=== PATIENT | female | born 1985 | race Caucasian/White ===

== ENCOUNTER 2017-12-29 15:42 | Emergency (ER) | payer SELFPAY ==
[~2017-12-29] VITALS: Ht 154.9 cm; Wt 79.4 kg
[~2017-12-29 15:42] MED LIST: ACHD5005 PO; AMOX500C2 PO; CPR500T PO; FERR-57 PO; HYDR-3714 PO; PHEN100T26 PO; PREN1TAB14 PO; PRM25T PO
[2017-12-29] MEDS ORDERED: NORG1TAB30 (16:07)
[2017-12-29] MEDS ORDERED: METF500T4 (16:07)
--- NOTE | 2017-12-29 16:42 | ED Headache ---
General Chief Complaint: Head/Cervical Problems Stated Complaint: LOSS OF VISION, COLD, SHAKING - PRE DIABETIC Nursing Triage Note: ARRIVED VIA AMB TO ROOM 04. STATES APPX 30 MINUTES AGO HER VISION TURNED TO WHITE FOR APPX 5-7 MINUTES AND THEN SHE DEVELOPED A HEADACHE. Nursing Sepsis Screen: No Definite Risk Source: patient, family Exam Limitations: language barrier (speak Tunisian. Interpretation by family member.) History of Present Illness Date Seen by Provider: Dec 29, 2017 Time Seen by Provider: 16:23 Initial Comments Patient presents to ER by private conveyance with chief complaint that about an hour prior to arrival she had a 15 minute long severe headache that came on suddenly started in her left face behind eye and radiated around the parietal scalp to the occiput. She says her vision began to go white and all she could see was just shadows and this was in both eyes she was practically blind. She was trying to drive home after taking her kids up from school and had to plant puller until someone came to help her. About 15 minutes later without any medicines it went away on its own. She does have a history of migraines that are typically frontal and behind both eyes throbbing, constant and will go away after a couple doses of Excedrin migraine. She had one other episode of this about a month ago that she presented to her primary care physician's office for and they told her that she needed to go to the ER but as she left the clinic the headache went away in about 15-30 minutes so she did not pursue ER management. She did not follow-up on this either. She has not had any cough, fevers, chills, dysuria, nausea, chest pain, shortness of breath. Allergies and Home Medications Allergies Coded Allergies: NKANo Known Allergies (Verified Allergy, Unknown, 05/11/06) Home Medications Metformin HCl 500 Mg Tablet, (Reported) Norgestimate-Ethinyl Estradiol 1 Each Tablet, (Reported) Constitutional: No chills, No diaphoresis Eyes: See HPI, Blindness, Blurred Vision, Denies Drainage, Denies Foreign Body Sensation, Denies Pain, Denies Photophobia Ears, Nose, Mouth, Throat: denies ear pain, denies ear discharge Respiratory: No cough, No phlegm, No short of breath Cardiovascular: No Hx of Intervention, No palpitations Gastrointestinal: No constipation, No diarrhea, nausea (initially) Genitourinary: No discharge, No dysuria : No (on her period presently) LMP: Dec 29, 2017 Musculoskeletal: No back pain, No joint pain Past Xckvanb-Lwbevd-Feenbv Hx Patient Social History Alcohol Use: Denies Use Recreational Drug Use: No Smoking Status: Never a Smoker Recent Foreign Travel: No Contact w/Someone Who Travel: No Recent Infectious Disease Expo: No Recent Hopitalizations: Yes Immunizations Up To Date Tetanus Booster (TDap): Less than 5yrs Date of Influenza Vaccine: Oct 26, 2013 Surgeries History of Surgeries: No Respiratory History of Respiratory Disorde: No Cardiovascular History of Cardiac Disorders: No Neurological History of Neurological Disord: No Reproductive System Hx Reproductive Disorders: No Sexually Transmitted Disease: No HIV/AIDS: No Female Reproductive Disorders: Denies Genitourinary History of Genitourinary Disor: Yes Genitourinary Disorders: Kidney Infection, Kidney Stones Gastrointestinal History of Gastrointestinal Di: No Musculoskeletal History of Musculoskeletal Dis: No Endocrine History of Endocrine Disorders: Yes (PRE DIABETIC) HEENT Loss of Vision: Denies Hearing Impairment: Denies Cancer History of Cancer: No Psychosocial History of Psychiatric Problem: No Integumentary History of Skin or Integumenta: No Blood Transfusions History of Blood Disorders: Yes (ANEMIA WITH Previous ) Adverse Reaction to a Blood Tr: No Family Medical History Significant Family History: No Pertinent Family Hx Physical Exam Vital Signs Vital Signs - First Documented 12/29/17 15:49 Temp 97.5 Pulse 97 Resp 18 B/P (MAP) 114/79 (91) Pulse Ox 99 Capillary Refill : Less Than 3 Seconds General Appearance: WD/WN, no apparent distress HEENT: PERRL/EOMI, TMs normal, pharynx normal Neck: non-tender, full range of motion, supple, normal inspection Cardiovascular: normal peripheral pulses, regular rate, rhythm, no edema Respiratory: chest non-tender, lungs clear, normal breath sounds Gastrointestinal: normal bowel sounds, non tender, soft Back: normal inspection, no vertebral tenderness Extremities: normal inspection, no pedal edema, normal capillary refill Psychiatric: alert, oriented x 3 Crainal Nerves: normal hearing, normal speech, PERRL Coordination/Gait: normal finger to nose, normal gait Motor/Sensory: no motor deficit, no sensory deficit, no pronator drift Skin: normal color, warm/dry Lymphatic: no adenopathy Progress/Results/Core Measures Results/Orders Lab Results Laboratory Tests Test 12/29/17 15:59 12/29/17 16:30 12/29/17 16:41 Range/Units Glucometer 107 70-110 MG/DL Urine Color YELLOW Urine Clarity VERY CLOUDY H Urine pH 6.5 5-9 Urine Specific [place] 1.020 1.016-1.022 Urine Protein 3+ H NEGATIVE Urine Glucose (UA) NEGATIVE NEGATIVE Urine Ketones NEGATIVE NEGATIVE Urine Nitrite NEGATIVE NEGATIVE Urine Bilirubin NEGATIVE NEGATIVE Urine Urobilinogen 1 NORMAL MG/DL Urine Leukocyte Esterase 1+ H NEGATIVE Urine RBC (Auto) 5+ H NEGATIVE Urine RBC >100 H /HPF Urine WBC 0-2 /HPF Urine Squamous Epithelial Cells 0-2 /HPF Urine Crystals NONE /LPF Urine Bacteria NEGATIVE /HPF Urine Casts NONE /LPF Urine Mucus SMALL H /LPF Urine Culture Indicated NO Urine Opiates Screen NEGATIVE NEGATIVE Urine Oxycodone Screen NEGATIVE NEGATIVE Urine Methadone Screen NEGATIVE NEGATIVE Urine Propoxyphene Screen NEGATIVE NEGATIVE Urine Barbiturates Screen NEGATIVE NEGATIVE Ur Tricyclic Antidepressants Screen NEGATIVE NEGATIVE Urine Phencyclidine Screen NEGATIVE NEGATIVE Urine Amphetamines Screen NEGATIVE NEGATIVE Urine Methamphetamines Screen NEGATIVE NEGATIVE Urine Benzodiazepines Screen NEGATIVE NEGATIVE Urine Cocaine Screen NEGATIVE NEGATIVE Urine Cannabinoids Screen NEGATIVE NEGATIVE White Blood Count 8.9 4.3-11.0 10^3/uL Red Blood Count 4.09 L 4.35-5.85 10^6/uL Hemoglobin 11.1 L 11.5-16.0 G/DL Hematocrit 34 L 35-52 % Mean Corpuscular Volume 82 80-99 FL Mean Corpuscular Hemoglobin 27 25-34 PG Mean Corpuscular Hemoglobin Concent 33 32-36 G/DL Red Cell Distribution Width 14.2 10.0-14.5 % Platelet Count 259 130-400 10^3/uL Mean Platelet Volume 11.1 H 7.4-10.4 FL Neutrophils (%) (Auto) 82 H 42-75 % Lymphocytes (%) (Auto) 15 12-44 % Monocytes (%) (Auto) 2 0-12 % Eosinophils (%) (Auto) 1 0-10 % Basophils (%) (Auto) 0 0-10 % Neutrophils # (Auto) 7.2 1.8-7.8 X 10^3 Lymphocytes # (Auto) 1.3 1.0-4.0 X 10^3 Monocytes # (Auto) 0.2 0.0-1.0 X 10^3 Eosinophils # (Auto) 0.1 0.0-0.3 10^3/uL Basophils # (Auto) 0.0 0.0-0.1 10^3/uL Sodium Level 140 135-145 MMOL/L Potassium Level 3.8 3.6-5.0 MMOL/L Chloride Level 108 H 98-107 MMOL/L Carbon Dioxide Level 18 L 21-32 MMOL/L Anion Gap 14 5-14 MMOL/L Blood Urea Nitrogen 14 7-18 MG/DL Creatinine 0.69 0.60-1.30 MG/DL Estimat Glomerular Filtration Rate > 60 BUN/Creatinine Ratio 20 Glucose Level 113 H 70-105 MG/DL Calcium Level 8.4 L 8.5-10.1 MG/DL Total Bilirubin 0.2 0.1-1.0 MG/DL Aspartate Amino Transf (AST/SGOT) 18 5-34 U/L Alanine Aminotransferase (ALT/SGPT) 14 0-55 U/L Alkaline Phosphatase 69 40-136 U/L C-Reactive Protein High Sensitivity 0.96 H 0.00-0.50 MG/DL Total Protein 7.2 6.4-8.2 GM/DL Albumin 3.6 3.2-4.5 GM/DL My Orders Orders - NATALIE ROBERTS Ct Head Wo (12/29/17 16:30) Saline Lock/Iv-Start (12/29/17 16:30) Alcohol (12/29/17 16:30) Cbc With Automated Diff (12/29/17 16:30) Comprehensive Metabolic Panel (12/29/17 16:30) Hs C Reactive Protein (12/29/17 16:30) Drug Screen Stat (Urine) (12/29/17 16:30) Ua Culture If Indicated (12/29/17 16:30) Erythrocyte Sedimentation Rate (12/29/17 16:30) Vital Signs/I&O Vital Sign - Last 12Hours 12/29/17 15:49 Temp 97.5 Pulse 97 Resp 18 B/P (MAP) 114/79 (91) Pulse Ox 99 Blood Pressure Mean: 91 Progress Note #1: Time: 16:42 Progress Note No headaches or other neurologic symptoms now but this is a change in her headache pattern. Plan to scan her head with a CT noncontrast. Discussed with radiologist in [place] for optimal imaging study and they recommended a CT noncontrast and if further workup is necessary an MRI would be appropriate. We' ll get some blood and urine looking for any evidence of inflammation to include a CRP/ESR. If we don't find anything to act on today she will need to follow-up with her primary care physician for further workup. GCA? Progress Note #2: Time: 17:15 Progress Note Other than a mild normochromic normocytic anemia the patient has unremarkable labs and urine. Red blood cells seen are due to her being on her period. CT is unremarkable. She can follow up outpatient for further evaluation to possibly include MRI for a atypical migraine presentation. Diagnostic Imaging Diagonstic Imaging: CT Plain Films/CT/US/NM/MRI: head (noncontrast) Comments VIA [facility], [facility]. [place], [place] NAME: CHRISTOPHE VARGAS [facility] REC#: [id number] PT STATUS: REG ER : 1985 PHYSICIAN: NATALIE ROBERTS MD ADMIT DATE: 12/29/17/ER Draft Date of Exam:12/29/17 CT HEAD WO Clinical indication: A patient with headaches and loss of vision. Exam: Axial CT scan of the brain performed without IV contrast. Comparison: None. Findings: There is no evidence of acute cerebral infarct, intracranial hemorrhage, or gross mass effect. There is normal arreola-white matter distinction. The brain parenchymal volume appears appropriate for patient's age. There is no significant midline shift or herniation. There is no evidence of hydrocephalus. The basal cisterns are unremarkable. The skull, extracranial soft tissue, and orbits are unremarkable. The paranasal sinuses are unremarkable. Impression: Unremarkable CT scan of the brain. Dictated on workstation # [id number] Dict: 12/29/17 1652 Trans: 12/29/17 1655 [facility] [id number] Interpreted by: KERA OSMAN MD Electronically signed by: Reviewed: Reviewed by Me Departure Impression Impression: Primary Impression: Headache Qualified Codes: R51 - Headache Additional Impressions: Transient blindness of both eyes Normocytic anemia Disposition: 01 HOME, SELF-CARE Condition: Stable Departure-Patient Inst. Decision time for Depature: 17:34 Referrals: [facility] (PCP/Family) Primary Care Physician Patient Instructions: Migraine Headache (DC) Add. Discharge Instructions: Your symptoms may be related to your migraine headache pattern. If the pattern changes and is accompanied by slurred speech, facial droop, inability to walk or weakness you should return to the ER immediately. However if your symptoms remain the same please start a diary of your headache symptoms to include things are doing prior to the headache as well as along the headache lasted and what you used to break the headache. Plan to follow up with your primary care physician in the next 1-2 weeks. You may benefit from a referral to a neurologist if initial workup with your primary care physician is not fruitful. All discharge instructions reviewed with patient and/or family. Voiced understanding. Copy Copies To 1: GET GOLDMAN TITUS J Dec 29, 2017 16:41
[2017-12-29 16:48] LABS: BASOPHILS % (AUTO) 0 % (0-10); EOSINOPHILS # (AUTO) 0.1 10^3/uL (0.0-0.3); EOSINOPHILS % (AUTO) 1 % (0-10); HEMATOCRIT 34 % (35-52); HEMOGLOBIN 11.1 G/DL (11.5-16.0); LYMPHOCYTES # (AUTO) 1.3 X 10^3 (1.0-4.0); LYMPHOCYTES % (AUTO) 15 % (12-44); MEAN CORPUSCULAR HEMOGLOBIN 27 PG (25-34); MEAN CORPUSCULAR HGB CONC 33 G/DL (32-36); MEAN CORPUSCULAR VOLUME 82 FL (80-99); MEAN PLATELET VOLUME 11.1 FL (7.4-10.4); MONOCYTES # (AUTO) 0.2 X 10^3 (0.0-1.0); MONOCYTES % (AUTO) 2 % (0-12); NEUTROPHILS # (AUTO) 7.2 X 10^3 (1.8-7.8); NEUTROPHILS % (AUTO) 82 % (42-75); PLATELET COUNT 259 10^3/uL (130-400); RED BLOOD COUNT 4.09 10^6/uL (4.35-5.85); RED CELL DISTRIBUTION WIDTH 14.2 % (10.0-14.5); WHITE BLOOD COUNT 8.9 10^3/uL (4.3-11.0)
[2017-12-29 16:50] LABS: BILIRUBIN,URINE NEGATIVE (NEGATIVE); CLARITY,URINE VERY CLOUDY; COLOR,URINE YELLOW; GLUCOSE, URINE (UA) NEGATIVE (NEGATIVE); KETONES,URINE NEGATIVE (NEGATIVE); LEUKOCYTE ESTERASE ,URINE 1+ (NEGATIVE); NITRITE,URINE NEGATIVE (NEGATIVE); PH,URINE 6.5 (5-9); PROTEIN,URINE 3+ (NEGATIVE); UROBILINOGEN,URINE 1 MG/DL (NORMAL)
--- NOTE | 2017-12-29 16:55 | Diagnostic Imaging Report ---
Clinical indication: A patient with headaches and loss of vision. Exam: Axial CT scan of the brain performed without IV contrast. Comparison: None. Findings: There is no evidence of acute cerebral infarct, intracranial hemorrhage, or gross mass effect. There is normal arreola-white matter distinction. The brain parenchymal volume appears appropriate for patient's age. There is no significant midline shift or herniation. There is no evidence of hydrocephalus. The basal cisterns are unremarkable. The skull, extracranial soft tissue, and orbits are unremarkable. The paranasal sinuses are unremarkable. Impression: Unremarkable CT scan of the brain. Dictated by: Dictated on workstation # [id number]
[2017-12-29 16:58] LABS: AMPHETAMINE SCREEN, URINE NEGATIVE (NEGATIVE); BARBITURATE SCREEN URINE NEGATIVE (NEGATIVE); BENZODIAZEPINES SCREEN URINE NEGATIVE (NEGATIVE); CANNABINOID SCREEN, URINE NEGATIVE (NEGATIVE); COCAINE SCREEN URINE NEGATIVE (NEGATIVE); METHADONE STAT NEGATIVE (NEGATIVE); METHAMPHETAMINE SCREEN URINE S NEGATIVE (NEGATIVE); OPIATE SCREEN URINE NEGATIVE (NEGATIVE); OXYCODONE STAT NEGATIVE (NEGATIVE); PROPOXYPHENE STAT NEGATIVE (NEGATIVE); TRICYCLIC ANTIDEPRESSANTS SCRE NEGATIVE (NEGATIVE)
[2017-12-29 17:04] LABS: BACTERIA,URINE NEGATIVE /HPF; RBC,URINE >100 /HPF; SQUAMOUS EPITHELIAL CELL,UR 0-2 /HPF; WBC,URINE 0-2 /HPF
[2017-12-29 17:12] LABS: ALANINE AMINOTRANSFERASE 14 U/L (0-55); ALBUMIN 3.6 GM/DL (3.2-4.5); ALKALINE PHOSPHATASE 69 U/L (40-136); BILIRUBIN,TOTAL 0.2 MG/DL (0.1-1.0); BUN/CREATININE RATIO 20; CALCIUM 8.4 MG/DL (8.5-10.1); CARBON DIOXIDE 18 MMOL/L (21-32); CHLORIDE 108 MMOL/L (98-107); CREATININE SERUM 0.69 MG/DL (0.60-1.30); GFR ESTIMATED > 60; GLUCOSE 113 MG/DL (70-105); POTASSIUM 3.8 MMOL/L (3.6-5.0); SODIUM 140 MMOL/L (135-145); TOTAL PROTEIN 7.2 GM/DL (6.4-8.2)
[2017-12-29 17:16] LABS: ERYTHROCYTE SEDIMENTATION RATE 36 MM/HR (0-20)
[2017-12-29 17:40] VITALS: BP 124/80
== END 2017-12-29 17:40 | disposition home or self-care (01) ==
LOC: EDUNIT# 15:42 → ER 15:44
DX: R51 Headache (principal); H53.123 Transient visual loss, bilateral; D64.9 Anemia, unspecified; Z79.84 Long term (current) use of oral hypoglycemic drugs; Z88.1 Allergy status to other antibiotic agents; Z87.442 Personal history of urinary calculi; Z87.448 Personal history of other diseases of urinary system
CPT/HCPCS: 36415; 70450; 80053; 80306; 80320; 81000; 82962; 84703; 85025; 85652; 86141

== ENCOUNTER 2018-06-09 17:45 | Day surgery (SDC) | payer OTHER ==
[~2018-06-09] VITALS: Ht 154.9 cm; Wt 81.6 kg
[2018-06-09 17:45] VITALS: BP 108/66
[~2018-06-09 17:45] MED LIST changes: -HYDR-34 PO; -SULF1TAB35 PO
[2018-06-09] MEDS ORDERED: ONDANSETRON 4 MG/2 ML (SDV) Z0FRAN IVP PRN (18:00)
[2018-06-09] MEDS ORDERED: HYDROcodone/APAP 7.5 MG/325 MG (LORTAB, LORCET PLUS) TABLET PO PRN (18:00)
[2018-06-09 18:25] LABS: BASOPHILS % (AUTO) 0 % (0-10); EOSINOPHILS # (AUTO) 0.2 10^3/uL (0.0-0.3); EOSINOPHILS % (AUTO) 2 % (0-10); HEMATOCRIT 34 % (35-52); HEMOGLOBIN 11.1 G/DL (11.5-16.0); LYMPHOCYTES % (AUTO) 16 % (12-44); MEAN CORPUSCULAR HEMOGLOBIN 27 PG (25-34); MEAN CORPUSCULAR HGB CONC 33 G/DL (32-36); MEAN CORPUSCULAR VOLUME 81 FL (80-99); MEAN PLATELET VOLUME 10.8 FL (7.4-10.4); MONOCYTES # (AUTO) 0.7 X 10^3 (0.0-1.0); MONOCYTES % (AUTO) 6 % (0-12); NEUTROPHILS # (AUTO) 9.2 X 10^3 (1.8-7.8); NEUTROPHILS % (AUTO) 76 % (42-75); PLATELET COUNT 297 10^3/uL (130-400); RED BLOOD COUNT 4.15 10^6/uL (4.35-5.85); RED CELL DISTRIBUTION WIDTH 14.3 % (10.0-14.5); WHITE BLOOD COUNT 12.2 10^3/uL (4.3-11.0)
--- NOTE | 2018-06-09 18:35 | HISTORY AND PHYSICAL ---
DATE OF SERVICE: ATTENDING PRIMARY CARE PHYSICIAN: Dr. Parr. HISTORY OF PRESENT ILLNESS: The patient is a 33-year-old female who presented to [facility] with pain in the right lower abdominal quadrant for the past two days. She reports that the pain is sharp in nature and has increased in severity over time. She does not report any fever or chills; however, did report some mild nausea starting today; however, no vomiting. She states that she has not had this type of symptoms before in the past. She states that no episodes of diarrhea nor constipation. She was sent for CT scan, which did show dilatation as well as mild inflammation of the appendix consistent with an early appendicitis. PAST MEDICAL HISTORY: Non-insulin dependent diabetes, history of nephrolithiasis. PAST SURGICAL HISTORY: Cystoscopy and renal stone extraction. ALLERGIES: No known drug allergies. MEDICATIONS: Metformin daily. SOCIAL HISTORY: Negative smoke, negative alcohol. FAMILY HISTORY: Noncontributory. REVIEW OF SYSTEMS: Well-nourished female currently in no acute distress. She is not experiencing any shortness of breath or difficulty breathing. No chest pain, palpitations, diaphoresis. Intermittent episodes of nausea, no vomiting. Pain in the right lower abdominal quadrant, which is sharp in nature; however, tolerable. No fever, chills, no recent inadvertent weight loss. PHYSICAL EXAMINATION: VITAL SIGNS: Stable, afebrile. CHEST: Clear. Good breath sounds bilaterally. HEART: Regular, no murmurs. EXTREMITIES: No lower extremity edema. Negative Homans sign. HEENT: No scleral icterus. NECK: No cervical lymphadenopathy. ABDOMEN: Soft, nondistended. There is pain in the right lower abdominal quadrant at McBurney's point with voluntary guarding, no rebound. SKIN: Warm, dry. ASSESSMENT AND PLAN: A 33-year-old female with early acute appendicitis. We will proceed with a diagnostic laparoscopy as well as laparoscopic appendectomy. We will first admit her and IV hydrate her as well as start antibiotics. Job ID: [id number] DocumentID: [id number] Dictated Date: 06/09/2018 17:42:10 Duplicating Machine Servicer Date: 06/09/2018 18:35:07 Dictated By: DEBBIE HAAS MD
[2018-06-09 18:41] LABS: BUN/CREATININE RATIO 15; CALCIUM 9.4 MG/DL (8.5-10.1); CARBON DIOXIDE 21 MMOL/L (21-32); CHLORIDE 109 MMOL/L (98-107); CREATININE SERUM 0.65 MG/DL (0.60-1.30); GFR ESTIMATED > 60; GLUCOSE 106 MG/DL (70-105); SODIUM 139 MMOL/L (135-145)
[2018-06-09] MEDS: CIPROFLOXACIN 400 MG/D5W 200 ML (PRE-MIX) IV SCH (18:51)
[2018-06-09] MEDS: LACTATED RINGERS 1,000 ML IV SCH (18:51)
[2018-06-09] MEDS: metroNIDAZOLE 500 MG/100 ML IVPB (PRE-MIX) IV SCH (18:51)
--- NOTE | 2018-06-09 20:01 | Progress Note-Pre Operative ---
Pre-Operative Progress Note H&P Reviewed The H&P was reviewed, patient examined and no changes noted. Date Seen by Provider: Jun 09, 2018 Time Seen by Provider: 20:00 Date H&P Reviewed: Jun 09, 2018 Time H&P Reviewed: 20:00 Pre-Operative Diagnosis: acute appendicitis DEBBIE HAAS MD Jun 09, 2018 20:01
[2018-06-09 20:14] VITALS: BP 104/59
--- OUTSIDE RECORDS SUMMARY | 2018-06-09 22:20 | XMS REPORT | Continuity of Care Document ---
Author Author [facility] Organization [facility] Address Unknown Phone Unavailable Support Name Relationship Address Phone SANDEEP MEDINA Next Of Kin [address] [place] [address] Insurance Providers Payer Name Policy Number Subscriber Name Relationship Self Pay AntelmoRakel 01 Self / Same As Patient Advance Directives Directive Response Recorded Date Advance Directives N 03/30/13 1:22pm Health Care Power of Hand Twister N 07/28/11 8:35pm Organ Donor N 07/28/11 8:35pm Problems No Known Problems or Medical conditions. Family History History Response Recorded Date/Time Hx Family Cancer N 03/30/13 1:36pm Social History History Response Recorded Date/Time Alcohol Use Denies Use 03/30/13 1:33pm Recreational Drug Use N 03/30/13 1:33pm Recent Foreign Travel N 03/30/13 1:33pm Recent Infectious Disease Exposure N 08/04 1:33pm Hospitalization with Isolation Denies 10/04 1:57pm Allergies, Adverse Reactions, Alerts Allergen Type Severity Reaction Last Updated No Known Allergies Allergy Unknown 05/11/06 Medications Medication Dose Units Route Sig Qty Days Ferrous Sulfate 325 Mg PO DAILY Vits W-Ca,Fe,Fa(<1MG) ( Vitamins) 1 Each PO DAILY Response Recorded Date/Time Status not known Unknown Results Test Date Result Interp. Ref. Range Absolute Reticulocyte Count October 28, 2009 4:09pm 41 10^3/uL N 22-82 Activated Partial Thromboplast Time November 15, 2008 12: 05pm 26 SEC N 24-35 Alanine Aminotransferase (ALT/SGPT) October 27, 2012 11: 53am 24 U/L L 30-65 Albumin October 27, 2012 11:53am 3.0 G/ DL L 3.4-5.0 Alkaline Phosphatase October 27, 2012 11:53am 79 U/L N 50-136 Amylase Level October 02, 2009 12:25pm 34 U/L N 25-115 Anisocytosis October 28, 2009 4:09pm MODERATE - Aspartate Amino Transf (AST/SGOT) October 27, 2012 11:53am 11 U/L L 15-37 BUN/Creatinine Ratio October 27, 2012 11:53am 12 - Band Neutrophils October 28, 2009 4:09pm 0 % - Basophils # (Auto) March 31, 2013 3:03pm 0.0 10^3/uL N 0.0-0.1 Basophils % (Manual) October 28, 2009 4:09pm 1 % - Basophils (%) (Auto) March 31, 2013 3:03pm 0 % N 0-10 Blood Urea Nitrogen October 27, 2012 11:53am 7 MG/DL N 7-18 Calcium Level October 27, 2012 11:53am 8.5 MG/DL N 8.5-10.1 Carbon Dioxide Level October 27, 2012 11:53am 23 MMOL/L N 21-32 Chloride Level October 27, 2012 11:53am 103 MMOL/L N 101-110 Cholesterol Level October 02, 2009 12:25pm 151 MG/DL N -200 Creatinine October 27, 2012 11:53am 0.6 MG/DL N 0.6-1.3 Elliptocytes October 28, 2009 4:09pm MODERATE - Eosinophils # (Auto) March 31, 2013 3:03pm 0.2 10^3/uL N 0.0-0.3 Eosinophils % (Manual) October 28, 2009 4:09pm 2 % - Eosinophils (%) (Auto) March 31, 2013 3:03pm 2 % N 0-10 Ferritin October 28, 2009 4:09pm 22 NG/ ML - Glucose Level October 27, 2012 11:53am 81 MG/DL N 74-106 HDL Cholesterol October 02, 2009 12:25pm 40 MG/DL N 35-60 HIV (1&2) Antibody October 27, 2012 11:53am NR - Hematocrit March 31, 2013 3:03pm 28 % L 35-52 Hemoglobin March 31, 2013 3:03pm 9.1 G/DL L 11.5-16.0 Hemoglobin A1c October 27, 2012 11:53am 4.9 % N 4.5-6.2 Hepatitis B Surface Antigen October 27, 2012 11:53am NR - Human Chorionic Gonadotropin, Quant November 15, 2008 12: 05pm 730 MIU/ML H 0-6 Iron Level October 28, 2009 4:09pm 76 UG/DL - LDL Cholesterol October 02, 2009 12:25pm 98 MG/DL N 0-129 Lipase October 02, 2009 12:25pm 163 U/ L N 114-286 Lymphocytes # (Auto) March 31, 2013 3:03pm 1.2 X 10^3 N 1.0-4.0 Lymphocytes % (Manual) October 28, 2009 4:09pm 18 % - Lymphocytes (%) (Auto) March 31, 2013 3:03pm 15 % N 12-44 Mean Corpuscular Hemoglobin March 31, 2013 3:03pm 28 PG N 25-34 Mean Corpuscular Hemoglobin Concent March 31, 2013 3:03pm 33 G/DL N 32-36 Mean Corpuscular Volume March 31, 2013 3:03pm 83 FL N 80-99 Mean Platelet Volume March 31, 2013 3:03pm 11.6 FL H 7.4-10.4 Microcytosis October 28, 2009 4:09pm MODERATE - Monocytes # (Auto) March 31, 2013 3:03pm 0.5 X 10^3 N 0.0-1.0 Monocytes % (Manual) October 28, 2009 4:09pm 1 % - Monocytes (%) (Auto) March 31, 2013 3:03pm 6 % N 0-12 Neutrophils # (Auto) March 31, 2013 3:03pm 6.1 X 10^3 N 1.8-7.8 Neutrophils % (Manual) October 28, 2009 4:09pm 78 % - Neutrophils (%) (Auto) March 31, 2013 3:03pm 76 % H 42-75 Percent Reticulocyte Count October 28, 2009 4:09pm 0.91 % N 0.50-2.40 Platelet Count March 31, 2013 3:03pm 165 10^3/uL N 130-400 Potassium Level October 27, 2012 11:53am 4.1 MMOL/L N 3.6-5.0 Prothromb Time International Ratio November 15, 2008 12: 05pm 1.1 N 0.8-1.4 Prothrombin Time November 15, 2008 12:05pm 15.0 SEC H 12.2-14.7 Rapid Plasma Reagin October 27, 2012 11:53am NR - Red Blood Count March 31, 2013 3:03pm 3.30 10^6/uL L 4.35-5.85 Red Cell Distribution Width March 31, 2013 3:03pm 14.1 % N 10.0-14.5 Rubella Antibody October 27, 2012 11:53am IMMUNE - Schistocytes October 28, 2009 4:09pm SLIGHT - Serum Test, Qualitative November 15, 2008 12:05pm Positive - Sodium Level October 27, 2012 11:53am 134 MMOL/L L 135-145 Spherocytes October 28, 2009 4:09pm SLIGHT - TSH [place] Testing October 27, 2012 11:53am 0.65 UIU/ML N 0.34-5.60 Total Bilirubin October 27, 2012 11:53am 0.3 MG/DL N 0.0-1.0 Total Iron Binding Capacity October 28, 2009 4:09pm 355 UG/DL - Total Protein October 27, 2012 11:53am 7.4 G/DL N 6.4-8.2 Transferrin % Saturation October 28, 2009 4:09pm 21 % - Triglycerides Level October 02, 2009 12:25pm 67 MG/DL N 30.0-150.0 Urine Bacteria March 30, 2013 12:40pm TRACE /HPF - Urine Bilirubin March 30, 2013 12:40pm NEGATIVE - Urine Casts March 30, 2013 12:40pm NONE / LPF - Urine Clarity March 30, 2013 12:40pm CLEAR - Urine Color March 30, 2013 12:40pm YELLOW - Urine Crystals March 30, 2013 12:40pm NONE /LPF - Urine Culture Indicated March 30, 2013 12:40pm YES - Urine Glucose (UA) March 30, 2013 12:40pm NEGATIVE - Urine Ketones March 30, 2013 12:40pm NEGATIVE - Urine Leukocyte Esterase March 30, 2013 12:40pm TRACE H - Urine Mucus March 30, 2013 12:40pm NEGATIVE /LPF - Urine Nitrite March 30, 2013 12:40pm NEGATIVE - Urine Test October 02, 2009 12:30pm NEGATIVE - Urine Protein March 30, 2013 12:40pm NEGATIVE - Urine RBC March 30, 2013 12:40pm 10-25 / HPF H - Urine Specific [place] March 30, 2013 12:40pm 1.025 H - Urine Squamous Epithelial Cells March 30, 2013 12:40pm 0-2 /HPF - Urine Urobilinogen March 30, 2013 12:40pm NORMAL MG/DL - Urine WBC March 30, 2013 12:40pm 5-10 / HPF H - Urine pH March 30, 2013 12:40pm 5 - VLDL Cholesterol October 02, 2009 12:25pm 13 MG/DL N 5-40 White Blood Count March 31, 2013 3:03pm 8.0 10^3/uL N 4.3-11.0 Pathology Consult Specimen October 28, 2009 4:09pm [id number] - Lab Scanned Report May 14, 2011 2:21pm Transfusion Reaction Form [id number] - Smear Scan October 02, 2009 12:25pm - Estimat Glomerular Filtration Rate October 27, 2012 11: 53am > 60 - Urine RBC (Auto) March 30, 2013 12:40pm 2+ H - Procedures Procedure Code Date MANUAL ASSIST DELIV NEC 73.59 05/11/06 TREATMENT OF MISCARRIAGE [id number] 11/15/08 MANUAL ASSIST DELIV NEC 73.59 07/29/11 OTHER INSTILLATION 96.49 07/28/11 MANUAL ASSIST DELIV NEC 73.59 03/30/13 MEDICAL INDUCTION LABOR 73.4 03/30/13 Urine Culture 03/30/13 Encounters Encounter Location Date/Time Discharged Inpatient [facility] 12:36pm
--- OUTSIDE RECORDS SUMMARY | 2018-06-09 22:20 | XMS REPORT | Continuity of Care Document ---
Author Author [facility] Organization [facility] Address Unknown Phone Unavailable Allergies Active Description Code Type Severity Reaction Onset Reported/Identified Relationship to Patient Clinical Status Yes NKANo Known Allergies NKA Miscellaneous Allergy Unknown N/A 05/11/2006 Medications There is no data. Problems Date Dx Coded Attending Type Code Diagnosis Diagnosed By 04/01/2013 CHASIDY PIZANO MD Ot 650 NORMAL DELIVERY 04/01/2013 CHASIDY PIZANO MD Ot V27.0 DELIVER-SINGLE LIVEBORN 09/29/2013 MARCO A DE LA CRUZ Ot 592.0 CALCULUS OF KIDNEY 09/29/2013 MARCO A DE LA CRUZ Ot 789.09 ABDOMINAL PAIN, OTHER SPECIFIED SITE 12/28/2013 CHASIDY PIZANO MD Ot 592.0 CALCULUS OF KIDNEY 12/28/2013 CHASIDY PIZANO MD Ot 592.1 CALCULUS OF URETER 12/29/2017 NATALIE ROBERTS MD Ot D64.9 ANEMIA, UNSPECIFIED 12/29/2017 NATALIE ROBERTS MD Ot H53.123 TRANSIENT VISUAL LOSS, BILATERAL 12/29/2017 NATALIE ROBERTS MD Ot R51 HEADACHE 12/29/2017 NATALIE ROBERTS MD Ot Z79.84 DATA PROCESSOR (CURRENT) USE OF ORAL HYPOGLYC 12/29/2017 NATALIE ROBERTS MD Ot Z87.442 PERSONAL HISTORY OF URINARY CALCULI 12/29/2017 NATALIE ROBERTS MD Ot Z87.448 PERSONAL HISTORY OF OTHER DISEASES OF UR 12/29/2017 NATALIE ROBERTS MD Ot Z88.1 ALLERGY STATUS TO OTHER ANTIBIOTIC AGENT 12/29/2017 Ot 285.9 ANEMIA NOS 12/29/2017 Ot 648.23 ANEMIA- ANTEPARTUM 12/29/2017 Ot 649.63 UTERINE SIZE DATE DISCREPANCY, ANTEPARTU 12/29/2017 CHASIDY PIZANO MD Ot 649.63 UTERINE SIZE DATE DISCREPANCY, ANTEPARTU 12/29/2017 CHASIDY PIZANO MD Ot V28.89 OTHER SPECIFIED SCREENING 12/29/2017 CHASIDY PIZANO MD Ot 592.0 CALCULUS OF KIDNEY 12/29/2017 CHASIDY PIZANO MD Ot 789.09 ABDOMINAL PAIN, OTHER SPECIFIED SITE 12/29/2017 CHASIDY PIZANO MD Ot 620.2 OVARIAN CYST NEC/NOS 12/29/2017 CHASIDY PIZANO MD Ot 625.9 FEM GENITAL SYMPTOMS NOS 12/30/2017 Ot 285.9 ANEMIA NOS 12/30/2017 Ot 648.23 ANEMIA- ANTEPARTUM 12/30/2017 Ot 649.63 UTERINE SIZE DATE DISCREPANCY, ANTEPARTU 12/30/2017 CHASIDY PIZANO MD Ot 649.63 UTERINE SIZE DATE DISCREPANCY, ANTEPARTU 12/30/2017 CHASIDY PIZANO MD Ot V28.89 OTHER SPECIFIED SCREENING 12/30/2017 CHASIDY PIZANO MD Ot 592.0 CALCULUS OF KIDNEY 12/30/2017 CHASIDY PIZANO MD Ot 789.09 ABDOMINAL PAIN, OTHER SPECIFIED SITE 12/30/2017 CHASIDY PIZANO MD Ot 620.2 OVARIAN CYST NEC/NOS 12/30/2017 CHASIDY PIZANO MD Ot 625.9 FEM GENITAL SYMPTOMS NOS 12/31/2017 NATALIE ROBERTS MD Ot D64.9 ANEMIA, UNSPECIFIED 12/31/2017 ALEJANDRA BRAVO, NATALIE Flores Ot H53.123 TRANSIENT VISUAL LOSS, BILATERAL 12/31/2017 NATALIE ROBERTS MD Ot R51 HEADACHE 12/31/2017 NATALIE ROBERTS MD Ot Z79.84 DATA PROCESSOR (CURRENT) USE OF ORAL HYPOGLYC 12/31/2017 NATALIE ROBERTS MD Ot Z87.442 PERSONAL HISTORY OF URINARY CALCULI 12/31/2017 NATALIE ROBERTS MD Ot Z87.448 PERSONAL HISTORY OF OTHER DISEASES OF UR 12/31/2017 NATALIE ROBERTS MD Ot Z88.1 ALLERGY STATUS TO OTHER ANTIBIOTIC AGENT 04/30/2018 Ot 649.63 UTERINE SIZE DATE DISCREPANCY, ANTEPARTU 04/30/2018 CHASIDY PIZANO MD Ot 649.63 UTERINE SIZE DATE DISCREPANCY, ANTEPARTU 04/30/2018 CHASIDY PIZANO MD Ot V28.89 OTHER SPECIFIED SCREENING 04/30/2018 CHASIDY PIZANO MD Ot 592.0 CALCULUS OF KIDNEY 04/30/2018 CHASIDY PIZANO MD Ot 789.09 ABDOMINAL PAIN, OTHER SPECIFIED SITE 04/30/2018 HARINDER BRAVO, CHASIDY Flores Ot 620.2 OVARIAN CYST NEC/NOS 04/30/2018 CHASIDY PIZANO MD Ot 625.9 FEM GENITAL SYMPTOMS NOS Procedures Code Description Performed By Performed On 73.4 MEDICAL INDUCTION LABOR 03/30/2013 73.59 MANUAL ASSIST DELIV NEC 03/30/2013 Results Test Result Range CBC With Differential/Platelet - 11/02/16 07:58 WBC 6.3 x10E3/uL 3.4-10.8 RBC 4.40 x10E6/uL 3.77-5.28 Hemoglobin 10.7 g/dL 11.1-15.9 Hematocrit 33.6 % 34.0-46.6 MCV 76 fL 79-97 MCH 24.3 pg 26.6-33.0 MCHC 31.8 g/dL 31.5-35.7 RDW 16.4 % 12.3-15.4 Platelets 286 x10E3/uL 150-379 Neutrophils 70 % Lymphs 21 % Monocytes 7 % Eos 2 % Basos 0 % Neutrophils (Absolute) 4.3 x10E3/uL 1.4-7.0 Lymphs (Absolute) 1.3 x10E3/uL 0.7-3.1 Monocytes(Absolute) 0.4 x10E3/uL 0.1-0.9 Eos (Absolute) 0.2 x10E3/uL 0.0-0.4 Baso (Absolute) 0.0 x10E3/uL 0.0-0.2 Immature Granulocytes 0 % Immature Grans (Abs) 0.0 x10E3/uL 0.0-0.1 Comp. Metabolic Panel (14) - 11/02/16 07:58 Glucose, Serum 101 mg/dL 65-99 BUN 13 mg/dL 6-20 Creatinine, Serum 0.66 mg/dL 0.57-1.00 eGFR If NonAfricn Am 116 mL/min/1.73 >59 eGFR If Africn Am 134 mL/min/1.73 >59 BUN/Creatinine Ratio 20 8-20 Sodium, Serum 142 mmol/L 134-144 Potassium, Serum 4.8 mmol/L 3.5-5.2 Chloride, Serum 107 mmol/L 96-106 Carbon Dioxide, Total 20 mmol/L 18-29 Calcium, Serum 8.9 mg/dL 8.7-10.2 Protein, Total, Serum 6.8 g/dL 6.0-8.5 Albumin, Serum 4.1 g/dL 3.5-5.5 Globulin, Total 2.7 g/dL 1.5-4.5 A/G Ratio 1.5 1.1-2.5 Bilirubin, Total 0.3 mg/dL 0.0-1.2 Alkaline Phosphatase, S 79 IU/L 39-117 AST (SGOT) 15 IU/L 0-40 ALT (SGPT) 12 IU/L 0-32 Lipid Panel - 11/02/16 07:58 Cholesterol, Total 173 mg/dL 100-199 Triglycerides 76 mg/dL 0-149 HDL Cholesterol 51 mg/dL >39 VLDL Cholesterol Faustino 15 mg/dL 5-40 LDL Cholesterol Calc 107 mg/dL 0-99 Hemoglobin A1c - 11/02/16 07:58 Hemoglobin A1c 5.8 % 4.8-5.6 Thyroid Larue Profile - 11/02/16 07:58 TSH 1.510 uIU/mL 0.450-4.500 Insulin - 11/02/16 07:58 Insulin 25.8 uIU/mL 2.6-24.9 Genital Culture, Routine - 12/25/16 17:28 Genital Culture, Routine Note Pap Lb, HPV-hr - 12/25/16 17:28 HPV, high-risk Negative Negative DIAGNOSIS: Comment Specimen adequacy: Comment Clinician provided ICD10: Comment Performed by: Comment . . Note: Comment ANEMIA PANEL - 11/05/17 09:14 IRON, TOTAL 72 mcg/dL 40-190 FERRITIN 7 ng/mL 10-154 IRON BINDING CAPACITY 443 mcg/dL (calc) 250-450 % SATURATION 16 % (calc) 11-50 CBC - 11/05/17 09:14 MESSAGE: NRG CONTAINER TYPE: LAVENDER NRG THYROID ANALYZER - 11/26/17 08:12 TSH 1.55 mIU/L NRG INSULIN LEVEL - 11/30/17 12:34 INSULIN 7.9 uIU/mL 2.0-19.6 Capillary blood glucose measurement by glucometer (mass/volume) - 12/29/17 15: 59 Capillary blood glucose measurement by glucometer (mass/volume) 107 mg/dL 70-110 Urine drug screening test - 12/29/17 16:30 Urine phencyclidine detection by screening method NEGATIVE NEGATIVE Urine benzodiazepines detection by screening method NEGATIVE NEGATIVE Urine cocaine detection NEGATIVE NEGATIVE Urine amphetamines detection by screening method NEGATIVE NEGATIVE Urine methamphetamine detection by screening method NEGATIVE NEGATIVE Urine cannabinoids detection by screening method NEGATIVE NEGATIVE Urine opiates detection by screening method NEGATIVE NEGATIVE Urine barbiturates detection NEGATIVE NEGATIVE Screening urine tricyclic antidepressants detection NEGATIVE NEGATIVE Urine methadone detection by screening method NEGATIVE NEGATIVE Urine oxycodone detection NEGATIVE NEGATIVE Urine propoxyphene detection NEGATIVE NEGATIVE Complete urinalysis with reflex to culture - 12/29/17 16:30 Urine color determination YELLOW NRG Urine clarity determination VERY CLOUDY NRG Urine pH measurement by test strip 6.5 5-9 Specific gravity of urine by test strip 1.020 1.016- 1.022 Urine protein assay by test strip, semi-quantitative 3+ NEGATIVE Urine glucose detection by automated test strip NEGATIVE NEGATIVE Erythrocytes detection in urine sediment by light microscopy 5+ NEGATIVE Urine ketones detection by automated test strip NEGATIVE NEGATIVE Urine nitrite detection by test strip NEGATIVE NEGATIVE Urine total bilirubin detection by test strip NEGATIVE NEGATIVE Urine urobilinogen measurement by automated test strip (mass/volume) 1 mg/dL NORMAL Urine leukocyte esterase detection by dipstick 1+ NEGATIVE Automated urine sediment erythrocyte count by microscopy (number/high power field) > [HPF] NRG Automated urine sediment leukocyte count by microscopy (number/high power field ) [HPF] NRG Bacteria detection in urine sediment by light microscopy NEGATIVE NRG Squamous epithelial cells detection in urine sediment by light microscopy 0-2 NRG Crystals detection in urine sediment by light microscopy NONE NRG Casts detection in urine sediment by light microscopy NONE NRG Mucus detection in urine sediment by light microscopy SMALL NRG Complete urinalysis with reflex to culture NO NRG Complete blood count (CBC) with automated white blood cell (WBC) differential - 12/29/17 16:41 Blood leukocytes automated count (number/volume) 8.9 10*3/uL 4.3-11.0 Blood erythrocytes automated count (number/volume) 4.09 10*6/uL 4.35-5.85 Venous blood hemoglobin measurement (mass/volume) 11.1 g/dL 11.5-16.0 Blood hematocrit (volume fraction) 34 % 35-52 Automated erythrocyte mean corpuscular volume 82 [foz_us] 80-99 Automated erythrocyte mean corpuscular hemoglobin (mass per erythrocyte) 27 pg 25-34 Automated erythrocyte mean corpuscular hemoglobin concentration measurement ( mass/volume) 33 g/dL 32-36 Automated erythrocyte distribution width ratio 14.2 % 10.0-14.5 Automated blood platelet count (count/volume) 259 10*3/uL 130-400 Automated blood platelet mean volume measurement 11.1 [foz_us] 7.4-10.4 Automated blood neutrophils/100 leukocytes 82 % 42-75 Automated blood lymphocytes/100 leukocytes 15 % 12-44 Blood monocytes/100 leukocytes 2 % 0-12 Automated blood eosinophils/100 leukocytes 1 % 0-10 Automated blood basophils/100 leukocytes 0 % 0-10 Blood neutrophils automated count (number/volume) 7.2 10*3 1.8-7.8 Blood lymphocytes automated count (number/volume) 1.3 10*3 1.0-4.0 Blood monocytes automated count (number/volume) 0.2 10*3 0.0-1.0 Automated eosinophil count 0.1 10*3/uL 0.0-0.3 Automated blood basophil count (count/volume) 0.0 10*3/uL 0.0-0.1 Comprehensive metabolic panel - 12/29/17 16:41 Serum or plasma sodium measurement (moles/volume) 140 mmol/L 135-145 Serum or plasma potassium measurement (moles/volume) 3.8 mmol/L 3.6-5.0 Serum or plasma chloride measurement (moles/volume) 108 mmol/L 98-107 Carbon dioxide 18 mmol/L 21-32 Serum or plasma anion gap determination (moles/volume) 14 mmol/L 5-14 Serum or plasma urea nitrogen measurement (mass/volume) 14 mg/dL 7-18 Serum or plasma creatinine measurement (mass/volume) 0.69 mg/dL 0.60-1.30 Serum or plasma urea nitrogen/creatinine mass ratio 20 NRG Serum or plasma creatinine measurement with calculation of estimated glomerular filtration rate > NRG Serum or plasma glucose measurement (mass/volume) 113 mg/dL 70-105 Serum or plasma calcium measurement (mass/volume) 8.4 mg/dL 8.5-10.1 Serum or plasma total bilirubin measurement (mass/volume) 0.2 mg/dL 0.1-1.0 Serum or plasma alkaline phosphatase measurement (enzymatic activity/volume) 69 U/L 40-136 Serum or plasma aspartate aminotransferase measurement (enzymatic activity/ volume) 18 U/L 5-34 Serum or plasma alanine aminotransferase measurement (enzymatic activity/volume ) 14 U/L 0-55 Serum or plasma protein measurement (mass/volume) 7.2 g/dL 6.4-8.2 Serum or plasma albumin measurement (mass/volume) 3.6 g/dL 3.2-4.5 Serum or plasma C reactive protein measurement (mass/volume) - 12/29/17 16:41 Serum or plasma C reactive protein measurement (mass/volume) 0.96 mg /dL 0.00-0.50 Erythrocyte sedimentation rate by westergren method - 12/29/17 16:41 Erythrocyte sedimentation rate by westergren method 36 mm 0-20 Serum or plasma ethanol measurement (mass/volume) - 12/29/17 16:41 Serum or plasma ethanol measurement (mass/volume) < mg/dL <10 CULTURE, GENITAL - 01/11/18 16:36 CULTURE, GENITAL SEE NOTE NRG Complete blood count (CBC) with automated white blood cell (WBC) differential - 06/09/18 18:15 Blood leukocytes automated count (number/volume) 12.2 10*3/uL 4.3-11.0 Blood erythrocytes automated count (number/volume) 4.15 10*6/uL 4.35-5.85 Venous blood hemoglobin measurement (mass/volume) 11.1 g/dL 11.5-16.0 Blood hematocrit (volume fraction) 34 % 35-52 Automated erythrocyte mean corpuscular volume 81 [foz_us] 80-99 Automated erythrocyte mean corpuscular hemoglobin (mass per erythrocyte) 27 pg 25-34 Automated erythrocyte mean corpuscular hemoglobin concentration measurement ( mass/volume) 33 g/dL 32-36 Automated erythrocyte distribution width ratio 14.3 % 10.0-14.5 Automated blood platelet count (count/volume) 297 10*3/uL 130-400 Automated blood platelet mean volume measurement 10.8 [foz_us] 7.4-10.4 Automated blood neutrophils/100 leukocytes 76 % 42-75 Automated blood lymphocytes/100 leukocytes 16 % 12-44 Blood monocytes/100 leukocytes 6 % 0-12 Automated blood eosinophils/100 leukocytes 2 % 0-10 Automated blood basophils/100 leukocytes 0 % 0-10 Blood neutrophils automated count (number/volume) 9.2 10*3 1.8-7.8 Blood lymphocytes automated count (number/volume) 2.0 10*3 1.0-4.0 Blood monocytes automated count (number/volume) 0.7 10*3 0.0-1.0 Automated eosinophil count 0.2 10*3/uL 0.0-0.3 Automated blood basophil count (count/volume) 0.0 10*3/uL 0.0-0.1 Whole blood basic metabolic panel - 06/09/18 18:15 Serum or plasma sodium measurement (moles/volume) 139 mmol/L 135-145 Serum or plasma potassium measurement (moles/volume) 4.0 mmol/L 3.6-5.0 Serum or plasma chloride measurement (moles/volume) 109 mmol/L 98-107 Carbon dioxide 21 mmol/L 21-32 Serum or plasma anion gap determination (moles/volume) 9 mmol/L 5-14 Serum or plasma urea nitrogen measurement (mass/volume) 10 mg/dL 7-18 Serum or plasma creatinine measurement (mass/volume) 0.65 mg/dL 0.60-1.30 Serum or plasma urea nitrogen/creatinine mass ratio 15 NRG Serum or plasma creatinine measurement with calculation of estimated glomerular filtration rate > NRG Serum or plasma glucose measurement (mass/volume) 106 mg/dL 70-105 Serum or plasma calcium measurement (mass/volume) 9.4 mg/dL 8.5-10.1 Encounters ACCT No. Visit Date/Time Discharge Status Pt. Type Provider Facility Loc./Unit Complaint [id number] 12/29/2017 15:44:00 12/29/2017 17:40:00 DIS Emergency NATALIE ROBERTS MD [facility] ER LOSS OF VISION, COLD, SHAKING - PRE DIABETIC [id number] 04/12/2014 15:22:00 04/12/2014 23:59:59 CLS Outpatient CHASIDY PIZANO MD [facility] RAD PELVIC PAIN LEFT OVARIAN CYST [id number] 12/27/2013 12:00:00 12/28/2013 15:30:00 DIS Outpatient CHASIDY PIZANO MD [facility] SDC KIDNEY STONE [id number] 12/12/2013 09:11:00 12/12/2013 23:59:59 CLS Outpatient CHASIDY PIZANO MD [facility] RAD KIDNEY STONE,FLANK PAIN [id number] 09/29/2013 17:06:00 09/29/2013 23:59:59 CLS Outpatient [id number] 09/29/2013 18:20:00 09/29/2013 21:29:00 DIS Emergency MARCO A DE LA CRUZ [facility] ER R SIDE ABDOMINAL PAIN KIDNEY STONES [id number] 03/30/2013 12:36:00 04/01/2013 13:30:00 DIS Inpatient CHASIDY PIZANO MD [facility] WS INDUCTION [id number] 03/16/2013 12:52:00 03/16/2013 23:59:59 CLS Outpatient CHASIDY PIZANO MD [facility] RAD POSITION, HEARTRATE [id number] 06/09/2018 18:26:00 Document Registration [id number] 01/02/2013 10:08:00 Document Registration [id number] 10/27/2012 11:32:00 Document Registration [id number] 12/31/2016 13:05:00 Document Registration [id number] 12/31/2016 14:08:00 Document Registration [id number] 11/03/2016 18:05:00 Document Registration [id number] 04/21/2018 15:00:00 04/21/2018 23:59:59 [facility] [id number] 01/11/2018 15:40:00 Document Registration [id number] 11/30/2017 12:20:00 Document Registration [id number] 11/26/2017 08:20:00 Document Registration [id number] 11/05/2017 09:00:00 Document Registration
[2018-06-10] VITALS: BP 103/59
[2018-06-10] MEDS: LACTATED RINGERS 1,000 ML IV SCH ×2 (02:00→07:32)
[2018-06-10 04:20] VITALS: BP 113/56
[2018-06-10] MEDS: CIPROFLOXACIN 400 MG/D5W 200 ML (PRE-MIX) IV SCH (05:13)
[2018-06-10] MEDS: fentaNYL INJECTION 100 MCG/2 ML AMP IVP PRN ×2 (05:25→13:00)
[2018-06-10] MEDS: metroNIDAZOLE 500 MG/100 ML IVPB (PRE-MIX) IV SCH (06:17)
[2018-06-10 08:00] VITALS: BP 109/54
--- NOTE | 2018-06-10 09:07 | History & Physicial (CHS) ---
HPI History of Present Illness: Patient is a 33 year old female who presented to [facility] with RLQ abdominal pain since Wednesday. She states that the pain is sharp and has increased in severity since presentation. She denies that the pain radiates anywhere. Admits to mild nausea but no vomiting. She denies diarrhea or constipation. She states that she has not had anything like this happen in past. She denies urinary frequency and dysuria. She is aware that her CT results showed inflammation of the appendix and a prepared for surgery. Source: patient Exam Limitations: no limitations Date seen by provider: Jun 10, 2018 Time Seen by Provider: 08:15 Attending Physician Chanel Parr MD PCP [facility] [place] Consult Date of Admission Jun 09, 2018 at 17:45 Home Medications Home Medications Reviewed patient Home Medication Reconciliation performed by pharmacy medication reconciliations health care sanitary technician and/or nursing. Patients Allergies have been reviewed. Allergies Coded Allergies: NKANo Known Allergies (Verified Allergy, Unknown, 05/11/06) GMP-[id number]-Xzxett Hx Patient Social History Alcohol Use: Denies Use Recreational Drug Use: No Smoking Status: Never a Smoker Recent Foreign Travel: No Contact w/other who traveled: No Recent Hopitalizations: Yes Recent Infectious Disease Expo: No Physical Abuse Screen: No Sexual Abuse: No Immunizations Up To Date Tetanus Booster (TDap): Less than 5yrs Date of Influenza Vaccine: Oct 26, 2013 Family Medical History Significant Family History: No Pertinent Family Hx Family History: Diabetes mellitus Review of Systems ([facility]) Constitutional: No chills, No dizziness, No fever, No malaise, No weakness EENTM: no symptoms reported Respiratory: No cough, No short of breath Cardiovascular: No chest pain, No palpitations Gastrointestinal: abdominal pain (RLQ); No constipation, No diarrhea; nausea ( mild); No vomiting Genitourinary: No dysuria, No frequency, No hematuria Musculoskeletal: no symptoms reported Skin: no symptoms reported Psychiatric/Neurological: No Symptoms Reported Physical Exam-([facility]) Physical Exam Vital Signs VS - Last 72 Hours, by Label 06/09/18 06/09/18 06/09/18 06/10/18 17:45 19:45 20:14 00:00 Temp 97.7 97.8 99.5 Pulse 89 88 87 Resp 16 16 16 B/P (MAP) 108/66 (80) 104/59 (74) 103/59 (74) Pulse Ox 99 97 97 O2 Delivery Room Air Room Air Room Air Room Air 06/10/18 04:20 Temp 98.3 Pulse 90 Resp 16 B/P (MAP) 113/56 (75) Pulse Ox 97 O2 Delivery Room Air Capillary Refill : Less Than 3 Seconds General Appearance: no apparent distress, mild distress HEENT: PERRL/EOMI Neck: non-tender, full range of motion, supple, normal inspection Respiratory: chest non-tender, lungs clear, normal breath sounds, no respiratory distress, no accessory muscle use Cardiovascular: regular rate, rhythm, no edema, no gallop, no JVD, no murmur Gastrointestinal: normal bowel sounds, soft, no organomegaly, no pulsatile mass , tenderness (RLQ) Rectal: deferred Back: normal inspection Extremities: non-tender, normal inspection, no pedal edema, no calf tenderness Neurologic/Psychiatric: alert, normal mood/affect, oriented x 3 Skin: normal color, warm/dry Lymphatic: no adenopathy Assessment/Plan Assessment/Plan Admission Status: Inpatient Order (span 2 midnights) Reason for Inpatient Admission: Acute Appendicitis Assessment & Plan Acute Appendicitis - CT on 06/09 showed evidence of acute appendicitis - WBC of 12.2 - Laparoscopic Appendectomy with Dr. Nielsen scheduled for today. - IV Metronidazole and Cipro Clinical Quality Measures DVT/VTE Risk/Contraindication: Risk Factor Score Per Nursin RFS Level Per Nursing on Admit: 1=Low/No VTE PPX TOYIN WHITAKER MED STUDENT Jun 10, 2018 09:07
[2018-06-10] MEDS ORDERED: MIDAZOLAM 2 MG/2 ML (VERSED) VIAL ONE (09:15)
[2018-06-10] MEDS ORDERED: LIDOCAINE PF 2% 5 ML (XYLOCAINE) VIAL ONE (09:15)
[2018-06-10] MEDS ORDERED: ONDANSETRON 4 MG/2 ML (SDV) Z0FRAN ONE (09:15)
[2018-06-10] MEDS ORDERED: proPOfol 200 MG/20 ML (DIPRIVAN) VIAL IV ONE (09:15)
[2018-06-10] MEDS ORDERED: SEVOFLURANE (ULTANE) 15 ML INHAL SOLN ONE (09:15)
[2018-06-10] MEDS ORDERED: fentaNYL INJECTION 100 MCG/2 ML AMP ONE ×2 (09:15→11:27)
[2018-06-10] MEDS ORDERED: DEXAMETHASONE 10 MG/ML (DECADRON) 1 ML VIAL ONE (09:17)
[2018-06-10] MEDS ORDERED: ROCURONIUM 10 MG/ML 5 ML SYRINGE IV ONE (09:17)
--- NOTE | 2018-06-10 09:24 | Consultation (CHS) ---
HPI History of Present Illness: Patient is a 33 year old female who presented to [facility] with RLQ abdominal pain since Wednesday. She states that the pain is sharp and has increased in severity since presentation. She denies that the pain radiates anywhere. Admits to mild nausea but no vomiting. She denies diarrhea or constipation. She states that she has not had anything like this happen in past. She denies urinary frequency and dysuria. She is aware that her CT results showed inflammation of the appendix and a prepared for surgery. Source: patient Exam Limitations: no limitations Date seen by provider: Jun 10, 2018 Time Seen by Provider: 08:15 Attending Physician Korin Parr MD PCP Center/[facility] [place],[facility] Consult Date of Admission Jun 09, 2018 at 17:45 Home Medications Home Medications Reviewed patient Home Medication Reconciliation performed by pharmacy medication reconciliations plc technician and/or nursing. Patients Allergies have been reviewed. Allergies Coded Allergies: NKANo Known Allergies (Verified Allergy, Unknown, 05/11/06) MVL-Fxefuv-Ppqzwj Hx Patient Social History Alcohol Use: Denies Use Recreational Drug Use: No Smoking Status: Never a Smoker Recent Foreign Travel: No Contact w/other who traveled: No Recent Hopitalizations: Yes Recent Infectious Disease Expo: No Physical Abuse Screen: No Sexual Abuse: No Immunizations Up To Date Tetanus Booster (TDap): Less than 5yrs Date of Influenza Vaccine: Oct 26, 2013 Past Medical History None Family Medical History Significant Family History: No Pertinent Family Hx Family History: Diabetes mellitus Review of Systems ([facility]) Constitutional: No chills, No fever; malaise EENTM: no symptoms reported Respiratory: No cough, No short of breath Cardiovascular: No chest pain, No palpitations Gastrointestinal: abdominal pain (RLQ); No constipation, No diarrhea; nausea ( Mild); No vomiting Genitourinary: No dysuria, No frequency : No Musculoskeletal: no symptoms reported Skin: no symptoms reported Psychiatric/Neurological: Denies Headache Reviewed Test Results Reviewed Test Results Lab Laboratory Tests Test 06/09/18 18:15 06/10/18 07:59 06/10/18 10:23 Range/Units White Blood Count 12.2 H 4.3-11.0 10^3/uL Red Blood Count 4.15 L 4.35-5.85 10^6/uL Hemoglobin 11.1 L 11.5-16.0 G/DL Hematocrit 34 L 35-52 % Mean Corpuscular Volume 81 80-99 FL Mean Corpuscular Hemoglobin 27 25-34 PG Mean Corpuscular Hemoglobin Concent 33 32-36 G/DL Red Cell Distribution Width 14.3 10.0-14.5 % Platelet Count 297 130-400 10^3/uL Mean Platelet Volume 10.8 H 7.4-10.4 FL Neutrophils (%) (Auto) 76 H 42-75 % Lymphocytes (%) (Auto) 16 12-44 % Monocytes (%) (Auto) 6 0-12 % Eosinophils (%) (Auto) 2 0-10 % Basophils (%) (Auto) 0 0-10 % Neutrophils # (Auto) 9.2 H 1.8-7.8 X 10^3 Lymphocytes # (Auto) 2.0 1.0-4.0 X 10^3 Monocytes # (Auto) 0.7 0.0-1.0 X 10^3 Eosinophils # (Auto) 0.2 0.0-0.3 10^3/uL Basophils # (Auto) 0.0 0.0-0.1 10^3/uL Sodium Level 139 135-145 MMOL/L Potassium Level 4.0 3.6-5.0 MMOL/L Chloride Level 109 H 98-107 MMOL/L Carbon Dioxide Level 21 21-32 MMOL/L Anion Gap 9 5-14 MMOL/L Blood Urea Nitrogen 10 7-18 MG/DL Creatinine 0.65 0.60-1.30 MG/DL Estimat Glomerular Filtration Rate > 60 BUN/Creatinine Ratio 15 Glucose Level 106 H 70-105 MG/DL Calcium Level 9.4 8.5-10.1 MG/DL Urine Test NEGATIVE NEGATIVE Physical Exam-([facility]) Physical Exam Vital Signs VS - Last 72 Hours, by Label 06/09/18 06/09/18 06/09/18 06/10/18 17:45 19:45 20:14 00:00 Temp 97.7 97.8 99.5 Pulse 89 88 87 Resp 16 16 16 B/P (MAP) 108/66 (80) 104/59 (74) 103/59 (74) Pulse Ox 99 97 97 O2 Delivery Room Air Room Air Room Air Room Air 06/10/18 06/10/18 06/10/18 06/10/18 04:20 08:00 12:40 13:53 Temp 98.3 98.1 97.3 Pulse 90 71 74 Resp 16 22 24 B/P (MAP) 113/56 (75) 109/54 (72) 160/69 (99) Pulse Ox 97 93 95 O2 Delivery Room Air Room Air Room Air Room Air 06/10/18 15:30 Temp 98.4 Pulse 103 Resp 18 B/P (MAP) 115/77 (90) Pulse Ox 95 O2 Delivery Room Air Capillary Refill : Less Than 3 Seconds General Appearance: no apparent distress HEENT: PERRL/EOMI Neck: full range of motion, supple Respiratory: lungs clear, normal breath sounds, no respiratory distress, no accessory muscle use Cardiovascular: regular rate, rhythm, no edema, no gallop, no JVD, no murmur Gastrointestinal: normal bowel sounds, soft, no organomegaly, no pulsatile mass , tenderness (RLQ) Back: normal inspection Extremities: non-tender, normal inspection, no pedal edema, no calf tenderness Neurologic/Psychiatric: alert, normal mood/affect, oriented x 3 Skin: normal color, warm/dry Lymphatic: no adenopathy Assessment/Plan Assessment/Plan Admission Status: Inpatient Order (span 2 midnights) Reason for Inpatient Admission: Acute Appendicitis Assessment & Plan Acute Appendicitis - CT on 06/09 showed evidence of acute appendicitis - WBC of 12.2 - Laparoscopic Appendectomy with Dr. Nielsen scheduled for today. (1) Appendicitis, acute Status: Acute Assessment & Plan: - Surgery today with Gia, d/c after surgery Qualifiers: Qualified Codes: K35.80 - Unspecified acute appendicitis Clinical Quality Measures DVT/VTE Risk/Contraindication: Risk Factor Score Per Nursin RFS Level Per Nursing on Admit: 1=Low/No VTE PPX Copy Copies To 1: Arely SILVESTRE ANGELA M MED STUDENT Jun 10, 2018 09:24 KORIN PARR MD Jun 10, 2018 16:03
[2018-06-10] MEDS ORDERED: BUP/EPI 0.5% 1:200,000 (SENSORCAINE) 30 ML VIAL ONE (10:10)
[2018-06-10] MEDS ORDERED: ceFAZolin 1,000 MG (ANCEF) VIAL ONE (11:01)
[2018-06-10] MEDS ORDERED: GLYCOPYRROLATE 0.2 MG/ML (ROBINUL) 2 ML VIAL ONE (11:26)
[2018-06-10] MEDS ORDERED: NEOSTIGMINE 1 MG/ML 5 ML SYRINGE ONE (11:26)
[2018-06-10] MEDS ORDERED: KETOROLAC 30 MG/ML VIAL ONE (11:30)
[2018-06-10] MEDS ORDERED: morphine INJ 10 MG/ML 1ML (SYR OR VIAL) ONE (11:30)
--- NOTE | 2018-06-10 11:32 | Progress Note-Post Operative ---
Post-Operative Progess Note Surgeon (s)/Fish Farm Manager (s) Surgeon DEBBIE HAAS MD Fish Farm Manager: none Pre-Operative Diagnosis acute appendicitis Post-Operative Diagnosis same Procedure & Operative Findings Date of Procedure 06/10/18 Procedure Performed/Findings laparoscopic appendectomy Anesthesia Type GET Estimated Blood Loss Estimated blood loss (mL): minimal Specimens/Packing Specimens Removed appendix DEBBIE HAAS MD Jun 10, 2018 11:32 am
[2018-06-10] MEDS ORDERED: SULF1TAB35 PO (11:34)
[2018-06-10] MEDS ORDERED: HYDR-34 PO (11:34)
--- NOTE | 2018-06-10 11:36 | Discharge Inst-Surgical ---
D/C Lap Instructions-SAMINA New, Converted, or Re-Newed RX: RX on Chart Follow Up Appt in 2 weeks Activity as tolerated No driving for 24 hours No driving while on pain medications Incentive Spirometry use every 2 hours while awake Regular Diet Symptoms to Report: Fever over 101 degree F, Nausea/Vomiting Infection Signs and Symptoms to report: Increased redness, Foul odor of wound, Increased drainage Bathing instructions: May shower Operative Area Clean/Dry; Keep incision clean/dry If any problems/questions: Contact your physician or go to Emergency Room DEBBIE HAAS MD Jun 10, 2018 11:36 am
[2018-06-10] MEDS ORDERED: HYDROmorphone 1 MG/ML (DILAUDID) 1 ML SYRINGE ONE (11:53)
[2018-06-10] MEDS: HYDROmorphone 1 MG/ML (DILAUDID) 1 ML SYRINGE IV PRN ×2 (11:58→12:10)
[2018-06-10] MEDS ORDERED: fentaNYL INJECTION 100 MCG/2 ML AMP IVP PRN (12:00)
[2018-06-10] MEDS ORDERED: MEPERIDINE (DEMEROL) INJ 50 MG/ML IVP PRN (12:00)
[2018-06-10] MEDS ORDERED: ONDANSETRON 4 MG/2 ML (SDV) Z0FRAN IVP PRN (12:00)
[2018-06-10] MEDS ORDERED: KETOROLAC 30 MG/ML VIAL IVP ONE (12:30)
[2018-06-10 12:40] VITALS: BP 160/69
--- NOTE | 2018-06-10 15:16 | Anesthesia-General Post-Op ---
General Patient Condition Mental Status/LOC: Same as Preop Cardiovascular: Satisfactory Nausea/Vomiting: Absent Respiratory: Satisfactory Pain: Controlled Complications: Absent Post Op Complications Complications None Follow Up Care/Instructions Patient Instructions None needed. Anesthesia/Patient Condition Patient Condition Patient is doing well, no complaints, stable vital signs, no apparent adverse anesthesia problems. No complications reported per nursing. FIDE GARCIA CRNA Jun 10, 2018 15:16
[2018-06-10 15:30] VITALS: BP 115/77
[2018-06-10 15:58] VITALS: BP 115/77
--- NOTE | 2018-06-10 16:13 | OPERATIVE REPORT ---
DATE OF SERVICE: 06/10/2018 ATTENDING PRIMARY CARE PHYSICIAN: Dr. Parr. PREOPERATIVE DIAGNOSIS: Acute appendicitis. POSTOPERATIVE DIAGNOSIS: Acute appendicitis. PROCEDURE: Laparoscopic appendectomy. SURGEON: Debbie Haas MD ANESTHESIA: General endotracheal. ESTIMATED BLOOD LOSS: Minimal. FINDINGS: Inflamed appendix, no perforation. Uterus and ovaries appeared normal as well as small bowel. DISPOSITION: The patient tolerated the procedure well. INDICATIONS: The patient is a 33-year-old female who presented to [facility] with pain in the right lower abdominal quadrant for the past two days. She reports this was sharp in nature and increased in severity over time. She did not report any fever or chills; however, did report nausea, but no vomiting. She does not report ever having this type of symptoms before in the past. She does not report any episodes of diarrhea nor constipation. A CT scan was performed, which did show dilatation as well as inflammation of the appendix as well as an appendicolith consistent with an appendicitis. DESCRIPTION OF PROCEDURE: The patient was brought to the operating room, laid supine on the table. After adequate IV pain and sedating medications and general endotracheal intubation, the abdomen was prepped and draped in standard surgical fashion. A 0.5% Marcaine with epinephrine was used to anesthetize the overlying skin in the left upper abdominal quadrant. A small transverse skin incision made using a 15 blade. An 0 silk suture was applied to the medial aspect of the incision for retraction and a Veress needle inserted with a low opening pressure of 0 mmHg and the abdomen was then insufflated to 15 mmHg pressure. The Veress needle removed and a 5 mm Xcel trocar placed followed by a 5 mm 45 degree angle laparoscope visualizing the peritoneal cavity. A 4-quadrant abdominal exploration was performed. There was an inflamed appendix, which was walled off by the colon and peritoneal lining. There was no perforation identified. Uterus and ovaries appeared normal as did the small bowel. Under direct visualization, we then proceeded to place a supraumbilical 10 mm port after the skin and peritoneal lining were anesthetized using 0.5% Marcaine with epinephrine and a transverse skin incision made using a 15 blade. In a similar manner, a suprapubic 5 mm port was placed. The patient was then placed in Trendelenburg position as well as plane right side up, left side down. The appendix was then gently dissected out and intact with no perforation identified. The appendix was then retracted towards the anterior abdominal wall and a window was then created between the mesoappendix and the base of the appendix at the cecum using a [place] dissector. The appendix was then stapled and transected at its cecal base using a MARTIN 45 mm stapler with a 2.5 mm thickness load. The mesoappendix was then stapled and transected with the same stapler with a 2 mm thickness reload. Good hemostasis was observed. The appendix was removed through the 10 mm port site using EndoCatch bag. The 10 mm port site fascia and peritoneum were then closed under direct visualization using Gaudencio-Taylor device and an 0 Vicryl suture. The abdomen was desufflated and remaining ports removed. All skin incisions were closed using 4-0 Monocryl running subcuticular sutures. Wounds were then cleaned and covered with Dermabond. The patient tolerated the procedure well. We will admit her back to the floor, start a regular diet and when she is tolerating liquids, has good pain control with oral pain medications and ambulating well with this, we will discharge her home. Job ID: [id number] DocumentID: [id number] Dictated Date: 06/10/2018 11:41:50 Organ Builder Date: 06/10/2018 16:12:28 Dictated By: DEBBIE HAAS MD [facility]
--- NOTE | 2018-06-16 12:17 | Physician Query-Final Dx ---
TREY VALENZUELA 06/16/18 1217: Final Diagnosis Give Final Diagnosis Please give Final Diagnosis DEBBIE HAAS MD 06/16/18 1933: Final Diagnosis Give Final Diagnosis acute appendicitis TREY VALENZUELA Jun 16, 2018 12:17 DEBBIE HAAS MD Jun 16, 2018 19:33
== END 2018-06-10 15:58 | disposition home or self-care (01) ==
LOC: SDC 17:45 → 4TH 17:45 → UNDOADMIN 17:45 → SDC 06-10 15:58 → UNDODISIN 06-10 15:58
PROVIDERS: ATTEND Surgery
PROC: 0DTJ4ZZ Resection of Appendix, Percutaneous Endoscopic Approach (ICD-10-PCS; principal; 2018-06-10 10:41)
DX: K35.80 Unspecified acute appendicitis (principal); E11.9 Type 2 diabetes mellitus without complications; Z79.84 Long term (current) use of oral hypoglycemic drugs
CPT/HCPCS: 36415; 80048; 83036; 84703; 85025; 87081; 94664

== ENCOUNTER → 2018-06-09 | Outpatient (CLI) | payer OTHER ==
[~2018-06-09] MED LIST changes: +HYDR-34 PO; +METF500T5 PO; +NORG1TAB30; +SULF1TAB35 PO
--- NOTE | 2018-06-09 11:12 | Diagnostic Imaging Report ---
PROCEDURE: CT abdomen and pelvis with contrast, rule out appendicitis. TECHNIQUE: Multiple contiguous axial images were obtained through the abdomen and pelvis after the administration of intravenous contrast. INDICATION: Right lower quadrant pain. COMPARISON: Comparison is made with prior CT from 12/27/2013. FINDINGS: The lung bases are clear. No discrete liver mass is detected. The gallbladder is unremarkable. The pancreas and spleen are unremarkable. No adrenal mass is identified. The kidneys are unremarkable. Aorta is non-aneurysmal. There is moderate inflammatory changes identified in the right lower quadrant. The appendix is dilated and inflamed. There appears to be an appendicolith within the appendix. No abscess formation or bowel obstruction is seen. There is moderate stool throughout the colon. No free fluid is seen. The bladder and uterus are unremarkable. IMPRESSION: Findings consistent with acute appendicitis. There is an appendicolith located within a dilated appendix. No abscess formation or bowel obstruction is seen. Dictated by: Dictated on workstation # [id number]
== END ==
LOC: RAD 09:53
PROVIDERS: ATTEND Physician Assistant
DX: K38.1 Appendicular concretions (principal)
CPT/HCPCS: 74177

== ENCOUNTER 2020-05-30 11:17 | Observation (INO) | payer SELFPAY ==
[~2020-05-30] VITALS: Ht 154 cm; Wt 81.9 kg
[~2020-05-30 11:17] MED LIST changes: +HYDR-34 PO; +METF-397 PO; -METF500T5 PO; +SULF1TAB35 PO
--- NOTE | 2020-05-30 11:50 | NUR ---
COVID SWAB COMPLETED.
[2020-05-30] MEDS ORDERED: LACTATED RINGERS 1,000 ML IV ONE (11:53)
--- NOTE | 2020-05-30 11:55 | NUR ---
DR MARTINEZ GIVEN A UPDATE ON PT'S ARRIVAL AND CONDITION VIA PHONE.
[2020-05-30 12:04] LABS: BASOPHILS % (AUTO) 0 % (0-10); EOSINOPHILS % (AUTO) 0 % (0-10); HEMATOCRIT 35 % (35-52); HEMOGLOBIN 11.8 G/DL (11.5-16.0); LYMPHOCYTES # (AUTO) 0.9 X 10^3 (1.0-4.0); LYMPHOCYTES % (AUTO) 13 % (12-44); MEAN CORPUSCULAR HEMOGLOBIN 27 PG (25-34); MEAN CORPUSCULAR HGB CONC 34 G/DL (32-36); MEAN CORPUSCULAR VOLUME 80 FL (80-99); MEAN PLATELET VOLUME 10.4 FL (7.4-10.4); MONOCYTES # (AUTO) 0.2 X 10^3 (0.0-1.0); MONOCYTES % (AUTO) 3 % (0-12); NEUTROPHILS # (AUTO) 5.6 X 10^3 (1.8-7.8); NEUTROPHILS % (AUTO) 84 % (42-75); PLATELET COUNT 222 10^3/uL (130-400); RED CELL DISTRIBUTION WIDTH 14.6 % (10.0-14.5); WHITE BLOOD COUNT 6.6 10^3/uL (4.3-11.0)
[2020-05-30 12:04] LABS: BILIRUBIN,URINE NEGATIVE (NEGATIVE); CLARITY,URINE CLEAR; COLOR,URINE YELLOW; GLUCOSE, URINE (UA) NEGATIVE (NEGATIVE); KETONES,URINE NEGATIVE (NEGATIVE); LEUKOCYTE ESTERASE ,URINE NEGATIVE (NEGATIVE); NITRITE,URINE NEGATIVE (NEGATIVE); PROTEIN,URINE 2+ (NEGATIVE)
--- NOTE | 2020-05-30 12:08 | NUR ---
DR MARTINEZ HERE TO SEE PT.
[2020-05-30 12:11] LABS: BACTERIA,URINE NEGATIVE /HPF
[2020-05-30 12:15] LABS: ALBUMIN 4.1 GM/DL (3.2-4.5); CHLORIDE 106 MMOL/L (98-107); POTASSIUM 2.7 MMOL/L (3.6-5.0); SODIUM 138 MMOL/L (135-145)
[2020-05-30 12:16] LABS: CALCIUM 8.7 MG/DL (8.5-10.1)
[2020-05-30] MEDS ORDERED: KETOROLAC 30 MG/ML VIAL IVP STA (12:17)
[2020-05-30 12:18] LABS: GLUCOSE 207 MG/DL (70-105); TOTAL PROTEIN 7.8 GM/DL (6.4-8.2)
[2020-05-30 12:19] LABS: BILIRUBIN,TOTAL 0.4 MG/DL (0.1-1.0); CARBON DIOXIDE 18 MMOL/L (21-32)
[2020-05-30 12:21] LABS: ALKALINE PHOSPHATASE 93 U/L (40-136); CREATININE SERUM 0.77 MG/DL (0.60-1.30); GFR ESTIMATED > 60
[2020-05-30 12:22] LABS: BUN/CREATININE RATIO 5
--- NOTE | 2020-05-30 12:22 | ED General ---
General Chief Complaint: Respiratory Problems Stated Complaint: SOB, COUGH, FEVER Nursing Triage Note: ARRIVED VIA AMB TO COVID ER. LANGUAGE LINE USED. COMPLAINS OF FEVER, SOA, COUGH, AND BODY ACHES STARTING ON WEDNESDAY. PT ALSO STATES HER LUNGS HURT. STATES SHE HAS NOT BEEN AROUND ANYONE WITH COVID AND HAS NO CONNECTION TO [email or web address]. PT'S PULSE OX AFTER WALKING TO BED WAS 91% ON ROOM AIR AND INCREASED TO 95% AFTER LAYING IN THE BED A COUPLE OF MINUTES. Nursing Sepsis Screen: Possible Severe Sepsis Risk Source of Information: Patient Exam Limitations: No Limitations History of Present Illness Date Seen by Provider: May 30, 2020 Time Seen by Provider: 12:05 Initial Comments Here with report of fever, shortness of breath, cough, body aches and just overall not feeling well since Wednesday05/26/20. She did take a friend to the clinic last week on that was short of breath and had fever and likely has COVID-19. Denies other contacts. Denies nausea, vomiting or diarrhea. She did take DayQuil 2 hours prior to arrival and states her fever has been higher than it is now. Timing/Duration: 4-5 Days Severity: Moderate Associated Systoms: Chest Pain, Cough, Fever/Chills, Headaches, Malaise; No Nausea/Vomiting; Shortness of Air, Weakness Allergies and Home Medications Allergies Coded Allergies: NKANo Known Allergies (Verified Allergy, Unknown, 05/11/06) Home Medications Hydrocodone Bit/Acetaminophen 1 Ea Tablet, 1-2 EACH PO Q6H Prescribed by: DEBBIE HAAS on 06/10/18 1134 Metformin HCl 500 Mg Tablet, 500 MG PO BID WITH MEALS, (Reported) Sulfamethoxazole/Trimethoprim 1 Each Tablet, 1 EACH PO BID Prescribed by: DEBBIE HAAS on 06/10/18 1134 Patient Home Medication List Home Medication List Reviewed: Yes Review of Systems Review of Systems Constitutional: see HPI, chills, fever, malaise EENTM: nose congestion; No throat pain Respiratory: cough, short of breath; No wheezing Cardiovascular: chest pain (Bilateral lower ribs); No palpitations Gastrointestinal: No abdominal pain, No nausea, No vomiting Genitourinary: no symptoms reported Musculoskeletal: muscle pain; No muscle weakness Skin: no symptoms reported All Other Systems Reviewed Negative Unless Noted: Yes Past Meoxkvm-Tykdwp-Ifmfmk Hx Past Med/Social Hx: Reviewed Nursing Past Med/Soc Hx Patient Social History Alcohol Use: Denies Use Recreational Drug Use: No Smoking Status: Never a Smoker Recent Foreign Travel: No Contact w/Someone Who Travel: No Recent Infectious Disease Expo: No Recent Hopitalizations: Yes Immunizations Up To Date Tetanus Booster (TDap): Less than 5yrs Date of Influenza Vaccine: Oct 26, 2013 Past Medical History Surgeries: Yes Appendectomy Respiratory: No Cardiac: No Neurological: No Reproductive Disorders: No Female Reproductive Disorders: Denies Sexually Transmitted Disease: No HIV/AIDS: No Genitourinary: Yes Kidney Infection, Kidney Stones Gastrointestinal: No Musculoskeletal: No Endocrine: Yes Diabetes, Non-Insulin dep Loss of Vision: Denies Hearing Impairment: Denies Cancer: No Psychosocial: No Integumentary: No Blood Disorders: Yes (ANEMIA WITH Previous ) Adverse Reaction/Blood Tranf: No Family Medical History Reviewed Nursing Family Hx Diabetes mellitus No Pertinent Family Hx Physical Exam-Suspected Sepsis Physical Exam Vital Signs Vital Signs - First Documented 05/30/20 11:30 Temp 37.8 Pulse 111 Resp 16 B/P (MAP) 134/84 (101) Pulse Ox 95 O2 Delivery Room Air Capillary Refill : Less Than 3 Seconds Blood Pressure Mean: 101 Height, Weight, BMI Height: 5'1.00" Weight: 180lbs. 0.0oz. 81.452901oi; 35.00 BMI Method:Stated General Appearance: No Apparent Distress, WD/WN HEENT: PERRL/EOMI, TMs Normal, Pharyngeal Erythema (Mild) Neck: Non Tender, Supple Respiratory: Lungs Clear, Normal Breath Sounds Cardiovascular: No Murmur, Tachycardia Gastrointestinal: Non Tender, Soft Back: Normal Inspection, No CVA Tenderness, No Vertebral Tenderness Extremity: Normal Range of Motion, Non Tender Neurologic/Psychiatric: Alert, Oriented x3 Skin: normal color, warm/dry Focused Exam Lactate Level 05/30/20 11:40: Lactic Acid Level 1.34 Lactic Acid Level Laboratory Tests Test 05/30/20 11:40 Lactic Acid Level 1.34 MMOL/L (0.50-2.00) Progress/Results/Core Measures Suspected Sepsis Recent Fever Within 48 Hours: Yes Infection Criteria Present: Suspected New Infection New/Unexplained Altered Menta: No Sepsis Screen: Possible Severe Sepsis Risk SIRS Temperature: Pulse: 111 Respiratory Rate: 16 Laboratory Tests 05/30/20 11:40: White Blood Count 6.6 Blood Pressure 134 /84 Mean: 101 05/30/20 11:40: Lactic Acid Level 1.34 Laboratory Tests 05/30/20 11:40: Creatinine 0.77, Platelet Count 222, Total Bilirubin 0.4 Results/Orders Lab Results Laboratory Tests Test 05/30/20 11:40 05/30/20 11:50 Range/Units White Blood Count 6.6 4.3-11.0 10^3/uL Red Blood Count 4.34 L 4.35-5.85 10^6/uL Hemoglobin 11.8 11.5-16.0 G/DL Hematocrit 35 35-52 % Mean Corpuscular Volume 80 80-99 FL Mean Corpuscular Hemoglobin 27 25-34 PG Mean Corpuscular Hemoglobin Concent 34 32-36 G/DL Red Cell Distribution Width 14.6 H 10.0-14.5 % Platelet Count 222 130-400 10^3/uL Mean Platelet Volume 10.4 7.4-10.4 FL Neutrophils (%) (Auto) 84 H 42-75 % Lymphocytes (%) (Auto) 13 12-44 % Monocytes (%) (Auto) 3 0-12 % Eosinophils (%) (Auto) 0 0-10 % Basophils (%) (Auto) 0 0-10 % Neutrophils # (Auto) 5.6 1.8-7.8 X 10^3 Lymphocytes # (Auto) 0.9 L 1.0-4.0 X 10^3 Monocytes # (Auto) 0.2 0.0-1.0 X 10^3 Eosinophils # (Auto) 0.0 0.0-0.3 10^3/uL Basophils # (Auto) 0.0 0.0-0.1 10^3/uL Erythrocyte Sedimentation Rate 88 H 0-20 MM/HR D-Dimer < 0.27 0.00-0.49 UG/ML Sodium Level 138 135-145 MMOL/L Potassium Level 2.7 L 3.6-5.0 MMOL/L Chloride Level 106 98-107 MMOL/L Carbon Dioxide Level 18 L 21-32 MMOL/L Anion Gap 14 5-14 MMOL/L Blood Urea Nitrogen 4 L 7-18 MG/DL Creatinine 0.77 0.60-1.30 MG/DL Estimat Glomerular Filtration Rate > 60 BUN/Creatinine Ratio 5 Glucose Level 207 H 70-105 MG/DL Lactic Acid Level 1.34 0.50-2.00 MMOL/L Calcium Level 8.7 8.5-10.1 MG/DL Corrected Calcium 8.6 8.5-10.1 MG/DL Total Bilirubin 0.4 0.1-1.0 MG/DL Aspartate Amino Transf (AST/SGOT) 29 5-34 U/L Alanine Aminotransferase (ALT/SGPT) 26 0-55 U/L Alkaline Phosphatase 93 40-136 U/L Lactate Dehydrogenase 304 H 125-220 U/L C-Reactive Protein High Sensitivity 11.20 H 0.00-0.50 MG/DL Total Protein 7.8 6.4-8.2 GM/DL Albumin 4.1 3.2-4.5 GM/DL Procalcitonin 0.06 <0.10 NG/ML Urine Color YELLOW Urine Clarity CLEAR Urine pH 6.0 5-9 Urine Specific [place] 1.020 1.016-1.022 Urine Protein 2+ H NEGATIVE Urine Glucose (UA) NEGATIVE NEGATIVE Urine Ketones NEGATIVE NEGATIVE Urine Nitrite NEGATIVE NEGATIVE Urine Bilirubin NEGATIVE NEGATIVE Urine Urobilinogen 2.0 < = 1.0 MG/DL Urine Leukocyte Esterase NEGATIVE NEGATIVE Urine RBC (Auto) NEGATIVE NEGATIVE Urine RBC NONE /HPF Urine WBC 2-5 /HPF Urine Squamous Epithelial Cells 5-10 /HPF Urine Crystals NONE /LPF Urine Bacteria NEGATIVE /HPF Urine Casts NONE /LPF Urine Mucus NEGATIVE /LPF Urine Culture Indicated NO My Orders Orders - CHARLY MARTINEZ MD Cbc With Automated Diff (05/30/20 11:53) Comprehensive Metabolic Panel (05/30/20 11:53) Hs C Reactive Protein (05/30/20 11:53) Lactic Acid Analyzer (05/30/20 11:53) Blood Culture (05/30/20 11:53) Chest 1 View, Ap/Pa Only (05/30/20 11:53) Fibrin Degradation Products (05/30/20 11:53) LDH (05/30/20 11:53) Coronavirus Sars-Cov-2 So 2018 (05/30/20 11:53) Ed Iv/Invasive Line Start (05/30/20 11:53) Lactated Ringers (Lr 1000 Ml Iv Solution (05/30/20 11:53) Procalcitonin (Pct) (05/30/20 11:55) Erythrocyte Sedimentation Rate (05/30/20 11:55) Ua Culture If Indicated (05/30/20 11:55) Ketorolac Injection (Toradol Injection) (05/30/20 12:17) Azithromycin Injection (Zithromax Inject (05/30/20 12:35) Ceftriaxone For Iv Use (Rocephin For I (05/30/20 12:35) Potassium Chloride (Tablet) (K Dur Table (05/30/20 12:45) Medications Given in ED Current Medications Medications Dose Ordered Sig/Kiera Route Start Time Stop Time Status Last Admin Dose Admin Lactated Ringer's 1,000 ml @ 0 mls/hr Q0M ONCE IV 05/30/20 11:53 05/30/20 11:57 DC 05/30/20 12:05 1,000 MLS/HR Vital Signs/I&O 05/30/20 11:30 Temp 37.8 Pulse 111 Resp 16 B/P (MAP) 134/84 (101) Pulse Ox 95 O2 Delivery Room Air Capillary Refill : Less Than 3 Seconds Blood Pressure Mean: 101 Progress Note : Progress Note Seen and evaluated. Patient high risk for COVID-19 infection. IV, labs, UA, chest x-ray, COVID screening swab ordered. LR 1 L bolus and Toradol 30 mg IV ordered. Monitor patient. Bedside urine testing negative. 1137: Findings are suggesting COVID-19 infection with bilateral pneumonia. Given that the patient has low O2 sats with any movement, admission for observation to ensure that there is no worsening is appropriate and also we will be unable to manage with oxygen if needed. Given the infiltrates we will go ahead and initiate antibiotics with Rocephin 1 g IV now and Zithromax 500 mg IV now and continue the community acquired pneumonia protocol. Patient was informed to tell family of the concerns for COVID-19 and that they need to quarantine now. Admit, observation status. Case was discussed with Dr. Parr who agrees and requests observation admission. Patient agrees and appreciates admission. Potassium noted to be 2.7. KCl 40 mEq by mouth given. Diagnostic Imaging Diagonstic Imaging: Xray Plain Films/CT/US/NM/MRI: chest Comments Bilateral pulmonary infiltrates concerning for COVID-19 infection [facility] [id number] PT STATUS: REG ER : 1985 PHYSICIAN: CHARLY MARTINEZ MD ADMIT DATE: 05/30/20/ER Draft Date of Exam:05/30/20 CHEST 1 VIEW, AP/PA ONLY INDICATION: Respiratory distress. Portable chest 12:27 AM FINDINGS: There are some scattered patchy alveolar infiltrates in the lungs. Heart size and pulmonary vascularity are normal. There are no effusions or pneumothoraces. IMPRESSION: Patchy alveolar infiltrates suspicious for pneumonia. Dictated on workstation # [id number] Dict: 05/30/20 1243 Trans: 05/30/20 1246 [id number] Interpreted by: CHARLY LAMA MD Electronically signed by: Reviewed: Reviewed by Me Departure Communication (Admissions) Time/Spoke to Admitting Phy: 12:37 Impression Primary Impression: Bilateral pneumonia Qualified Codes: J18.1 - Lobar pneumonia, unspecified organism Additional Impressions: COVID-19 evaluation Hypokalemia Disposition: ADMITTED INPATIENT Condition: Stable Admissions Decision to Admit Reason: Admit from ER (General) Decision to Admit/Date: May 30, 2020 Time/Decision to Admit Time: 12:37 Departure-Patient Inst. Referrals: [facility] (PCP/Family) Primary Care Physician CHARLY MARTINEZ MD May 30, 2020 12:22
[2020-05-30 12:24] LABS: ALANINE AMINOTRANSFERASE 26 U/L (0-55)
--- NOTE | 2020-05-30 12:28 | NUR ---
NUTRITIONIST CONTACTED FOR A BED ON 4TH A PUI.
[2020-05-30 12:29] LABS: ERYTHROCYTE SEDIMENTATION RATE 88 MM/HR (0-20)
[2020-05-30] MEDS ORDERED: cefTRIAXone FOR IV USE 1,000 MG in WATER (STERILE) FOR INJECTION 10 ML IV STA (12:35)
[2020-05-30] MEDS ORDERED: AZITHROMYCIN INJECTION 500 MG in NS (IVPB) 250 ML IV STA (12:35)
[2020-05-30] MEDS ORDERED: KCL 20 MEQ TAB (K-DUR) PO ONE (12:45)
--- NOTE | 2020-05-30 12:45 | NUR ---
ATTEMPT TO CALL REPORT ET NURSE STATES SHE WILL CALL ME BACK.
--- NOTE | 2020-05-30 12:46 | Diagnostic Imaging Report ---
INDICATION: Respiratory distress. Portable chest 12:27 AM FINDINGS: There are some scattered patchy alveolar infiltrates in the lungs. Heart size and pulmonary vascularity are normal. There are no effusions or pneumothoraces. IMPRESSION: Patchy alveolar infiltrates suspicious for pneumonia. Dictated by: Dictated on workstation # [id number]
--- NOTE | 2020-05-30 13:03 | NUR ---
FAMILY/FRIEND CALLED FOR UPDATE ET PHONE GIVEN TO THE PT.
--- OUTSIDE RECORDS SUMMARY | 2020-05-30 13:09 | XMS REPORT ---
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 Name Role Phone YASMINBRENDASOTO Unavailable PROBLEMS Type Condition ICD9-CM Code [id number] Code Onset Dates Condition S tatus SNOMED Code Problem Obesity (BMI 30.0-34.9) E66.9 Active [id number] Problem Abnormal CBC measurement R79.89 Activ e 194341817 Problem Other obesity due to excess calories E66.09 Active 751724692 Problem Primary insomnia F51.01 Active 397 2004 Problem Iron deficiency anemia secondary to inadequate d ietary iron intake D50.8 Active 065640128 Problem Migraine without aura and without status migrain osus, not intractable G43.009 Active 155379768 Problem Chronic fatigue R53.82 Active 8422 9001 Problem Body mass index (BMI) of 34.0-34.9 in adult Z68.34 Active 081875488 ALLERGIES No Known Allergies ENCOUNTERS Encounter Location Date Diagnosis [place] [address] [address] [place] [id number] [address] [place] [id number] 11 Jul, 2018 Pre-diabetes R73.03 ; Iron d eficiency anemia secondary to inadequate dietary iron intake D50.8 ; Chronic fatigue R53.82 and Obesity (BMI 30.0-34.9) E66.9 [facility] [address] [facility] [id number] [address] [place] [address] 06 Jul, 2018 Encounter for Depo-Provera c ontraception Z30.42 [facility] [address] [place] [id number] [address] [place] [phone] May, [facility] [address] [facility] [id number] [address] [place] [phone] May, Right lower quadrant abdomin al pain R10.31 [place] [address] [address] [place] [id number] [address] [place] [phone] 31 Mar, 2018 Iron deficiency anemia secon singh to inadequate dietary iron intake D50.8 ; Migraine without aura and without status migrainosus, not intractable G43.009 ; Other obesity due to excess calories E66.09 ; Body mass index (BMI) of 34.0-34.9 in adult Z68.34 ; Elevated fasting glucose R73.01 ; Primary insomnia F51.01 and Chronic fatigue R53.82 [place] [address] [address] 22 Mar, 2018 Encounter for Depo-Provera c ontraception Z30.[address] [address] 20 Dec, 2017 Encounter for well woman exa m Z01.419 ; Encounter for Depo-Provera contraception Z30.42 ; Obesity (BMI 30.0-34.9) E66.9 and Hyperinsulinemia E16.1 [place] [address] [address] 09 Nov, 2017 Hyper[address]emia E16.[address] [address] 08 Nov, 2017 Hyperinsulinemia E16.[address] [address] 05 Nov, 2017 Hyperinsulinemia E16.1 ; Tomas katie without aura and without status migrainosus, not intractable G43.009 ; Obesity (BMI 30.0-34.9) E66.9 and Iron deficiency anemia secondary to inadequate dietary iron intake D50.[address] [address] Oct, Hyperinsulinemia E16.1 ; Tomas katie without aura and without status migrainosus, not intractable G43.009 ; Obesity (BMI 30.0-34.9) E66.9 ; Iron deficiency anemia secondary to inadequate dietary iron intake D50.8 ; Oral contraceptive pill surveillance Z30.41 and Dysuria R30.0 [place] [address] [address] 15 Oct, 2017 Abnormal CBC R79.89 [facility] [address] [address] Sep, Tachycardia R00.0 [place] [address] [address] Sep, [place] [address] [address] 14 Jul, 2017 Hyperinsulinemia E16.1 ; Obe sity (BMI 30.0-34.9) E66.9 and Migraine without aura and without status migrainosus, not intractable G43.009 [place] [address] [address] Jun, [facility] [address] [address] Jun, Acute non-recurrent maxillar y sinusitis J01.00 [facility] [id number] [place] [phone] Apr, Dental examination Z01.20 [facility] [address] [place] [id number] [place] [address] [phone] March, Dental examination Z01.20 [facility] [address] [address] 03 Dec, 2016 Encounter for well woman exa m with routine gynecological exam Z01.419 ; Encounter for screening for malignant neoplasm of cervix Z12.4 ; Encounter for screening breast examination Z12.39 ; Screen for STD (sexually transmitted disease) Z11.3 and Encounter for prescription of oral contraceptives Z30.011 [facility] [address] [place] [phone] Nov, Dental examination Z01.20 [facility] [address] [address] Oct, Abnormal CBC R79.89 [facility] [address] [facility] [id number] [address] [place] [address] 12 Oct, 2016 Routine health maintenance Z 00.00 ; History of renal calculi Z87.442 ; Obesity (BMI 30.0-34.9) E66.9 and Family history of diabetes mellitus Z83.3 [facility] [address] [address] 08 Oct, 2016 Routine health maintenance Z 00.00 ; History of renal calculi Z87.442 ; Obesity (BMI 30.0-34.9) E66.9 and Family history of diabetes mellitus Z83.3 [facility] [address] [address] 28 Jul, 2016 Irritable bowel syndrome wit h diarrhea K58.0 [facility] [address] [id number] Jun, Dental examination Z01.20 [facility] [address] [place] [phone] Apr, Dental caries K02.9 [facility] [address] [id number] March, Dental examination Z01.20 IMMUNIZATIONS No Known Immunizations SOCIAL HISTORY Never Assessed REASON FOR VISIT f/u on anemia --STERLING Adler PLAN OF CARE Activity Details Follow Up 6 Months, prn Reason:CHM/Pre diabetes w/Mary Grace VITAL SIGNS Height 61 in 2018-08-02 Weight 180.6 lbs 2018-08-02 Temperature 98.1 degrees Fahrenheit 2018-08-02 Heart Rate 72 bpm 2018-08-02 Respiratory Rate 18 2018-08-02 BMI 34.12 kg/m2 2018-08-02 Blood pressure systolic 122 mmHg 2018-08-02 Blood pressure diastolic 66 mmHg 2018-08-02 MEDICATIONS Medication Instructions Dosage Frequency Start Date End Date Duration S tatus Metformin HCl 500 mg Orally 2 times a day 1 tablet 12h 19 Oct, 2016 Active RESULTS No Results PROCEDURES Procedure Date Ordered Result Body Site GLYCATED HEMOGLOBIN TEST Aug 02, 2018 COMPLETE CBC W/AUTO DIFF WBC Aug 02, 2018 ASSAY OF VITAMIN D Aug 02, 2018 INSTRUCTIONS MEDICATIONS ADMINISTERED No Known Medications MEDICAL (GENERAL) HISTORY Type Description Date Medical History ERCP Medical History Renal calculi Medical History Migraines Surgical History kidney stone removed Hospitalization History kidney stones Hospitalization History ER visit- itching all over b harvinder, blurry vision, SOB dxd migraine 11/2017
--- OUTSIDE RECORDS SUMMARY | 2020-05-30 13:09 | XMS REPORT ---
Author Author Rakel HOFFMAN Organization [facility] Address [address] [place] [address] Care Team Providers Care Department Chairperson Name Role Phone YASMINBRENDASOTO Unavailable PROBLEMS Type Condition ICD9-CM Code [id number] Code Onset Dates Condition S tatus SNOMED Code Problem Obesity (BMI 30.0-34.9) E66.9 Active [id number] Problem Abnormal CBC measurement R79.89 Activ e 774875387 Problem Other obesity due to excess calories E66.09 Active 554563854 Problem Primary insomnia F51.01 Active 397 2004 Problem Iron deficiency anemia secondary to inadequate d ietary iron intake D50.8 Active 698438794 Problem Migraine without aura and without status migrain osus, not intractable G43.009 Active 699393452 Problem Chronic fatigue R53.82 Active 8422 9001 Problem Body mass index (BMI) of 34.0-34.9 in adult Z68.34 Active 016279670 ALLERGIES No Information ENCOUNTERS Encounter Location Date Diagnosis [place] [address] [address] [place] [id number] [address] [place] [address] 11 Jul, 2018 Pre-diabetes R73.03 ; Iron d eficiency anemia secondary to inadequate dietary iron intake D50.8 ; Chronic fatigue R53.82 and Obesity (BMI 30.0-34.9) E66.9 [facility] [address] [facility] [id number] [address] [place] [id number] 06 Jul, 2018 Encounter for Depo-Provera c ontraception Z30.42 [facility] [address] [facility] [id number] [address] [place] [phone] May, [place] [address] [facility] [id number] [address] [place] [address] May, Right lower quadrant abdomin al pain R10.31 [place] [address] [address] [place] [id number] [address] [place] [address] 31 Mar, 2018 Iron deficiency anemia secon isngh to inadequate dietary iron intake D50.8 ; Migraine without aura and without status migrainosus, not intractable G43.009 ; Other obesity due to excess calories E66.09 ; Body mass index (BMI) of 34.0-34.9 in adult Z68.34 ; Elevated fasting glucose R73.01 ; Primary insomnia F51.01 and Chronic fatigue R53.82 [place] [address] [address] 22 Mar, 2018 Encounter for Depo-Provera c ontraception Z30.[address] [address] 20 Dec, 2017 Encounter for well woman exa m Z01.419 ; Encounter for Depo-Provera contraception Z30.42 ; Obesity (BMI 30.0-34.9) E66.9 and Hyperinsulinemia E16.1 [place] [address] [address] 09 Nov, 2017 Hyperinsulinemia E16.[address] [address] 08 Nov, 2017 Hyperinsulinemia E16.1 [place] [address] [address] 05 Nov, 2017 Hyperinsulinemia E16.1 ; Tomas katie without aura and without status migrainosus, not intractable G43.009 ; Obesity (BMI 30.0-34.9) E66.9 and Iron deficiency anemia secondary to inadequate dietary iron intake D50.[address] [address] Oct, Hyperinsulinemia E16.1 ; Tomas katie without aura and without status migrainosus, not intractable G43.009 ; Obesity (BMI 30.0-34.9) E66.9 ; Iron deficiency anemia secondary to inadequate dietary iron intake D50.8 ; Oral contraceptive pill surveillance Z30.41 and Dysuria R30.0 [facility] [address] [address] Oct, Abnormal CBC R79.89 [facility] [address] [address] Sep, Tachycardia R00.0 [facility] [address] [address] Sep, [place] [address] [address] 14 Jul, 2017 Hyperinsulinemia E16.1 ; Obe sity (BMI 30.0-34.9) E66.9 and Migraine without aura and without status migrainosus, not intractable G43.009 [place] [address] [address] Jun, [facility] [address] [address] Jun, Acute non-recurrent maxillar y sinusitis J01.00 [facility] [address] [id number] Apr, Dental examination Z01.20 [facility] [address] [place] [id number] [place] [phone] March, Dental examination Z01.20 [facility] [address] [address] 03 Dec, 2016 Encounter for well woman exa m with routine gynecological exam Z01.419 ; Encounter for screening for malignant neoplasm of cervix Z12.4 ; Encounter for screening breast examination Z12.39 ; Screen for STD (sexually transmitted disease) Z11.3 and Encounter for prescription of oral contraceptives Z30.011 [facility] [address] [place] [id number] [place] [address] [phone] Nov, Dental examination Z01.20 [facility] [address] [address] Oct, Abnormal CBC R79.89 [facility] [address] [facility] [id number] [address] [place] [address] 12 Oct, 2016 Routine health maintenance Z 00.00 ; History of renal calculi Z87.442 ; Obesity (BMI 30.0-34.9) E66.9 and Family history of diabetes mellitus Z83.3 [facility] [address] [facility] [id number] [address] [place] [address] 08 Oct, 2016 Routine health maintenance Z 00.00 ; History of renal calculi Z87.442 ; Obesity (BMI 30.0-34.9) E66.9 and Family history of diabetes mellitus Z83.3 [facility] [address] [place] [id number] [address] [place] [id number] 28 Jul, 2016 Irritable bowel syndrome wit h diarrhea K58.0 [facility] [address] [place] [address] [id number] Jun, Dental examination Z01.20 [facility] [address] [place] [id number] [place] [address] [phone] Apr, Dental caries K02.9 [facility] [address] [id number] March, Dental examination Z01.20 IMMUNIZATIONS Vaccine Route Administration Date Status DEPO PROVERA (150 MG/ML) IM Intramuscular Jul 28, 2018 Admini stered SOCIAL HISTORY Never Assessed REASON FOR VISIT Depo Provera injection- Saul Zepeda RN PLAN OF CARE VITAL SIGNS MEDICATIONS No Known Medications RESULTS Name Result Date Reference Range TEST, URINE (IN HOUSE) RESULTS negative Lot # [id number] Control + Exp date 01/2020 PROCEDURES Procedure Date Ordered Result Body Site URINE TEST Jul 28, 2018 DEPO PROVERA (150 MG/ML) Jul 28, 2018 THER/PROPH/DIAG INJ, SC/IM Jul 28, 2018 INSTRUCTIONS MEDICATIONS ADMINISTERED No Known Medications MEDICAL (GENERAL) HISTORY Type Description Date Medical History ERCP Medical History Renal calculi Medical History Migraines Surgical History kidney stone removed Hospitalization History kidney stones Hospitalization History ER visit- itching all over b harvinder, blurry vision, SOB dxd migraine 11/2017
--- OUTSIDE RECORDS SUMMARY | 2020-05-30 13:09 | XMS REPORT ---
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 Name Role Phone GOOD WINN Unavailable PROBLEMS Type Condition ICD9-CM Code ONA52-ZA Code Onset Dates Condition S tatus SNOMED Code Problem Obesity (BMI 30.0-34.9) E66.9 Active [id number] Problem Abnormal CBC measurement R79.89 Activ e 603262395 Problem Other obesity due to excess calories E66.09 Active 688501867 Problem Primary insomnia F51.01 Active 397 2004 Problem Iron deficiency anemia secondary to inadequate d ietary iron intake D50.8 Active 952375814 Problem Migraine without aura and without status migrain osus, not intractable G43.009 Active 417434732 Problem Chronic fatigue R53.82 Active 8422 9001 Problem Body mass index (BMI) of 34.0-34.9 in adult Z68.34 Active 278904705 ALLERGIES No Information ENCOUNTERS Encounter Location Date Diagnosis [facility] [address] [place] [id number] [address] [place] [phone] Sep, Encounter for Depo-Provera c ontraception Z30.42 [facility] [address] [place] [id number] [address] [place] [address] Jul, Pre-diabetes R73.03 ; Iron d eficiency anemia secondary to inadequate dietary iron intake D50.8 ; Chronic fatigue R53.82 and Obesity (BMI 30.0-34.9) E66.9 [facility] [address] [place] [id number] [address] [place] [address] Jul, Encounter for Depo-Provera c ontraception Z30.42 [facility] [address] [place] [id number] [address] [place] [phone] May, [place] [address] [address] [place] [id number] [address] [place] [address] May, Right lower quadrant abdomin al pain R10.31 [place] [address] [address] [place] [id number] [address] [place] [address] March, Iron deficiency anemia secon singh to inadequate dietary iron intake D50.8 ; Migraine without aura and without status migrainosus, not intractable G43.009 ; Other obesity due to excess calories E66.09 ; Body mass index (BMI) of 34.0-34.9 in adult Z68.34 ; Elevated fasting glucose R73.01 ; Primary insomnia F51.01 and Chronic fatigue R53.82 [place] [address] [address] March, Encounter for Depo-Provera c ontraception Z30.[address] [address] 20 Dec, 2017 Encounter for well woman exa m Z01.419 ; Encounter for Depo-Provera contraception Z30.42 ; Obesity (BMI 30.0-34.9) E66.9 and Hyperinsulinemia E16.1 [place] [address] [address] Nov, Hyperinsulinemia E16.1 [place] [address] [address] Nov, Hyperinsulinemia E16.1 [place] [address] [address] Nov, Hyperinsulinemia E16.1 ; Tomas katie without aura and without status migrainosus, not intractable G43.009 ; Obesity (BMI 30.0-34.9) E66.9 and Iron deficiency anemia secondary to inadequate dietary iron intake D50.8 [place] [address] [place] [id number] [address] [place] [address] Oct, Hyperinsulinemia E16.1 ; Tomas katie without aura and without status migrainosus, not intractable G43.009 ; Obesity (BMI 30.0-34.9) E66.9 ; Iron deficiency anemia secondary to inadequate dietary iron intake D50.8 ; Oral contraceptive pill surveillance Z30.41 and Dysuria R30.0 [facility] [address] [address] 15 Oct, 2017 Abnormal CBC R79.89 [facility] IN [facility] [address] [address] 17 Sep, 2017 Tachycardia R00.0 [facility] [address] [address] 17 Sep, 2017 [facility] [address] [address] 14 Jul, 2017 Hyperinsulinemia E16.1 ; Obe sity (BMI 30.0-34.9) E66.9 and Migraine without aura and without status migrainosus, not intractable G43.009 [facility] [address] [address] 15 Jun, 2017 [facility] IN [facility] [address] [address] Jun, Acute non-recurrent maxillar y sinusitis J01.00 [facility] [address] [place] [id number] [address] [place] [address] [id number] Apr, Dental examination Z01.20 [facility] [address] [place] [phone] March, Dental examination Z01.20 [facility] [address] [place] [id number] [address] [place] [address] 03 Dec, 2016 Encounter for well woman exa m with routine gynecological exam Z01.419 ; Encounter for screening for malignant neoplasm of cervix Z12.4 ; Encounter for screening breast examination Z12.39 ; Screen for STD (sexually transmitted disease) Z11.3 and Encounter for prescription of oral contraceptives Z30.011 [facility] [address] [place] [id number] [address] [place] [address] [phone] Nov, Dental examination Z01.20 [facility] [address] [facility] [id number] [address] [place] [phone] Oct, Abnormal CBC R79.89 [facility] [address] [facility] [id number] [address] [place] [address] 12 Oct, 2016 Routine health maintenance Z 00.00 ; History of renal calculi Z87.442 ; Obesity (BMI 30.0-34.9) E66.9 and Family history of diabetes mellitus Z83.3 [facility] [address] [facility] [id number] [address] [place] [address] 08 Oct, 2016 Routine health maintenance Z 00.00 ; History of renal calculi Z87.442 ; Obesity (BMI 30.0-34.9) E66.9 and Family history of diabetes mellitus Z83.3 [facility] [address] [facility] [id number] [address] [place] [phone] 28 Jul, 2016 Irritable bowel syndrome wit h diarrhea K58.0 [facility] [address] [facility] [id number] [address] [place] [address] [phone] Jun, Dental examination Z01.20 [facility] [address] [facility] [id number] [address] [place] [address] [phone] Apr, Dental caries K02.9 [facility] [address] [facility] [id number] [address] [place] [address] [phone] March, Dental examination Z01.20 IMMUNIZATIONS Vaccine Route Administration Date Status DEPO PROVERA (150 MG/ML) IM Intramuscular Oct 21, 2018 Admini stered SOCIAL HISTORY Never Assessed REASON FOR VISIT Depo Provera injection-Amelie KATZ PLAN OF CARE Activity Details Follow Up 3 Months Reason: VITAL SIGNS MEDICATIONS Unknown Medications RESULTS Name Result Date Reference Range TEST, URINE (IN HOUSE) RESULTS negative Lot # [id number] Control pos Exp date 02/2020 PROCEDURES Procedure Date Ordered Result Body Site URINE TEST Oct 21, 2018 DEPO PROVERA (150 MG/ML) Oct 21, 2018 THER/PROPH/DIAG INJ, SC/IM Oct 21, 2018 INSTRUCTIONS MEDICATIONS ADMINISTERED No Known Medications MEDICAL (GENERAL) HISTORY Type Description Date Medical History ERCP Medical History Renal calculi Medical History Migraines Surgical History kidney stone removed Hospitalization History kidney stones Hospitalization History ER visit- itching all over b harvinder, blurry vision, SOB dxd migraine 11/2017
--- OUTSIDE RECORDS SUMMARY | 2020-05-30 13:09 | XMS REPORT ---
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 Name Role Phone YASMINBRENDASOTO Unavailable PROBLEMS Type Condition ICD9-CM Code TIS59-DL Code Onset Dates Condition S tatus SNOMED Code Problem Obesity (BMI 30.0-34.9) E66.9 Active 184246986639586 Problem Abnormal CBC measurement R79.89 Activ e 039161146 Problem Other obesity due to excess calories E66.09 Active 380842350 Problem Primary insomnia F51.01 Active 397 2004 Problem Iron deficiency anemia secondary to inadequate d ietary iron intake D50.8 Active 312865011 Problem Migraine without aura and without status migrain osus, not intractable G43.009 Active 006528864 Problem Chronic fatigue R53.82 Active 8422 9001 Problem Body mass index (BMI) of 34.0-34.9 in adult Z68.34 Active 271297179 ALLERGIES No Information ENCOUNTERS Encounter Location Date Diagnosis [place] [address] [facility] [id number] [address] [place] [address] Jul, [place] [address] [facility] [id number] [address] [place] [address] May, [facility] [address] [place] [id number] [address] [place] [address] May, Right lower quadrant abdomin al pain R10.31 [place] [address] [place] [id number] [address] [place] [address] March, Iron deficiency anemia secon singh to inadequate dietary iron intake D50.8 ; Migraine without aura and without status migrainosus, not intractable G43.009 ; Other obesity due to excess calories E66.09 ; Body mass index (BMI) of 34.0-34.9 in adult Z68.34 ; Elevated fasting glucose R73.01 ; Primary insomnia F51.01 and Chronic fatigue R53.82 [facility] [address] [address] 22 Mar, 2018 Encounter for Depo-Provera c ontraception Z30.42 [place] [address] [address] Dec, Encounter for well woman exa m Z01.419 ; Encounter for Depo-Provera contraception Z30.42 ; Obesity (BMI 30.0-34.9) E66.9 and Hyperinsulinemia E16.1 [place] [address] [address] Nov, Hyperinsulinemia E16.1 [place] [address] [address] Nov, Hyperinsulinemia E16.1 [place] [address] [address] Nov, Hyperinsulinemia E16.1 ; Tomas katie without aura and without status migrainosus, not intractable G43.009 ; Obesity (BMI 30.0-34.9) E66.9 and Iron deficiency anemia secondary to inadequate dietary iron intake D50.8 [place] [address] [address] Oct, Hyperinsulinemia E16.1 ; Tomas katie without aura and without status migrainosus, not intractable G43.009 ; Obesity (BMI 30.0-34.9) E66.9 ; Iron deficiency anemia secondary to inadequate dietary iron intake D50.8 ; Oral contraceptive pill surveillance Z30.41 and Dysuria R30.0 [facility] [address] [address] Oct, Abnormal CBC R79.89 [facility] [address] [address] Sep, Tachycardia R00.0 [place] [address] [address] 17 Sep, 2017 [facility] [address] [address] 14 Jul, 2017 Hyperinsulinemia E16.1 ; Obe sity (BMI 30.0-34.9) E66.9 and Migraine without aura and without status migrainosus, not intractable G43.009 [facility] [address] [address] 15 Jun, 2017 [facility] [address] [address] 10 Jun, 2017 Acute non-recurrent maxillar y sinusitis J01.00 [facility] [address] [id number] Apr, Dental examination Z01.20 [facility] [address] [id number] March, Dental examination Z01.20 [place] [address] [address] 03 Dec, 2016 Encounter for well woman exa m with routine gynecological exam Z01.419 ; Encounter for screening for malignant neoplasm of cervix Z12.4 ; Encounter for screening breast examination Z12.39 ; Screen for STD (sexually transmitted disease) Z11.3 and Encounter for prescription of oral contraceptives Z30.011 [facility] [address] [place] [id number] [place] [id number] Nov, Dental examination Z01.20 [place] [address] [address] Oct, Abnormal CBC R79.89 [place] [address] [address] Oct, Routine health maintenance Z 00.00 ; History of renal calculi Z87.442 ; Obesity (BMI 30.0-34.9) E66.9 and Family history of diabetes mellitus Z83.3 [place] [address] [place] [address] 08 Oct, 2016 Routine health maintenance Z 00.00 ; History of renal calculi Z87.442 ; Obesity (BMI 30.0-34.9) E66.9 and Family history of diabetes mellitus Z83.3 [facility] [address] [facility] [id number] [address] [place] [address] Jul, Irritable bowel syndrome wit h diarrhea K58.0 [facility] [address] [place] [id number] Jun, Dental examination Z01.20 [facility] [address] [place] [id number] Apr, Dental caries K02.9 [facility] [address] [place] [phone] March, Dental examination Z01.20 IMMUNIZATIONS Vaccine Route Administration Date Status DEPO PROVERA (150 MG/ML) IM Intramuscular April 12, 2018 Admini stered SOCIAL HISTORY Never Assessed REASON FOR VISIT Depo Provera injection PLAN OF CARE VITAL SIGNS MEDICATIONS Unknown Medications RESULTS Name Result Date Reference Range TEST, URINE (IN HOUSE) 2018-04-12 RESULTS negative Lot # [id number] Control + Exp date 11/21/19 PROCEDURES Procedure Date Ordered Result Body Site DEPO PROVERA (150 MG/ML) April 12, 2018 THER/PROPH/DIAG INJ, SC/IM April 12, 2018 URINE TEST April 12, 2018 INSTRUCTIONS MEDICATIONS ADMINISTERED No Known Medications MEDICAL (GENERAL) HISTORY Type Description Date Medical History ERCP Medical History Renal calculi Medical History Migraines Surgical History kidney stone removed Hospitalization History kidney stones Hospitalization History ER visit- itching all over b harvinder, blurry vision, SOB dxd migraine 11/2017
--- OUTSIDE RECORDS SUMMARY | 2020-05-30 13:09 | XMS REPORT ---
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 Name Role Phone ISAC GRADY Unavailable PROBLEMS Type Condition ICD9-CM Code KEO13-SN Code Onset Dates Condition S tatus SNOMED Code Problem Obesity (BMI 30.0-34.9) E66.9 Active 260498026163534 Problem Migraine without aura and without status migrain osus, not intractable G43.009 Active 540168043 Problem Iron deficiency anemia secondary to inadequate d ietary iron intake D50.8 Active 948419920 Problem Kidney stone N20.0 Active 9142018 7 Problem Abnormal CBC measurement R79.89 Activ e 369195264 Problem Pre-diabetes R73.03 Active 4477970 02 Problem Chronic fatigue R53.82 Active 8422 9001 Problem Primary insomnia F51.01 Active 397 2004 Problem Other obesity due to excess calories E66.09 Active 926046840 Problem Body mass index (BMI) of 34.0-34.9 in adult Z68.34 Active 937482685 ALLERGIES No Known Allergies ENCOUNTERS Encounter Location Date Diagnosis [facility] [address] [place] [id number] [place] [address] Nov, Encounter for Depo-Provera contraception Z30.42 [facility] [address] [facility] [place] [address] Aug, Encounter for Depo-Provera contraception Z30.42 [facility] [address] [facility] [id number] [place] [address] Aug, Encounter for immunization Z 23 [facility] [address] [facility] [place] [address] Jun, Encounter for Depo-Provera contraception Z30.42 [place] [id number] [place] [address] 20 Apr, 2019 Screening examination for sexually trans mitted disease Z11.3 ; Well woman exam Z01.419 ; Pre-diabetes R73.03 and Acute vaginitis N76.[address] [address] March, Encounter for Depo-Provera contraception Z30.42 [facility] [place] [id number] [address] [place] [address] Feb, Acute flank pain R10.9 ; Kid belinda stone N20.0 and Hematuria, unspecified type R31.[address] [address] Jan, Contraception management Z30.9 ; Contrac eptive education Z30.09 ; Pre- diabetes R73.03 and Migraine without aura and without status migrainosus, not intractable G43.[address] [address] Dec, Encounter for Depo-Provera contraception Z30.42 [facility] IN [place] [id number] [address] [place] [address] Nov, Acute non-recurrent pansinus itis J01.[address] [address] Sep, Encounter for Depo-Provera c ontraception Z30.[address] [address] 11 Jul, 2018 Pre-diabetes R73.03 ; Iron deficiency an emia secondary to inadequate dietary iron intake D50.8 ; Chronic fatigue R53.82 and Obesity (BMI 30.0-34.9) E66.[address] [address] 06 Jul, 2018 Encounter for Depo-Provera contraception Z30.42 [place] [id number] [place] [address] May, [address] [address] May, Right lower quadrant abdominal pain R10. [address] [address] March, Iron deficiency anemia secondary to inad equate dietary iron intake D50.8 ; Migraine without aura and without status migrainosus, not intractable G43.009 ; Other obesity due to excess calories E66.09 ; Body mass index (BMI) of 34.0-34.9 in adult Z68.34 ; Elevated fasting glucose R73.01 ; Primary insomnia F51.01 and Chronic fatigue R53.[address] [address] March, Encounter for Depo-Provera contraception Z30.[address] [address] 20 Dec, 2017 Encounter for well woman exam Z01.419 ; Encounter for Depo-Provera contraception Z30.42 ; Obesity (BMI 30.0-34.9) E66.9 and Hyperinsulinemia E16.[address] [address] Nov, Hyperinsulinemia E16.[address] [address] Nov, Hyperinsulinemia E16.[address] [address] Nov, Hyperinsulinemia E16.1 ; Migraine withou t aura and without status migrainosus, not intractable G43.009 ; Obesity (BMI 30.0-34.9) E66.9 and Iron deficiency anemia secondary to inadequate dietary iron intake D50.[address] [address] Oct, Hyperinsulinemia E16.1 ; Migraine withou t aura and without status migrainosus, not intractable G43.009 ; Obesity (BMI 30.0-34.9) E66.9 ; Iron deficiency anemia secondary to inadequate dietary iron intake D50.8 ; Oral contraceptive pill surveillance Z30.41 and Dysuria R30.0 [place] [address] [address] 15 Oct, 2017 Abnormal CBC R79.89 [facility] [address] [place] [address] Sep, Tachycardia R00.0 [place] [address] [address] 17 Sep, 2017 [place] [id number] 14 Jul, 2017 Hyperinsulinemia E16.1 ; Obesity (BMI 30 .0-34.9) E66.9 and Migraine without aura and without status migrainosus, not intractable G43.009 [place] [address] [address] Jun, [facility] [address] [place] [id number] [address] [place] [address] Jun, Acute non-recurrent maxillar y sinusitis J01.[address] [id number] Apr, Dental examination Z01.20 [facility] [address] [place] [id number] March, Dental examination Z01.[address] [address] 03 Dec, 2016 Encounter for well woman exam with robbini idris gynecological exam Z01.419 ; Encounter for screening for malignant neoplasm of cervix Z12.4 ; Encounter for screening breast examination Z12.39 ; Screen for STD (sexually transmitted disease) Z11.3 and Encounter for prescription of oral contraceptives Z30.011 [facility] [address] [id number] Nov, Dental examination Z01.20 [place] [address] [place] [address] 19 Oct, 2016 Abnormal CBC R79.89 [facility] [address] [address] 12 Oct, 2016 Routine health maintenance Z00.00 ; Hist ory of renal calculi Z87.442 ; Obesity (BMI 30.0-34.9) E66.9 and Family history of diabetes mellitus Z83.3 [facility] [address] [address] 08 Oct, 2016 Routine health maintenance Z00.00 ; Hist ory of renal calculi Z87.442 ; Obesity (BMI 30.0-34.9) E66.9 and Family history of diabetes mellitus Z83.3 [facility] [address] [facility] [id number] [address] [place] [address] 28 Jul, 2016 Irritable bowel syndrome wit h diarrhea K58.0 [facility] [address] [id number] Jun, Dental examination Z01.20 [facility] [address] [id number] Apr, Dental caries K02.9 [facility] [address] [id number] March, Dental examination Z01.20 IMMUNIZATIONS No Known Immunizations SOCIAL HISTORY Never Assessed REASON FOR VISIT Establish Care-STERLING Armenta, Control consult/ wants to continue maribell jeffers MA PLAN OF CARE Activity Details Follow Up 2-3 mos Reason:migraine VITAL SIGNS Height 61 in 2019-02-09 Weight 182.8 lbs 2019-02-09 Temperature 97.1 degrees Fahrenheit 2019-02-09 Heart Rate 107 bpm 2019-02-09 Respiratory Rate 20 2019-02-09 BMI 34.54 kg/m2 2019-02-09 Blood pressure systolic 118 mmHg 2019-02-09 Blood pressure diastolic 62 mmHg 2019-02-09 MEDICATIONS Medication Instructions Dosage Frequency Start Date End Date Duration S tatus Vitamin D Active Propranolol HCl ER 80 MG Orally Once a day 1 capsule 24h Jan, 201 9 90 days Active Depo-Provera Active Metformin HCl 500 mg Orally 2 times a day 1 tablet 12h 19 Oct, 2016 90 days Active RESULTS No Results PROCEDURES Procedure Date Ordered Result Body Site VENIPUNCT, ROUTINE* February 09, 2019 GLYCATED HEMOGLOBIN TEST February 09, 2019 LIPID PANEL February 09, 2019 ASSAY THYROID STIM HORMONE February 09, 2019 COMPREHEN METABOLIC PANEL February 09, 2019 INSTRUCTIONS MEDICATIONS ADMINISTERED No Known Medications MEDICAL (GENERAL) HISTORY Type Description Date Medical History ERCP Medical History Renal calculi Medical History Migraines Surgical History kidney stone removed Surgical History appendectomy Hospitalization History kidney stones Hospitalization History ER visit- itching all over b harvinder, blurry vision, SOB dxd migraine 11/2017 Hospitalization History childbirth
--- OUTSIDE RECORDS SUMMARY | 2020-05-30 13:09 | XMS REPORT ---
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 Name Role Phone YASMINBRENDASOTO Unavailable PROBLEMS Type Condition ICD9-CM Code EAV16-MY Code Onset Dates Condition S tatus SNOMED Code Problem Obesity (BMI 30.0-34.9) E66.9 Active 615337552522847 Problem Abnormal CBC measurement R79.89 Activ e 175335742 Problem Other obesity due to excess calories E66.09 Active 413672819 Problem Primary insomnia F51.01 Active 397 2004 Problem Iron deficiency anemia secondary to inadequate d ietary iron intake D50.8 Active 220602112 Problem Migraine without aura and without status migrain osus, not intractable G43.009 Active 559887822 Problem Chronic fatigue R53.82 Active 8422 9001 Problem Body mass index (BMI) of 34.0-34.9 in adult Z68.34 Active 554863131 ALLERGIES No Known Allergies ENCOUNTERS Encounter Location Date Diagnosis [place] [id number] [facility] [id number] [address] [place] [address] Jul, [place] [address] [facility] [id number] [address] [place] [address] May, [facility] [address] [facility] [id number] [address] [place] [address] May, Right lower quadrant abdomin al pain R10.31 [place] [address] [facility] [id number] [address] [place] [address] March, Iron deficiency anemia secon singh to inadequate dietary iron intake D50.8 ; Migraine without aura and without status migrainosus, not intractable G43.009 ; Other obesity due to excess calories E66.09 ; Body mass index (BMI) of 34.0-34.9 in adult Z68.34 ; Elevated fasting glucose R73.01 ; Primary insomnia F51.01 and Chronic fatigue R53.82 [facility] [address] [address] 22 Mar, 2018 Encounter for Depo-Provera c ontraception Z30.42 [place] [address] [address] Dec, Encounter for well woman exa m Z01.419 ; Encounter for Depo-Provera contraception Z30.42 ; Obesity (BMI 30.0-34.9) E66.9 and Hyperinsulinemia E16.[address] [address] 09 Nov, 2017 Hyperinsulinemia E16.1 [place] [address] [address] Nov, Hyperinsulinemia E16.1 [place] [address] [address] Nov, Hyperinsulinemia E16.1 ; Tomas katie without aura and without status migrainosus, not intractable G43.009 ; Obesity (BMI 30.0-34.9) E66.9 and Iron deficiency anemia secondary to inadequate dietary iron intake D50.8 [place] [address] [address] Oct, Hyperinsulinemia E16.1 ; Tomas katie without aura and without status migrainosus, not intractable G43.009 ; Obesity (BMI 30.0-34.9) E66.9 ; Iron deficiency anemia secondary to inadequate dietary iron intake D50.8 ; Oral contraceptive pill surveillance Z30.41 and Dysuria R30.0 [place] [address] [address] 15 Oct, 2017 Abnormal CBC R79.89 [facility] [address] [address] Sep, Tachycardia R00.0 [place] [address] [address] [place] [address] 17 Sep, 2017 [facility] [address] [address] 14 Jul, 2017 Hyperinsulinemia E16.1 ; Obe sity (BMI 30.0-34.9) E66.9 and Migraine without aura and without status migrainosus, not intractable G43.009 [facility] [address] [address] 15 Jun, 2017 [facility] [address] [address] 10 Jun, 2017 Acute non-recurrent maxillar y sinusitis J01.00 [facility] [place] [facility] [address] [id number] Apr, Dental examination Z01.20 [facility] [place] [facility] [address] [id number] March, Dental examination Z01.20 [place] [address] [address] 03 Dec, 2016 Encounter for well woman exa m with routine gynecological exam Z01.419 ; Encounter for screening for malignant neoplasm of cervix Z12.4 ; Encounter for screening breast examination Z12.39 ; Screen for STD (sexually transmitted disease) Z11.3 and Encounter for prescription of oral contraceptives Z30.011 [facility] [place] [facility] [address] [id number] Nov, Dental examination Z01.20 [place] [address] [address] Oct, Abnormal CBC R79.[address] [address] Oct, Routine health maintenance Z 00.00 ; History of renal calculi Z87.442 ; Obesity (BMI 30.0-34.9) E66.9 and Family history of diabetes mellitus Z83.3 [place] [address] [place] [id number] [address] 08 Oct, 2016 Routine health maintenance Z 00.00 ; History of renal calculi Z87.442 ; Obesity (BMI 30.0-34.9) E66.9 and Family history of diabetes mellitus Z83.3 [facility] [address] [facility] [id number] [place] [address] 28 Jul, 2016 Irritable bowel syndrome wit h diarrhea K58.0 [facility] [place] [facility] [address] [facility] [id number] [place] [id number] Jun, Dental examination Z01.20 [facility] [place] [facility] [address] [id number] Apr, Dental caries K02.9 [facility] [place] [facility] [address] [place] [id number] [place] [id number] March, Dental examination Z01.20 IMMUNIZATIONS No Known Immunizations SOCIAL HISTORY Never Assessed REASON FOR VISIT Diabetes fu -- renate camarena, patient state she is worried because she gained mor e weight with the Depo injection , states she has a lump on left side of her nec k by left ear PLAN OF CARE Activity Details Follow Up 3 Months, prn Reason:CHM/Ane neelima VITAL SIGNS Height 61 in 2018-04-21 Weight 181.0 lbs 2018-04-21 Temperature 97.8 degrees Fahrenheit 2018-04-21 Heart Rate 76 bpm 2018-04-21 Respiratory Rate 18 2018-04-21 BMI 34.20 kg/m2 2018-04-21 Blood pressure systolic 110 mmHg 2018-04-21 Blood pressure diastolic 78 mmHg 2018-04-21 MEDICATIONS Medication Instructions Dosage Frequency Start Date End Date Duration S tatus Iron (Ferrous Sulfate) 142 (45 Fe) MG Orally Once a day 1 tablet 24h Active Metformin HCl 500 mg Orally 2 times a day 1 tablet 12h Oct, 90 days Active Lunesta 2 MG Orally Once a day PRN 1 tablet immediately before bedt jess March, 30 days Active RESULTS Name Result Date Reference Range A1C (IN HOUSE) 2018-04-21 A1C IN HOUSE 5.4 4.3 - 5.6 % Previous A1c 5.3 Lot [id number] Exp date 12/2019 PROCEDURES Procedure Date Ordered Result Body Site GLYCATED HEMOGLOBIN TEST April 21, 2018 INSTRUCTIONS MEDICATIONS ADMINISTERED No Known Medications MEDICAL (GENERAL) HISTORY Type Description Date Medical History ERCP Medical History Renal calculi Medical History Migraines Surgical History kidney stone removed Hospitalization History kidney stones Hospitalization History ER visit- itching all over b harvinder, blurry vision, SOB dxd migraine 11/2017
--- OUTSIDE RECORDS SUMMARY | 2020-05-30 13:09 | XMS REPORT ---
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 Name Role Phone JONAH JEREZ Unavailable PROBLEMS Type Condition ICD9-CM Code [id number] Code Onset Dates Condition S tatus SNOMED Code Problem Obesity (BMI 30.0-34.9) E66.9 Active 668968962202025 Problem Abnormal CBC measurement R79.89 Activ e 745924860 Problem Other obesity due to excess calories E66.09 Active 703146937 Problem Primary insomnia F51.01 Active 397 2004 Problem Iron deficiency anemia secondary to inadequate d ietary iron intake D50.8 Active 863088822 Problem Migraine without aura and without status migrain osus, not intractable G43.009 Active 649916882 Problem Chronic fatigue R53.82 Active 8422 9001 Problem Body mass index (BMI) of 34.0-34.9 in adult Z68.34 Active [id number] ALLERGIES No Known Allergies ENCOUNTERS Encounter Location Date Diagnosis [place] [address] [place] [id number] [place] [phone] Jul, [place] [address] [place] [id number] [place] [phone] Jul, Encounter for Depo-Provera c ontraception Z30.42 [facility] [address] [facility] [id number] [address] [place] [phone] May, [place] [address] [place] [id number] [place] [phone] May, Right lower quadrant abdomin al pain R10.31 [place] [address] [facility] [id number] [address] [place] [phone] March, Iron deficiency anemia secon singh to inadequate dietary iron intake D50.8 ; Migraine without aura and without status migrainosus, not intractable G43.009 ; Other obesity due to excess calories E66.09 ; Body mass index (BMI) of 34.0-34.9 in adult Z68.34 ; Elevated fasting glucose R73.01 ; Primary insomnia F51.01 and Chronic fatigue R53.82 [place] [address] [address] 22 Mar, 2018 Encounter for Depo-Provera c ontraception Z30.42 [place] [address] [address] 20 Dec, 2017 Encounter for well woman exa m Z01.419 ; Encounter for Depo-Provera contraception Z30.42 ; Obesity (BMI 30.0-34.9) E66.9 and Hyperinsulinemia E16.[address] [address] 09 Nov, 2017 Hyperinsulinemia E16.1 [place] [address] [address] 08 Nov, 2017 Hyperinsulinemia E16.1 [place] [address] [address] 05 Nov, 2017 Hyperinsulinemia E16.1 ; Tomas katie without aura and without status migrainosus, not intractable G43.009 ; Obesity (BMI 30.0-34.9) E66.9 and Iron deficiency anemia secondary to inadequate dietary iron intake D50.8 [place] [address] [address] Oct, Hyperinsulinemia E16.1 ; Tomas katie without aura and without status migrainosus, not intractable G43.009 ; Obesity (BMI 30.0-34.9) E66.9 ; Iron deficiency anemia secondary to inadequate dietary iron intake D50.8 ; Oral contraceptive pill surveillance Z30.41 and Dysuria R30.0 [place] [address] [address] 15 Oct, 2017 Abnormal CBC R79.89 [facility] [address] [facility] [id number] [address] [place] [phone] 17 Sep, 2017 Tachycardia R00.0 [facility] [address] [address] 17 Sep, 2017 [facility] [address] [place] [id number] [place] [phone] 14 Jul, 2017 Hyperinsulinemia E16.1 ; Obe sity (BMI 30.0-34.9) E66.9 and Migraine without aura and without status migrainosus, not intractable G43.009 [facility] [address] [place] [id number] [place] [phone] Jun, [facility] [address] [address] Jun, Acute non-recurrent maxillar y sinusitis J01.00 [facility] [address] [id number] Apr, Dental examination Z01.20 [facility] [address] [place] [id number] [place] [phone] March, Dental examination Z01.20 [place] [address] [place] [id number] [place] [address] Dec, Encounter for well woman exa m with routine gynecological exam Z01.419 ; Encounter for screening for malignant neoplasm of cervix Z12.4 ; Encounter for screening breast examination Z12.39 ; Screen for STD (sexually transmitted disease) Z11.3 and Encounter for prescription of oral contraceptives Z30.011 [facility] [address] [place] [id number] [place] [id number] Nov, Dental examination Z01.20 [facility] [address] [address] Oct, Abnormal CBC R79.89 [facility] [address] [place] [id number] [place] [phone] Oct, Routine health maintenance Z 00.00 ; History of renal calculi Z87.442 ; Obesity (BMI 30.0-34.9) E66.9 and Family history of diabetes mellitus Z83.3 [facility] [address] [place] [id number] [place] [phone] 08 Oct, 2016 Routine health maintenance Z 00.00 ; History of renal calculi Z87.442 ; Obesity (BMI 30.0-34.9) E66.9 and Family history of diabetes mellitus Z83.3 [facility] [address] [facility] [id number] [address] [place] [phone] 28 Jul, 2016 Irritable bowel syndrome wit h diarrhea K58.0 [facility] [address] [id number] Jun, Dental examination Z01.20 [facility] [address] [id number] Apr, Dental caries K02.9 [facility] [address] [id number] March, Dental examination Z01.20 IMMUNIZATIONS No Known Immunizations SOCIAL HISTORY Never Assessed REASON FOR VISIT Pain (acute) right sided abdomen x 2 days, Does not go away when pressed on. No injury noted. Pain started in upper abodmen and that has gone away, but the pain persists in right lower abd. Last BM last night normal consistency. She has been nauseated with no vomiting. Pain comes and goes it is a stabbing pain, almost takes her breath away. Leander PLAN OF CARE Activity Details Follow Up prn Reason:f/u abdominal merari n VITAL SIGNS Height 61 in 2018-06-09 Weight 180.4 lbs 2018-06-09 Temperature 98.4 degrees Fahrenheit 2018-06-09 Heart Rate 92 bpm 2018-06-09 Respiratory Rate 20 2018-06-09 BMI 34.08 kg/m2 2018-06-09 Blood pressure systolic 124 mmHg 2018-06-09 Blood pressure diastolic 78 mmHg 2018-06-09 MEDICATIONS Medication Instructions Dosage Frequency Start Date End Date Duration S bradley Metformin HCl 500 mg Orally 2 times a day 1 tablet 12h Oct, 90 days Active RESULTS Name Result Date Reference Range UA LONG DIP (IN HOUSE) Lot # [id number] Exp date 02/2019 Clarity slightly cloudy Color dark yellow Odor None GLU Negative LINA Negative KET Negative SG 1.025 BLO Trace pH 5.0 Protein Negative URO 0.2 NIT Negative RADHA Trace Lot # Exp date CT Scan : Abdomen & Pelvis w/ Contrast PROCEDURES Procedure Date Ordered Result Body Site URINALYSIS, AUTO, W/O SCOPE June 09, 2018 INSTRUCTIONS MEDICATIONS ADMINISTERED No Known Medications MEDICAL (GENERAL) HISTORY Type Description Date Medical History ERCP Medical History Renal calculi Medical History Migraines Surgical History kidney stone removed Hospitalization History kidney stones Hospitalization History ER visit- itching all over b harvinder, blurry vision, SOB dxd migraine 11/2017
--- OUTSIDE RECORDS SUMMARY | 2020-05-30 13:09 | XMS REPORT ---
Author Author Rakel JEREZ Organization [facility] Address [address] [place] [address] Care Team Providers Care Ad Compositor Name Role Phone JONAH JEREZ Unavailable PROBLEMS Type Condition ICD9-CM Code SHK65-LC Code Onset Dates Condition S tatus SNOMED Code Problem Obesity (BMI 30.0-34.9) E66.9 Active [id number] Problem Abnormal CBC measurement R79.89 Activ e 598314540 Problem Other obesity due to excess calories E66.09 Active 445618023 Problem Primary insomnia F51.01 Active 397 2004 Problem Iron deficiency anemia secondary to inadequate d ietary iron intake D50.8 Active 297864811 Problem Migraine without aura and without status migrain osus, not intractable G43.009 Active 303326274 Problem Chronic fatigue R53.82 Active 8422 9001 Problem Body mass index (BMI) of 34.0-34.9 in adult Z68.34 Active 174208715 ALLERGIES No Information ENCOUNTERS Encounter Location Date Diagnosis [place] [address] [place] [id number] [place] [phone] Jul, [place] [address] [place] [id number] [place] [address] Jul, Encounter for Depo-Provera c ontraception Z30.42 [facility] [address] [facility] [id number] [address] [place] [phone] May, [place] [address] [place] [id number] [place] [phone] May, Right lower quadrant abdomin al pain R10.31 [place] [address] [facility] [id number] [address] [place] [phone] March, Iron deficiency anemia secon singh to inadequate dietary iron intake D50.8 ; Migraine without aura and without status migrainosus, not intractable G43.009 ; Other obesity due to excess calories E66.09 ; Body mass index (BMI) of 34.0-34.9 in adult Z68.34 ; Elevated fasting glucose R73.01 ; Primary insomnia F51.01 and Chronic fatigue R53.82 [place] [address] [address] 22 Mar, 2018 Encounter for Depo-Provera c ontraception Z30.42 [place] [address] [address] 20 Dec, 2017 Encounter for well woman exa m Z01.419 ; Encounter for Depo-Provera contraception Z30.42 ; Obesity (BMI 30.0-34.9) E66.9 and Hyperinsulinemia E16.1 [place] [address] [address] 09 Nov, 2017 Hyperinsulinemia E16.1 [place] [address] [address] 08 Nov, 2017 Hyperinsulinemia E16.1 [place] [address] [address] 05 Nov, 2017 Hyperinsulinemia E16.1 ; Tomas katie without aura and without status migrainosus, not intractable G43.009 ; Obesity (BMI 30.0-34.9) E66.9 and Iron deficiency anemia secondary to inadequate dietary iron intake D50.8 [place] [address] [address] Oct, Hyperinsulinemia E16.1 ; Tomas katie without aura and without status migrainosus, not intractable G43.009 ; Obesity (BMI 30.0-34.9) E66.9 ; Iron deficiency anemia secondary to inadequate dietary iron intake D50.8 ; Oral contraceptive pill surveillance Z30.41 and Dysuria R30.0 [place] [address] [address] 15 Oct, 2017 Abnormal CBC R79.89 [facility] [address] [place] [id number] [place] [address] 17 Sep, 2017 Tachycardia R00.0 [facility] [address] [address] 17 Sep, 2017 [facility] [address] [address] 14 Jul, 2017 Hyperinsulinemia E16.1 ; Obe sity (BMI 30.0-34.9) E66.9 and Migraine without aura and without status migrainosus, not intractable G43.009 [facility] [address] [address] Jun, [facility] [address] [address] Jun, Acute non-recurrent maxillar y sinusitis J01.00 [facility] [address] [place] [phone] Apr, Dental examination Z01.20 [facility] [address] [id number] March, Dental examination Z01.20 [place] [address] [address] Dec, Encounter for well woman exa m with routine gynecological exam Z01.419 ; Encounter for screening for malignant neoplasm of cervix Z12.4 ; Encounter for screening breast examination Z12.39 ; Screen for STD (sexually transmitted disease) Z11.3 and Encounter for prescription of oral contraceptives Z30.011 [facility] [address] [facility] [id number] [address] [place] [phone] Nov, Dental examination Z01.20 [facility] [address] [address] Oct, Abnormal CBC R79.89 [facility] [address] [place] [id number] [place] [address] Oct, Routine health maintenance Z 00.00 ; History of renal calculi Z87.442 ; Obesity (BMI 30.0-34.9) E66.9 and Family history of diabetes mellitus Z83.3 [facility] [address] [facility] [id number] [address] [place] [address] 08 Oct, 2016 Routine health maintenance Z 00.00 ; History of renal calculi Z87.442 ; Obesity (BMI 30.0-34.9) E66.9 and Family history of diabetes mellitus Z83.3 [facility] [address] [facility] [id number] [address] [place] [phone] 28 Jul, 2016 Irritable bowel syndrome wit h diarrhea K58.0 [facility] [address] [place] [phone] Jun, Dental examination Z01.20 [facility] [address] [place] [phone] Apr, Dental caries K02.9 [facility] [address] [place] [phone] March, Dental examination Z01.20 IMMUNIZATIONS No Known Immunizations SOCIAL HISTORY Never Assessed REASON FOR VISIT Positive CT PLAN OF CARE VITAL SIGNS MEDICATIONS Unknown Medications RESULTS No Results PROCEDURES No Known procedures INSTRUCTIONS MEDICATIONS ADMINISTERED No Known Medications MEDICAL (GENERAL) HISTORY Type Description Date Medical History ERCP Medical History Renal calculi Medical History Migraines Surgical History kidney stone removed Hospitalization History kidney stones Hospitalization History ER visit- itching all over b harvinder, blurry vision, SOB dxd migraine 11/2017
--- OUTSIDE RECORDS SUMMARY | 2020-05-30 13:10 | XMS REPORT | Continuity of Care Document ---
Author Organization Unknown Address Unknown Phone Unavailable Allergies Active Description [...] OF URETER 12/29/2017 NATALIE ROBERTS MD Ot D64. 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 1 ALLERGY STATUS TO OTHER ANTIBIOTIC AGENT 12/29/2017 Ot 285.9 ANEM IA NOS 12/29/2017 Ot 648.23 ANE MICHELE-ANTEPARTUM 12/29/2017 Ot 649.63 ENTERPRISE RINE SIZE DATE DISCREPANCY, ANTEPARTU 12/29/2017 CHASIDY PIZANO MD Ot 649.6 3 UTERINE SIZE DATE DISCREPANCY, ANTEPARTU 12/29/2017 CHASIDY PIZANO MD Ot V28.8 9 OTHER SPECIFIED SCREENING 12/29/2017 CHASIDY PIZANO MD Ot 592.0 CALCULUS OF KIDNEY 12/29/2017 CHASIDY PIZANO MD Ot 789.0 9 ABDOMINAL PAIN, OTHER SPECIFIED SITE 12/29/2017 CHASIDY PIZANO MD Ot 620.2 OVARIAN CYST NEC/NOS 12/29/2017 CHASIDY PIZANO MD Ot 625.9 FEM GENITAL SYMPTOMS NOS 12/30/2017 Ot 285.9 ANEM IA NOS 12/30/2017 Ot 648.23 ANE MICHELE-ANTEPARTUM 12/30/2017 Ot 649.63 ENTERPRISE RINE SIZE DATE DISCREPANCY, ANTEPARTU 12/30/2017 CHASIDY PIZANO MD Ot 649.6 3 UTERINE SIZE DATE DISCREPANCY, ANTEPARTU 12/30/2017 CHASIDY PIZANO MD Ot V28.8 9 OTHER SPECIFIED SCREENING 12/30/2017 CHASIDY PIZANO MD Ot 592.0 CALCULUS OF KIDNEY 12/30/2017 CHASIDY PIZANO MD Ot 789.0 9 ABDOMINAL PAIN, OTHER SPECIFIED SITE 12/30/2017 CHASIDY PIZANO MD Ot 620.2 OVARIAN CYST NEC/NOS 12/30/2017 CHASIDY PIZANO MD Ot 625.9 FEM GENITAL SYMPTOMS NOS 12/31/2017 NATALIE ROBERTS MD Ot D64. 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 1 ALLERGY STATUS TO OTHER ANTIBIOTIC AGENT 04/30/2018 Ot 649.63 ENTERPRISE RINE SIZE DATE DISCREPANCY, ANTEPARTU 04/30/2018 CHASIDY PIZANO MD Ot 649.6 3 UTERINE SIZE DATE DISCREPANCY, ANTEPARTU 04/30/2018 CHASIDY PIZANO MD Ot V28.8 9 OTHER SPECIFIED SCREENING 04/30/2018 CHASIDY PIZANO MD Ot 592.0 CALCULUS OF KIDNEY 04/30/2018 CHASIDY PIZANO MD Ot 789.0 9 ABDOMINAL PAIN, OTHER SPECIFIED SITE 04/30/2018 HARINDER BRAVO, CHASIDY Flores Ot 620.2 OVARIAN CYST NEC/NOS 04/30/2018 HARINDER BRAVO, CHASIDY Flores Ot 625.9 FEM GENITAL SYMPTOMS NOS 06/09/2018 Ot 649.63 ENTERPRISE RINE SIZE DATE DISCREPANCY, ANTEPARTU 06/09/2018 CHASIDY PIZANO MD Ot 649.6 3 UTERINE SIZE DATE DISCREPANCY, ANTEPARTU 06/09/2018 CHASIDY PIZANO MD Ot V28.8 9 OTHER SPECIFIED SCREENING 06/09/2018 HARINDRE BRAVO, CHASIDY Flores Ot 592.0 CALCULUS OF KIDNEY 06/09/2018 CHASIDY PIZANO MD Ot 789.0 9 ABDOMINAL PAIN, OTHER SPECIFIED SITE 06/09/2018 CHASIDY PZIANO MD Ot 620.2 OVARIAN CYST NEC/NOS 06/09/2018 HARINDER BRAVO, CHASIDY Flores Ot 625.9 FEM GENITAL SYMPTOMS NOS 06/10/2018 JONAH MAHER Ot K38.1 APPENDICULAR CONCRETIONS 06/10/2018 DEBBIE HAAS MD Ot E11.9 TYPE 2 DIABETES MELLITUS WITHOUT COMPLIC 06/10/2018 DEBBIE HAAS MD Ot K35.80 UNSPECIFIED ACUTE APPENDICITIS 06/10/2018 DEBBIE HAAS MD Ot Z79.84 [facility] (CURRENT) USE OF ORAL HYPOGLYC 06/16/2018 JONAH MAHER Ot K38.1 APPENDICULAR CONCRETIONS 06/16/2018 DEBBIE HAAS MD Ot E11.9 TYPE 2 DIABETES MELLITUS WITHOUT COMPLIC 06/16/2018 DEBBIE HAAS MD Ot K35.80 UNSPECIFIED ACUTE APPENDICITIS 06/16/2018 DEBBIE HAAS MD Ot 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 06/17/2018 DEBBIE HAAS MD Ot E11.9 TYPE 2 DIABETES MELLITUS WITHOUT COMPLIC 06/17/2018 DEBBIE HAAS MD Ot K35.80 UNSPECIFIED ACUTE APPENDICITIS 06/17/2018 DEBBIE HAAS MD Ot Z79.84 [facility] (CURRENT) USE OF ORAL HYPOGLYC 07/28/2018 JONAH MAHER Ot K38.1 APPENDICULAR CONCRETIONS Procedures Code Description Performed By Per formed On 73.4 MEDIC AL INDUCTION LABOR 03/30/2013 73.59 MANU AL ASSIST DELIV NEC 03/30/2013 [id number] RE SECTION OF APPENDIX, PERCUTANEOUS ENDO 06/10/2018 Results Test Result Range ANEMIA PANEL - 11/05/17 09:14 IRON, TOTAL 72 mcg/dL 40-190 FERRITIN 7 ng/mL 10-154 IRON BINDING CAPACITY 443 mcg/dL (calc) 250-450 % SATURATION 16 % (calc) 11-50 CBC - 11/05/17 09:14 MESSAGE: NRG CONTAINER TYPE: LAVENDER NRG THYROID ANALYZER - 11/26/17 08:12 TSH 1.55 mIU/L NRG INSULIN LEVEL - 11/30/17 12:34 INSULIN 7.9 uIU/mL 2.0-19.6 Capillary blood glucose measurement by g lucometer (mass/volume) - 12/29/17 15:59 Capillary blood glucose measurement by glucometer (mas s/volume) 107 mg/dL 70-110 Urine drug screening test - 12/29/17 16: 30 Urine phencyclidine detection by screening method NEGATIVE NEGATIVE Urine benzodiazepines detection by screening method NEGATIVE NEGATIVE Urine cocaine detection NEGATIVE NEGATI VE Urine amphetamines detection by screening method N EGATIVE NEGATIVE Urine methamphetamine detection by screening method NEGATIVE NEGATIVE Urine cannabinoids detection by screening method N EGATIVE NEGATIVE Urine opiates detection by screening method NEGATI VE NEGATIVE Urine barbiturates detection NEGATIVE N EGATIVE Screening urine tricyclic antidepressants detection NEGATIVE NEGATIVE Urine methadone detection by screening method NEGA TIVE NEGATIVE Urine oxycodone detection NEGATIVE NEGA TIVE Urine propoxyphene detection NEGATIVE N EGATIVE Complete urinalysis with reflex to cultu re - 12/29/17 16:30 Urine color determination YELLOW NRG Urine clarity determination VERY CLOUDY NRG Urine pH measurement by test strip 6.5 5-9 Specific gravity of urine by test strip 1.020 1.016-1.022 Urine protein assay by test strip, semi-quantitative 3+ NEGATIVE Urine glucose detection by automated test strip NE GATIVE NEGATIVE Erythrocytes detection in urine sediment by light micr oscopy 5+ NEGATIVE Urine ketones detection by automated test strip NE GATIVE NEGATIVE Urine nitrite detection by test strip NEGATIVE NEGATIVE Urine total bilirubin detection by test strip NEGA TIVE NEGATIVE Urine urobilinogen measurement by automated test strip (mass/volume) 1 mg/dL NORMAL Urine leukocyte esterase detection by dipstick 1+ NEGATIVE Automated urine sediment erythrocyte cou nt by microscopy (number/high power field) > [HPF] NRG Automated urine sediment leukocyte count by microscopy (number/high power field) [HPF] NRG Bacteria detection in urine sediment by light microsco py NEGATIVE NRG Squamous epithelial cells detection in u rine sediment by light microscopy 0-2 NRG Crystals detection in urine sediment by light microsco py NONE NRG Casts detection in urine sediment by light microscopy NONE NRG Mucus detection in urine sediment by light microscopy SMALL NRG Complete urinalysis with reflex to culture NO NRG Complete blood count (CBC) with automate d white blood cell (WBC) differential - 12/29/17 16:41 Blood leukocytes automated count (number/volume) 8.9 10*3/uL 4.3-11.0 Blood erythrocytes automated count (number/volume) 4.09 10*6/uL 4.35-5.85 Venous blood hemoglobin measurement (mass/volume) 11.1 g/dL 11.5-16.0 Blood hematocrit (volume fraction) 34 % 35-52 Automated erythrocyte mean corpuscular volume 82 [ foz_us] 80-99 Automated erythrocyte mean corpuscular h emoglobin (mass per erythrocyte) 27 pg 25-34 Automated erythrocyte mean corpuscular h emoglobin concentration measurement (mass/volume) 33 g/dL 32-36 Automated erythrocyte distribution width ratio 14. 2 % 10.0- 14.5 Automated blood platelet count (count/volume) 259 10*3/uL [...] 10*3 1.0-4.0 Blood monocytes automated count (number/volume) 0. 2 10*3 0.0-1.0 Automated eosinophil count 0.1 10*3/uL 0 .0-0.3 Automated blood basophil count (count/volume) 0.0 10*3/uL 0.0-0.1 Comprehensive metabolic panel - 12/29/17 16:41 Serum or plasma sodium measurement (moles/volume) 140 mmol/L 135-145 Serum or plasma potassium measurement (moles/volume) 3.8 mmol/L 3.6-5.0 Serum or plasma chloride measurement (moles/volume) 108 mmol/L 98-107 Carbon dioxide 18 mmol/L 21-32 Serum or plasma anion gap determination (moles/volume) 14 mmol/L 5-14 Serum or plasma urea nitrogen measurement (mass/volume ) 14 mg/dL 7-18 Serum or plasma creatinine measurement (mass/volume) 0.69 mg/dL 0.60-1.30 Serum or plasma urea nitrogen/creatinine mass ratio 20 NRG Serum or plasma creatinine measurement w ith calculation of estimated glomerular filtration rate > NRG Serum or plasma glucose measurement (mass/volume) 113 mg/dL 70-105 Serum or plasma calcium measurement (mass/volume) 8.4 mg/dL 8.5-10.1 Serum or plasma total bilirubin measurement (mass/volu me) 0.2 mg/dL 0.1-1.0 Serum or plasma alkaline phosphatase ramírez surement (enzymatic activity/volume) 69 U/L 40-136 Serum or plasma aspartate aminotransfera se measurement (enzymatic activity/volume) 18 U/L 5-34 Serum or plasma alanine aminotransferase measurement (enzymatic activity/volume) 14 U/L 0-55 Serum or plasma protein measurement (mass/volume) 7.2 g/dL 6.4-8.2 Serum or plasma albumin measurement (mass/volume) 3.6 g/dL 3.2-4.5 Serum or plasma C reactive protein measu rement (mass/volume) - 12/29/17 16:41 Serum or plasma C reactive protein measurement (mass/v olume) 0.96 mg/dL 0.00-0.50 Erythrocyte sedimentation rate by ric gren method - 12/29/17 16:41 Erythrocyte sedimentation rate by westergren method 36 mm 0- 20 Serum or plasma ethanol measurement (mas s/volume) - 12/29/17 16:41 Serum or plasma ethanol measurement (mass/volume) < mg/dL <10 CULTURE, GENITAL - 01/11/18 16:36 CULTURE, GENITAL SEE NOTE NRG Complete blood count (CBC) with automate d white blood cell (WBC) differential - 06/09/18 18:15 Blood leukocytes automated count (number/volume) 12.2 10*3/uL 4.3-11.0 Blood erythrocytes automated count (number/volume) 4.15 10*6/uL 4.35-5.85 Venous blood hemoglobin measurement (mass/volume) 11.1 g/dL 11.5-16.0 Blood hematocrit (volume fraction) 34 % 35-52 Automated erythrocyte mean corpuscular volume 81 [ foz_us] 80-99 Automated erythrocyte mean corpuscular h emoglobin (mass per erythrocyte) 27 pg 25-34 Automated erythrocyte mean corpuscular h emoglobin concentration measurement (mass/volume) 33 g/dL 32-36 Automated erythrocyte distribution width ratio 14. 3 % 10.0- 14.5 Automated blood platelet count (count/volume) 297 10*3/uL [...] 10*3 1.0-4.0 Blood monocytes automated count (number/volume) 0. 7 10*3 0.0-1.0 Automated eosinophil count 0.2 10*3/uL 0 .0-0.3 Automated blood basophil count (count/volume) 0.0 10*3/uL 0.0-0.1 Whole blood basic metabolic panel - 05/22 08/09 18:15 Serum or plasma sodium measurement (moles/volume) 139 mmol/L 135-145 Serum or plasma potassium measurement (moles/volume) 4.0 mmol/L 3.6-5.0 Serum or plasma chloride measurement (moles/volume) 109 mmol/L 98-107 Carbon dioxide 21 mmol/L 21-32 Serum or plasma anion gap determination (moles/volume) 9 mmol/L 5-14 Serum or plasma urea nitrogen measurement (mass/volume ) 10 mg/dL 7-18 Serum or plasma creatinine measurement (mass/volume) 0.65 mg/dL 0.60-1.30 Serum or plasma urea nitrogen/creatinine mass ratio 15 NRG Serum or plasma creatinine measurement w ith calculation of estimated glomerular filtration rate > NRG Serum or plasma glucose measurement (mass/volume) 106 mg/dL 70-105 Serum or plasma calcium measurement (mass/volume) 9.4 mg/dL 8.5-10.1 Methicillin resistant Staphylococcus aur eus (MRSA) screening culture - 06/10/18 04:20 Methicillin resistant Staphylococcus aureus (MRSA) scr eening culture NEG NRG Hemoglobin A1c - 06/10/18 07:59 Blood hemoglobin A1C measurement (mass/volume) 5.5 % 4.0-5.6 MEAN BLOOD GLUCOSE 111 % <=126 Urine beta human chorionic gonadotropin (hCG) measurement - 06/10/18 10:23 Urine beta human chorionic gonadotropin (hCG) measurem ent NEGATIVE NEGATIVE VITAMIN D, 25-H - 08/02/18 10:25 VITAMIN D,25-OH,TOTAL,IA 17 ng/mL 30-10 0 TSH - 02/09/19 11:39 TSH 0.89 mIU/L NRG CULTURE, URINE - 03/10/19 13:56 CULTURE, URINE, ROUTINE SEE NOTE NRG SUREPATH PAP AND HPV mRNA E6/E7 - 12:36 CLINICAL INFORMATION: NRG LMP: NRG PREV. PAP: NRG PREV. BX: NRG SOURCE: NR STATEMENT OF ADEQUACY: NR INTERPRETATION/RESULT: NR APARTMENT HOUSE MANAGER: NRG HPV mRNA E6/E7, SUREPATH VIAL Not Detected NOT DETECTED COMMENT NRG LIPID PANEL - 02/29/20 09:28 CHOLESTEROL, TOTAL 188 mg/dL <200 HDL CHOLESTEROL 40 mg/dL > OR = 50 TRIGLYCERIDES 151 mg/dL <150 LDL-CHOLESTEROL 122 mg/dL (calc) NRG CHOL/HDLC RATIO 4.7 (calc) <5.0 NON HDL CHOLESTEROL 148 mg/dL (calc) <13 0 Complete blood count (CBC) with automate d white blood cell (WBC) differential - 05/30/20 11:40 Blood leukocytes automated count (number/volume) 6.6 10*3/uL 4.3-11.0 Blood erythrocytes automated count (number/volume) 4.34 10*6/uL 4.35-5.85 Venous blood hemoglobin measurement (mass/volume) 11.8 g/dL 11.5-16.0 Blood hematocrit (volume fraction) 35 % 35-52 Automated erythrocyte mean corpuscular volume 80 [ foz_us] 80-99 Automated erythrocyte mean corpuscular h emoglobin (mass per erythrocyte) 27 pg 25-34 Automated erythrocyte mean corpuscular h emoglobin concentration measurement (mass/volume) 34 g/dL 32-36 Automated erythrocyte distribution width ratio 14. 6 % 10.0- 14.5 Automated blood platelet count (count/volume) 222 10*3/uL 130-400 Automated blood platelet mean volume measurement 10.4 [foz_us] 7.4-10.4 Automated blood neutrophils/100 leukocytes 84 % 42-75 Automated blood lymphocytes/100 leukocytes 13 % 12-44 Blood monocytes/100 leukocytes 3 % 0-12 Automated blood eosinophils/100 leukocytes 0 % 0-10 Automated blood basophils/100 leukocytes 0 % 0-10 Blood neutrophils automated count (number/volume) 5.6 10*3 1.8-7.8 Blood lymphocytes automated count (number/volume) 0.9 10*3 1.0-4.0 Blood monocytes automated count (number/volume) 0. 2 10*3 0.0-1.0 Automated eosinophil count 0.0 10*3/uL 0 .0-0.3 Automated blood basophil count (count/volume) 0.0 10*3/uL 0.0-0.1 Comprehensive metabolic panel - 05/30/20 11:40 Serum or plasma sodium measurement (moles/volume) 138 mmol/L 135-145 Serum or plasma potassium measurement (moles/volume) 2.7 mmol/L 3.6-5.0 Serum or plasma chloride measurement (moles/volume) 106 mmol/L 98-107 Carbon dioxide 18 mmol/L 21-32 Serum or plasma anion gap determination (moles/volume) 14 mmol/L 5-14 Serum or plasma urea nitrogen measurement (mass/volume ) 4 mg/dL 7-18 Serum or plasma creatinine measurement (mass/volume) 0.77 mg/dL 0.60-1.30 Serum or plasma urea nitrogen/creatinine mass ratio 5 NRG Serum or plasma creatinine measurement w ith calculation of estimated glomerular filtration rate > NRG Serum or plasma glucose measurement (mass/volume) 207 mg/dL 70-105 Serum or plasma calcium measurement (mass/volume) 8.7 mg/dL 8.5-10.1 Serum or plasma total bilirubin measurement (mass/volu me) 0.4 mg/dL 0.1-1.0 Serum or plasma alkaline phosphatase ramírez surement (enzymatic activity/volume) 93 U/L 40-136 Serum or plasma aspartate aminotransfera se measurement (enzymatic activity/volume) 29 U/L 5-34 Serum or plasma alanine aminotransferase measurement (enzymatic activity/volume) 26 U/L 0-55 Serum or plasma protein measurement (mass/volume) 7.8 g/dL 6.4-8.2 Serum or plasma albumin measurement (mass/volume) 4.1 g/dL 3.2-4.5 CALCIUM CORRECTED 8.6 mg/dL 8.5-10.1 Fibrin D-dimer FEU measurement in platel et poor plasma (mass/volume) - 05/30/20 11:40 Fibrin D-dimer FEU measurement in platelet poor plasma (mass/volume) < ug/mL 0.00-0.49 Blood lactic acid measurement (moles/vol ume) - 05/30/20 11:40 Blood lactic acid measurement (moles/volume) 1.34 mmol/L 0.50-2.00 Serum ragweed IgE antibody assay - 05/30 11:40 Serum ragweed IgE antibody assay 304 U/L 125-220 PROCALCITONIN (PCT) - 05/30/20 11:40 PROCALCITONIN (PCT) 0.06 ng/mL <0.10 Erythrocyte sedimentation rate by ric gren method - 05/30/20 11:40 Erythrocyte sedimentation rate by westergren method 88 mm 0- 20 Serum or plasma C reactive protein measu rement (mass/volume) - 05/30/20 11:40 Serum or plasma C reactive protein measurement (mass/v olume) 11.20 mg/dL 0.00-0.50 Complete urinalysis with reflex to cultu re - 05/30/20 11:50 Urine color determination YELLOW NRG Urine clarity determination CLEAR NR G Urine pH measurement by test strip 6.0 5-9 Specific gravity of urine by test strip 1.020 1.016-1.022 Urine protein assay by test strip, semi-quantitative 2+ NEGATIVE Urine glucose detection by automated test strip NE GATIVE NEGATIVE Erythrocytes detection in urine sediment by light micr oscopy NEGATIVE NEGATIVE Urine ketones detection by automated test strip NE GATIVE NEGATIVE Urine nitrite detection by test strip NEGATIVE NEGATIVE Urine total bilirubin detection by test strip NEGA TIVE NEGATIVE Urine urobilinogen measurement by automated test strip (mass/volume) 2.0 mg/dL < = 1.0 Urine leukocyte esterase detection by dipstick NEG ATIVE NEGATIVE Automated urine sediment erythrocyte cou nt by microscopy (number/high power field) NONE NRG Automated urine sediment leukocyte count by microscopy (number/high power field) [HPF] NRG Bacteria detection in urine sediment by light microsco py NEGATIVE NRG Squamous epithelial cells detection in u rine sediment by light microscopy 5-10 NRG Crystals detection in urine sediment by light microsco py NONE NRG Casts detection in urine sediment by light microscopy NONE NRG Mucus detection in urine sediment by light microscopy NEGATIVE NRG Complete urinalysis with reflex to culture NO NRG Encounters ACCT No. Visit Date/Time Discharge Status Pt. Type Provider Facility Loc./Unit Complaint [id number] 05/20/2020 17:40:00 05/20/2020 23:59:5 9 CLS Outpatient ISAC GRADY [facility] [place] [id number] 02/29/2020 08:20:00 Document Registration [id number] 05/11/2019 08:20:00 Document Registration [id number] 03/10/2019 08:40:00 Document Registration [id number] 02/09/2019 11:00:00 Document Registration [id number] 08/02/2018 09:00:00 Document Registration [id number] 01/11/2018 15:40:00 Document Registration [id number] 11/30/2017 12:20:00 Document Registration [id number] 11/26/2017 08:20:00 Document Registration [id number] 11/05/2017 09:00:00 Document Registration [id number] 06/09/2018 17:45:00 018 15:58:00 DIS Outpatient DEBBIE HAAS MD [facility] SDC RULE OUT APPENDICITIS [id number] 06/09/2018 09:53:00 018 23:59:59 CLS Outpatient JONAH MAHER [facility] RAD RLQ ABD PAIN [id number] 12/29/2017 15:44:00 018 17:40:00 DIS Emergency NATALIE ROBERTS MD [facility] ER LOSS OF VISION, COLD, S HAKING - PRE DIABETIC [id number] 04/12/2014 15:22:00 014 23:59:59 CLS Outpatient CHASIDY PIZANO MD [facility] RAD PELVIC PAIN LEFT OVARIA N CYST [id number] 12/27/2013 12:00:00 014 15:30:00 DIS Outpatient CHASIDY PIZANO MD [facility] SDC KIDNEY STONE [id number] 12/12/2013 09:11:00 014 23:59:59 CLS Outpatient CHASIDY PIZANO MD [facility] RAD KIDNEY STONE,FLANK PAIN [id number] 09/29/2013 17:06:00 23:59:59 CLS Outpatient [id number] 09/29/2013 18:20:00 013 21:29:00 DIS Emergency MARCO A DE LA CRUZ [facility] ER R SIDE ABDOMINAL PAIN KIDNEY STONES [id number] 03/30/2013 12:36:00 013 13:30:00 DIS Inpatient CHASIDY PIZANO MD [facility] WS INDUCTION [id number] 03/16/2013 12:52:00 23:59:59 CLS Outpatient CHASIDY PIZANO MD [facility] RAD POSITION, HE ARTRATE [id number] 05/30/2020 12:10:00 Document Registration [id number] 01/02/2013 10:08:00 Document Registration [id number] 10/27/2012 11:32:00 Document Registration
--- OUTSIDE RECORDS SUMMARY | 2020-05-30 13:10 | XMS REPORT ---
Author Author Rakel HOFFMAN Organization [facility] Address [address] [place] [address] Care Team Providers Care Specialty Person Name Role Phone SOTO HOFFMAN Unavailable PROBLEMS Type Condition ICD9-CM Code [id number] Code Onset Dates Condition S tatus SNOMED Code Problem Pre-diabetes R73.03 Active 7139897 02 Problem Abnormal CBC measurement R79.89 Activ e [id number] Problem Routine health maintenance Z00.00 Act shayla [id number] Problem History of renal calculi Z87.442 Activ e [id number] Problem Dental examination Z01.20 Active 1 94387392 Problem Hyperinsulinemia E16.1 Active 834 35989 Problem Obesity (BMI 30.0-34.9) E66.9 Active [id number] Problem Family history of diabetes mellitus Z83.3 Active [id number] ALLERGIES Unknown Allergies SOCIAL HISTORY No smoking Hx information available PLAN OF CARE VITAL SIGNS MEDICATIONS Medication Instructions Dosage Frequency Start Date End Date Duration S bradley Metformin HCl 500 MG Orally Daily with evening meal x1 week, then Twice a day 1 tablet with meals Oct, 30 day(s) Active RESULTS No Results PROCEDURES No Known procedures IMMUNIZATIONS No Known Immunizations
--- OUTSIDE RECORDS SUMMARY | 2020-05-30 13:10 | XMS REPORT ---
Author Author Rakel MACEDO Organization [facility] Address Unknown Care Team Providers Care Drink Box Mechanic Name Role Phone LOLA MACEDO Unavailable PROBLEMS Type Condition ICD9-CM Code [id number] Code Onset Dates Condition S tatus SNOMED Code Problem Iron deficiency anemia secondary to inadequate d ietary iron intake D50.8 Active 037781109 Problem Migraine without aura and without status migrain osus, not intractable G43.009 Active 735968505 Problem Abnormal CBC measurement R79.89 Activ e 755811687 Problem Obesity (BMI 30.0-34.9) E66.9 Active 604289686896689 Problem Hyperinsulinemia E16.1 Active 834 31135 ALLERGIES No Information ENCOUNTERS Encounter Location Date Diagnosis [place] [address] [address] Feb, [place] [address] [address] 20 Dec, 2017 Encounter for well woman exa m Z01.419 ; Encounter for Depo-Provera contraception Z30.42 ; Obesity (BMI 30.0-34.9) E66.9 and Hyperinsulinemia E16.1 [place] [address] [address] Nov, Hyperinsulinemia E16.1 [place] [address] [address] Nov, Hyperinsulinemia E16.1 [place] [address] [address] Nov, Hyperinsulinemia E16.1 ; [place] without aura and without status migrainosus, not intractable G43.009 ; Obesity (BMI 30.0-34.9) E66.9 and Iron deficiency anemia secondary to inadequate dietary iron intake D50.8 [facility] [address] [address] 15 Oct, 2017 Hyperinsulinemia E16.1 ; Tomas katie without aura and without status migrainosus, not intractable G43.009 ; Obesity (BMI 30.0-34.9) E66.9 ; Iron deficiency anemia secondary to inadequate dietary iron intake D50.8 ; Oral contraceptive pill surveillance Z30.41 and Dysuria R30.0 [place] [address] [address] 15 Oct, 2017 Abnormal CBC R79.89 [facility] [address] [place] [address] Sep, Tachycardia R00.0 [place] [address] [address] 17 Sep, 2017 [place] [address] [address] 14 Jul, 2017 Hyperinsulinemia E16.1 ; Obe sity (BMI 30.0-34.9) E66.9 and Migraine without aura and without status migrainosus, not intractable G43.009 [place] [address] [address] 15 Jun, 2017 [facility] [address] [address] Jun, Acute non-recurrent maxillar y sinusitis J01.00 [facility] [address] [place] [address] [phone] Apr, Dental examination Z01.20 [facility] [address] [place] [id number] [place] [address] [phone] March, Dental examination Z01.20 [facility] [address] [address] 03 Dec, 2016 Encounter for well woman exa m with routine gynecological exam Z01.419 ; Encounter for screening for malignant neoplasm of cervix Z12.4 ; Encounter for screening breast examination Z12.39 ; Screen for STD (sexually transmitted disease) Z11.3 and Encounter for prescription of oral contraceptives Z30.011 [facility] [address] [place] [phone] 13 Nov, 2016 Dental examination Z01.20 [facility] [address] [place] [id number] [address] [place] [address] 19 Oct, 2016 Abnormal CBC R79.89 [facility] [address] [address] 12 Oct, 2016 Routine health maintenance Z 00.00 ; History of renal calculi Z87.442 ; Obesity (BMI 30.0-34.9) E66.9 and Family history of diabetes mellitus Z83.3 [facility] [address] [address] 08 Oct, 2016 Routine health maintenance Z 00.00 ; History of renal calculi Z87.442 ; Obesity (BMI 30.0-34.9) E66.9 and Family history of diabetes mellitus Z83.3 [facility] [address] [place] [id number] [address] [place] [address] Jul, Irritable bowel syndrome wit h diarrhea K58.0 [facility] [address] [place] [address] [phone] Jun, Dental examination Z01.20 [facility] [address] [place] [address] [phone] Apr, Dental caries K02.9 [facility] [address] [place] [address] [phone] March, Dental examination Z01.20 IMMUNIZATIONS No Known Immunizations SOCIAL HISTORY Never Assessed REASON FOR VISIT pain PLAN OF CARE Activity Details Follow Up prn Reason:TE #31 VITAL SIGNS MEDICATIONS Medication Instructions Dosage Frequency Start Date End Date Duration S tatus [place] 5-325 MG Orally every 6 hrs 1 tablet as needed 6h 4 days Active Amoxicillin 500 MG Orally Three times a day 1 capsule 8h 7 days Active RESULTS No Results PROCEDURES Procedure Date Ordered Result Body Site LTD ORAL EVALUATION - PROBLEM FOCUS April 27, 2017 INTRAORL-PERIAPICAL 1 FILM [id number] April 27, 2017 INSTRUCTIONS MEDICATIONS ADMINISTERED No Known Medications MEDICAL (GENERAL) HISTORY Type Description Date Medical History ERCP Medical History Renal calculi Medical History Migraines Surgical History kidney stone removed Hospitalization History kidney stones Hospitalization History ER visit- itching all over b harvinder, blurry vision, SOB dxd migraine 11/2017
--- OUTSIDE RECORDS SUMMARY | 2020-05-30 13:10 | XMS REPORT ---
Author Author Rakel HOFFMAN Organization [facility] Address [address] [place] [address] Care Team Providers Care Instrumental Musician Name Role Phone YASMINBRENDASOTO Unavailable PROBLEMS Type Condition ICD9-CM Code AVZ39-PO Code Onset Dates Condition S tatus SNOMED Code Problem Obesity (BMI 30.0-34.9) E66.9 Active 571343853919090 Problem Abnormal CBC measurement R79.89 Activ e 255521883 Problem Other obesity due to excess calories E66.09 Active 987573228 Problem Primary insomnia F51.01 Active 397 2004 Problem Iron deficiency anemia secondary to inadequate d ietary iron intake D50.8 Active 621608019 Problem Migraine without aura and without status migrain osus, not intractable G43.009 Active 747296179 Problem Chronic fatigue R53.82 Active 8422 9001 Problem Body mass index (BMI) of 34.0-34.9 in adult Z68.34 Active 272525328 ALLERGIES No Information ENCOUNTERS Encounter Location Date Diagnosis [facility] [address] [place] [id number] [place] [phone] March, Iron deficiency anemia secon singh to inadequate dietary iron intake D50.8 ; Migraine without aura and without status migrainosus, not intractable G43.009 ; Other obesity due to excess calories E66.09 ; Body mass index (BMI) of 34.0-34.9 in adult Z68.34 ; Elevated fasting glucose R73.01 ; Primary insomnia F51.01 and Chronic fatigue R53.82 [facility] [address] [facility] [id number] [address] [place] [phone] March, Encounter for Depo-Provera c ontraception Z30.42 [facility] [address] [facility] [id number] [address] [place] [phone] Dec, Encounter for well woman exa m Z01.419 ; Encounter for Depo-Provera contraception Z30.42 ; Obesity (BMI 30.0-34.9) E66.9 and Hyperinsulinemia E16.1 [place] [address] [address] Nov, Hyperinsulinemia E16.1 [place] [address] [address] Nov, Hyperinsulinemia E16.1 [place] [address] [address] Nov, Hyperinsulinemia E16.1 ; [place] without aura and without status migrainosus, not intractable G43.009 ; Obesity (BMI 30.0-34.9) E66.9 and Iron deficiency anemia secondary to inadequate dietary iron intake D50.8 [place] [address] [address] Oct, Hyperinsulinemia E16.1 ; [place] without aura and without status migrainosus, not intractable G43.009 ; Obesity (BMI 30.0-34.9) E66.9 ; Iron deficiency anemia secondary to inadequate dietary iron intake D50.8 ; Oral contraceptive pill surveillance Z30.41 and Dysuria R30.0 [facility] [address] [address] 15 Oct, 2017 Abnormal CBC R79.89 [facility] [address] [address] 17 Sep, 2017 Tachycardia R00.0 [facility] [address] [address] 17 Sep, 2017 [place] [address] [address] Jul, Hyperinsulinemia E16.1 ; Obe sity (BMI 30.0-34.9) E66.9 and Migraine without aura and without status migrainosus, not intractable G43.009 [place] [address] [place] [address] Jun, [facility] [address] [place] [id number] [address] [place] [phone] Jun, Acute non-recurrent maxillar y sinusitis J01.00 [facility] [address] [facility] [id number] [address] [place] [phone] Apr, Dental examination Z01.20 [facility] [address] [place] [id number] [place] [address] [phone] March, Dental examination Z01.20 [facility] [address] [place] [id number] [place] [address] 03 Dec, 2016 Encounter for well woman exa m with routine gynecological exam Z01.419 ; Encounter for screening for malignant neoplasm of cervix Z12.4 ; Encounter for screening breast examination Z12.39 ; Screen for STD (sexually transmitted disease) Z11.3 and Encounter for prescription of oral contraceptives Z30.011 [facility] [address] [facility] [id number] [address] [place] [address] [phone] Nov, Dental examination Z01.20 [facility] [address] [place] [id number] [address] [place] [phone] Oct, Abnormal CBC R79.89 [facility] [address] [place] [id number] [address] [place] [address] 12 Oct, 2016 Routine health maintenance Z 00.00 ; History of renal calculi Z87.442 ; Obesity (BMI 30.0-34.9) E66.9 and Family history of diabetes mellitus Z83.3 [facility] [address] [place] [id number] [place] [address] 08 Oct, 2016 Routine health maintenance Z 00.00 ; History of renal calculi Z87.442 ; Obesity (BMI 30.0-34.9) E66.9 and Family history of diabetes mellitus Z83.3 [facility] [address] [place] [id number] [place] [phone] Jul, Irritable bowel syndrome wit h diarrhea K58.0 [facility] [address] [id number] [address] [place] [address] [phone] Jun, Dental examination Z01.20 [facility] [address] [facility] [id number] [address] [place] [address] [phone] Apr, Dental caries K02.9 [facility] [address] [facility] [id number] [address] [place] [address] [phone] March, Dental examination Z01.20 IMMUNIZATIONS No Known Immunizations SOCIAL HISTORY Never Assessed REASON FOR VISIT Deferred Lab Order PLAN OF CARE VITAL SIGNS MEDICATIONS No Known Medications RESULTS No Results PROCEDURES No Known procedures INSTRUCTIONS MEDICATIONS ADMINISTERED No Known Medications MEDICAL (GENERAL) HISTORY Type Description Date Medical History ERCP Medical History Renal calculi Medical History Migraines Surgical History kidney stone removed Hospitalization History kidney stones Hospitalization History ER visit- itching all over b harvinder, blurry vision, SOB dxd migraine 11/2017
--- OUTSIDE RECORDS SUMMARY | 2020-05-30 13:10 | XMS REPORT ---
Author Author Rakel HOFFMAN Organization [facility] Address [address] [place] [address] Care Team Providers Care Professor Of Languages Name Role Phone YASMINBRENDASOTO Unavailable PROBLEMS Type Condition ICD9-CM Code QFO37-YS Code Onset Dates Condition S tatus SNOMED Code Problem Obesity (BMI 30.0-34.9) E66.9 Active 040408336938087 Problem Abnormal CBC measurement R79.89 Activ e 776238456 Problem Other obesity due to excess calories E66.09 Active 348357362 Problem Primary insomnia F51.01 Active 397 2004 Problem Iron deficiency anemia secondary to inadequate d ietary iron intake D50.8 Active 363386634 Problem Migraine without aura and without status migrain osus, not intractable G43.009 Active 650286279 Problem Chronic fatigue R53.82 Active 8422 9001 Problem Body mass index (BMI) of 34.0-34.9 in adult Z68.34 Active 474821617 ALLERGIES No Information ENCOUNTERS Encounter Location Date Diagnosis [facility] [address] [place] [id number] [address] [place] [phone] March, Iron deficiency anemia secon singh to inadequate dietary iron intake D50.8 ; Migraine without aura and without status migrainosus, not intractable G43.009 ; Other obesity due to excess calories E66.09 ; Body mass index (BMI) of 34.0-34.9 in adult Z68.34 ; Elevated fasting glucose R73.01 ; Primary insomnia F51.01 and Chronic fatigue R53.82 [facility] [address] [facility] [id number] [address] [place] [phone] March, Encounter for Depo-Provera c ontraception Z30.42 [facility] [address] [facility] [id number] [address] [place] [phone] Dec, Encounter for well woman exa m Z01.419 ; Encounter for Depo-Provera contraception Z30.42 ; Obesity (BMI 30.0-34.9) E66.9 and Hyperinsulinemia E16.1 [place] [address] [address] Nov, Hyperinsulinemia E16.1 [place] [address] [address] Nov, Hyperinsulinemia E16.1 [place] [address] [address] Nov, Hyperinsulinemia E16.1 ; [place] without aura and without status migrainosus, not intractable G43.009 ; Obesity (BMI 30.0-34.9) E66.9 and Iron deficiency anemia secondary to inadequate dietary iron intake D50.8 [place] [address] [address] Oct, Hyperinsulinemia E16.1 ; [place] without aura and without status migrainosus, not intractable G43.009 ; Obesity (BMI 30.0-34.9) E66.9 ; Iron deficiency anemia secondary to inadequate dietary iron intake D50.8 ; Oral contraceptive pill surveillance Z30.[address] [facility] [address] [address] 15 Oct, 2017 Abnormal CBC R79.89 [facility] [address] [address] 17 Sep, [address] [facility] [address] [address] 17 Sep, 2017 [place] [address] [address] Jul, Hyperinsulinemia E16.1 ; Obe sity (BMI 30.0-34.9) E66.9 and Migraine without aura and without status migrainosus, not intractable G43.009 [place] [address] [place] [address] Jun, [facility] [address] [place] [id number] [address] [place] [phone] Jun, Acute non-recurrent maxillar y sinusitis J01.00 [facility] [address] [facility] [id number] [address] [place] [address] [phone] Apr, Dental examination Z01.20 [facility] [address] [place] [id number] [place] [address] [phone] March, Dental examination Z01.20 [facility] [address] [place] [id number] [address] [place] [phone] 03 Dec, 2016 Encounter for well woman exa m with routine gynecological exam Z01.419 ; Encounter for screening for malignant neoplasm of cervix Z12.4 ; Encounter for screening breast examination Z12.39 ; Screen for STD (sexually transmitted disease) Z11.3 and Encounter for prescription of oral contraceptives Z30.011 [facility] [address] [facility] [id number] [address] [place] [address] [phone] Nov, Dental examination Z01.20 [facility] [address] [place] [id number] [address] [place] [phone] Oct, Abnormal CBC R79.89 [facility] [address] [place] [id number] [address] [place] [phone] 12 Oct, 2016 Routine health maintenance Z 00.00 ; History of renal calculi Z87.442 ; Obesity (BMI 30.0-34.9) E66.9 and Family history of diabetes mellitus Z83.3 [facility] [address] [place] [id number] [address] [place] [phone] 08 Oct, 2016 Routine health maintenance Z 00.00 ; History of renal calculi Z87.442 ; Obesity (BMI 30.0-34.9) E66.9 and Family history of diabetes mellitus Z83.3 [facility] [address] [place] [id number] [address] [place] [phone] Jul, Irritable bowel syndrome wit h diarrhea K58.0 [facility] [address] [id number] [place] [phone] Jun, Dental examination Z01.20 [facility] [address] [id number] [address] [place] [address] [phone] Apr, Dental caries K02.9 [facility] [address] [id number] [address] [place] [address] [phone] March, Dental examination Z01.20 IMMUNIZATIONS No Known Immunizations SOCIAL HISTORY Never Assessed REASON FOR VISIT Lab (walk-in) PLAN OF CARE VITAL SIGNS MEDICATIONS No Known Medications RESULTS No Results PROCEDURES Procedure Date Ordered Result Body Site LIPID PANEL Nov 26, 2017 COMPREHEN METABOLIC PANEL Nov 26, 2017 ASSAY THYROID STIM HORMONE Nov 26, 2017 COMPLETE CBC W/AUTO DIFF WBC Nov 26, 2017 VENIPUNCT, ROUTINE* Nov 26, 2017 INSTRUCTIONS MEDICATIONS ADMINISTERED No Known Medications MEDICAL (GENERAL) HISTORY Type Description Date Medical History ERCP Medical History Renal calculi Medical History Migraines Surgical History kidney stone removed Hospitalization History kidney stones Hospitalization History ER visit- itching all over b harvinder, blurry vision, SOB dxd migraine 11/2017
--- OUTSIDE RECORDS SUMMARY | 2020-05-30 13:10 | XMS REPORT ---
Author Author Rakel STALEY [facility] Address [address] [place] [address] Care Team Providers Care Enterprise Data Architect Name Role Phone JULI STALEY Unavailable PROBLEMS Type Condition ICD9-CM Code PSQ09-OH Code Onset Dates Condition S tatus SNOMED Code Problem Dental examination Z01.20 Active 1 68333389 Assessment Dental examination Z01.20 Jun, Active 98484285 ALLERGIES Unknown Allergies SOCIAL HISTORY No smoking Hx information available PLAN OF CARE VITAL SIGNS MEDICATIONS Unknown Medications RESULTS No Results PROCEDURES Procedure Date Ordered Related Diagnosis Body Site Dental Prepay for Future Services Jul 15, 2016 IMMUNIZATIONS No Known Immunizations
--- OUTSIDE RECORDS SUMMARY | 2020-05-30 13:10 | XMS REPORT ---
Author Author Rakel HOFFMAN Organization [facility] Address [address] [place] [address] Care Team Providers Care Winchman/Crane Operator Name Role Phone YASMIN SOTO Unavailable PROBLEMS Type Condition ICD9-CM Code OWJ02-BZ Code Onset Dates Condition S tatus SNOMED Code Problem Migraine without aura and without status migrain osus, not intractable G43.009 Active 108898640 Problem Obesity (BMI 30.0-34.9) E66.9 Active 722885555177986 Problem Hyperinsulinemia E16.1 Active 834 10309 Problem Abnormal CBC measurement R79.89 Activ e 408097784 ALLERGIES No Known Allergies SOCIAL HISTORY Never Assessed PLAN OF CARE Activity Details Follow Up prn, 3 Months Reason:CHM VITAL SIGNS Height 61 in 2016-12-25 Weight 173.1 lbs 2016-12-25 Temperature 98.0 degrees Fahrenheit 2016-12-25 Heart Rate 78 bpm 2016-12-25 Respiratory Rate 18 2016-12-25 BMI 32.70 kg/m2 2016-12-25 Blood pressure systolic 120 mmHg 2016-12-25 Blood pressure diastolic 72 mmHg 2016-12-25 MEDICATIONS Medication Instructions Dosage Frequency Start Date End Date Duration S tatus Mononessa 0.25-35 MG-MCG Orally Once a day 1 tablet 24h Dec, 28 day(s) Active Advil 200 MG Orally every 6 hrs 1 tablet as needed 6h Active Metformin HCl 500 MG Orally Daily with evening meal x1 week, then Twice a day 1 tablet with meals Oct, 30 day(s) Active RESULTS Name Result Date Reference Range TEST, URINE (IN HOUSE) 2016-12-25 RESULTS neg Lot # [id number] Control + Exp date 02/2018 TRICHOMONAS (IN HOUSE) 2016-12-25 TRICHOMONAS neg Control + Lot # [id number] Exp date 01/19/2018 BACTERIAL VAGINOSIS (IN HOUSE) 2016-12-25 RESULTS neg Control + Lot # [id number] Exp date 07/2017 CULTURE, GENITAL 2016-12-25 Genital Culture, Routine Final report Result 1 PAP TEST W/ HPV REGARDLESS 2016-12-25 DIAGNOSIS: Specimen adequacy: Clinician provided ICD10: Performed by: . . Note: HPV, high-risk Negative Negative PDF Report 2016-12-25 PDF Report1 LCLS GC/CHLAM PROBE (STATE) 2016-12-25 CHLAMYDIA negative GC negative PROCEDURES Procedure Date Ordered Result Body Site PELVIC EXAMINATION 2016-12-25 N/A URINE TEST Dec 25, 2016 CULTURE, BACTERIA, OTHER Dec 25, 2016 TRICHOMONAS ASSAY W/OPTIC Dec 25, 2016 SPECIMEN HANDLING Dec 25, 2016 No Charge Dec 25, 2016 DOMINGUEZ VAG, DNA, DIR PROBE Dec 25, 2016 IMMUNIZATIONS No Known Immunizations MEDICAL (GENERAL) HISTORY Type Description Date Medical History ERCP Medical History Renal calculi Hospitalization History kidney stones
--- OUTSIDE RECORDS SUMMARY | 2020-05-30 13:10 | XMS REPORT ---
Author Author Rakel HOFFMAN Organization [facility] Address [address] [place] [address] Care Team Providers Care Fiberglass Fabricator Name Role Phone YASMINBRENDASOTO Unavailable PROBLEMS Type Condition ICD9-CM Code WBR29-NF Code Onset Dates Condition S tatus SNOMED Code Problem Iron deficiency anemia secondary to inadequate d ietary iron intake D50.8 Active 785163459 Problem Migraine without aura and without status migrain osus, not intractable G43.009 Active 552016582 Problem Abnormal CBC measurement R79.89 Activ e 287441840 Problem Obesity (BMI 30.0-34.9) E66.9 Active 681485853104300 Problem Hyperinsulinemia E16.1 Active 834 08470 ALLERGIES No Known Allergies ENCOUNTERS Encounter Location Date Diagnosis [place] [address] [address] March, [place] [address] [address] 20 Dec, 2017 Encounter for well woman exa m Z01.419 ; Encounter for Depo-Provera contraception Z30.42 ; Obesity (BMI 30.0-34.9) E66.9 and Hyperinsulinemia E16.1 [place] [address] [address] Nov, Hyperinsulinemia E16.1 [place] [address] [address] Nov, Hyperinsulinemia E16.1 [place] [address] [address] Nov, Hyperinsulinemia E16.1 ; Tomas katie without aura and without status migrainosus, not intractable G43.009 ; Obesity (BMI 30.0-34.9) E66.9 and Iron deficiency anemia secondary to inadequate dietary iron intake D50.8 [facility] [address] [address] 15 Oct, 2017 Hyperinsulinemia E16.1 ; Tomas katie without aura and without status migrainosus, not intractable G43.009 ; Obesity (BMI 30.0-34.9) E66.9 ; Iron deficiency anemia secondary to inadequate dietary iron intake D50.8 ; Oral contraceptive pill surveillance Z30.41 and Dysuria R30.0 [place] [address] [address] 15 Oct, 2017 Abnormal CBC R79.89 [facility] [place] [address] [address] Sep, Tachycardia R00.0 [place] [address] [address] Sep, [place] [address] [address] Jul, Hyperinsulinemia E16.1 ; Obe sity (BMI 30.0-34.9) E66.9 and Migraine without aura and without status migrainosus, not intractable G43.009 [place] [address] [address] Jun, [facility] [address] [address] Jun, Acute non-recurrent maxillar y sinusitis J01.00 [facility] [address] [facility] [id number] [address] [place] [phone] Apr, Dental examination Z01.20 [facility] [address] [phone] March, Dental examination Z01.20 [place] [address] [address] Dec, Encounter for well woman exa m with routine gynecological exam Z01.419 ; Encounter for screening for malignant neoplasm of cervix Z12.4 ; Encounter for screening breast examination Z12.39 ; Screen for STD (sexually transmitted disease) Z11.3 and Encounter for prescription of oral contraceptives Z30.011 [facility] [address] [facility] [id number] [address] [place] [address] [phone] Nov, Dental examination Z01.20 [facility] [address] [place] [id number] [address] [place] [address] Oct, Abnormal CBC R79.89 [facility] [address] [address] 12 Oct, 2016 Routine health maintenance Z 00.00 ; History of renal calculi Z87.442 ; Obesity (BMI 30.0-34.9) E66.9 and Family history of diabetes mellitus Z83.3 [facility] [address] [place] [id number] [address] [place] [phone] 08 Oct, 2016 Routine health maintenance Z 00.00 ; History of renal calculi Z87.442 ; Obesity (BMI 30.0-34.9) E66.9 and Family history of diabetes mellitus Z83.3 [facility] [address] [place] [id number] [address] [place] [phone] Jul, Irritable bowel syndrome wit h diarrhea K58.0 [facility] [address] [facility] [id number] [address] [place] [address] [phone] Jun, Dental examination Z01.20 [facility] [address] [facility] [id number] [address] [place] [address] [phone] Apr, Dental caries K02.9 [facility] [address] [place] [id number] [address] [place] [address] [phone] March, Dental examination Z01.20 IMMUNIZATIONS No Known Immunizations SOCIAL HISTORY Never Assessed REASON FOR VISIT Diabetes----DBennettRN PLAN OF CARE Activity Details Follow Up 3 Months Reason: VITAL SIGNS Height 61 in 2017-08-05 Weight 175 lbs 2017-08-05 Temperature 98.3 degrees Fahrenheit 2017-08-05 Heart Rate 80 bpm 2017-08-05 Respiratory Rate 20 2017-08-05 BMI 33.06 kg/m2 2017-08-05 Blood pressure systolic 120 mmHg 2017-08-05 Blood pressure diastolic 60 mmHg 2017-08-05 MEDICATIONS Medication Instructions Dosage Frequency Start Date End Date Duration S tatus Mononessa 0.25-35 MG-MCG Orally Once a day 1 tablet 24h Dec, 28 day(s) Active Hbdyzjuwkl-WQHN-Tqdlobzu 50-325-40 MG Orally 3 times a day a s needed 1 capsule as needed Jul, Aug, 30 days Active Metformin HCl 500 mg Orally 2 times a day 1 tablet 12h Oct, 90 days Active RESULTS No Results PROCEDURES No Known procedures INSTRUCTIONS MEDICATIONS ADMINISTERED No Known Medications MEDICAL (GENERAL) HISTORY Type Description Date Medical History ERCP Medical History Renal calculi Medical History Migraines Surgical History kidney stone removed Hospitalization History kidney stones Hospitalization History ER visit- itching all over b harvinder, blurry vision, SOB dxd migraine 11/2017
--- OUTSIDE RECORDS SUMMARY | 2020-05-30 13:10 | XMS REPORT ---
Author Author Rakel BRICEÑO [facility] Address [address] [place] [address] Care Team Providers Care General Warehouse Associate Name Role Phone KRISSY BRICEÑO Unavailable PROBLEMS Type Condition ICD9-CM Code CUO41-WS Code Onset Dates Condition S tatus SNOMED Code Problem Dental examination Z01.20 Active 1 85076440 Assessment Irritable bowel syndrome with diarrhea K58.0 Jul, Active 334440057 ALLERGIES Substance Reaction Event Type Date Status N.K.D.A. Unknown Non Drug Allergy Jul, Unknown SOCIAL HISTORY No smoking Hx information available PLAN OF CARE VITAL SIGNS Height 61 in 2016-08-19 Weight 173.2 lbs 2016-08-19 Heart Rate 60 bpm 2016-08-19 Respiratory Rate 20 2016-08-19 BMI 32.72 kg/m2 2016-08-19 Blood pressure systolic 108 mmHg 2016-08-19 Blood pressure diastolic 64 mmHg 2016-08-19 MEDICATIONS Medication Instructions Dosage Frequency Start Date End Date Duration S tatus Dicyclomine HCl 20 mg Orally 2 times a day 1 tablet 12h 28 S ep, 2015Sep, 30 day(s) Active immodium 1 tab Active Estradiol 2 MG Orally Once a day 1 tablet 24h Active RESULTS No Results PROCEDURES Procedure Date Ordered Related Diagnosis Body Site Office Visit, Est Pt., Level 3 Aug 19, 2016 IMMUNIZATIONS No Known Immunizations
--- OUTSIDE RECORDS SUMMARY | 2020-05-30 13:10 | XMS REPORT ---
Author Author Rakel HOFFMAN Organization [facility] Address [address] [place] [address] Care Team Providers Care Beverage Sales Consultant Name Role Phone HOFFMANBRENDA ElizaldeELE Unavailable PROBLEMS Type Condition ICD9-CM Code DLK24-GN Code Onset Dates Condition S tatus SNOMED Code Problem Obesity (BMI 30.0-34.9) E66.9 Active 761995775740037 Problem Abnormal CBC measurement R79.89 Activ e 027639633 Problem Other obesity due to excess calories E66.09 Active 477797565 Problem Primary insomnia F51.01 Active 397 2004 Problem Iron deficiency anemia secondary to inadequate d ietary iron intake D50.8 Active 942988563 Problem Migraine without aura and without status migrain osus, not intractable G43.009 Active 215605545 Problem Chronic fatigue R53.82 Active 8422 9001 Problem Body mass index (BMI) of 34.0-34.9 in adult Z68.34 Active 089093473 ALLERGIES No Known Allergies ENCOUNTERS Encounter Location Date Diagnosis [facility] [address] [place] [id number] [place] [address] March, Iron deficiency anemia secon singh to inadequate dietary iron intake D50.8 ; Migraine without aura and without status migrainosus, not intractable G43.009 ; Other obesity due to excess calories E66.09 ; Body mass index (BMI) of 34.0-34.9 in adult Z68.34 ; Elevated fasting glucose R73.01 ; Primary insomnia F51.01 and Chronic fatigue R53.82 [facility] [address] [facility] [id number] [address] [place] [phone] March, Encounter for Depo-Provera c ontraception Z30.42 [facility] [address] [facility] [id number] [address] [place] [phone] Dec, Encounter for well woman exa m Z01.419 ; Encounter for Depo-Provera contraception Z30.42 ; Obesity (BMI 30.0-34.9) E66.9 and Hyperinsulinemia E16.1 [place] [address] [address] Nov, Hyperinsulinemia E16.1 [place] [address] [address] Nov, Hyperinsulinemia E16.1 [place] [address] [address] Nov, Hyperinsulinemia E16.1 ; Tomas katie without aura and without status migrainosus, not intractable G43.009 ; Obesity (BMI 30.0-34.9) E66.9 and Iron deficiency anemia secondary to inadequate dietary iron intake D50.8 [place] [address] [address] Oct, Hyperinsulinemia E16.1 ; Tomas katie without aura and without status migrainosus, not intractable G43.009 ; Obesity (BMI 30.0-34.9) E66.9 ; Iron deficiency anemia secondary to inadequate dietary iron intake D50.8 ; Oral contraceptive pill surveillance Z30.41 and Dysuria R30.0 [facility] [address] [address] 15 Oct, 2017 Abnormal CBC R79.89 [facility] [address] [address] 17 Sep, 2017 Tachycardia R00.0 [facility] [address] [address] Sep, [place] [address] [address] Jul, Hyperinsulinemia E16.1 ; Obe sity (BMI 30.0-34.9) E66.9 and Migraine without aura and without status migrainosus, not intractable G43.009 [place] [address] [place] [address] Jun, [facility] [address] [place] [id number] [address] [place] [phone] Jun, Acute non-recurrent maxillar y sinusitis J01.00 [facility] [address] [id number] [address] [place] [address] [phone] Apr, Dental examination Z01.20 [facility] [address] [place] [id number] [place] [phone] March, Dental examination Z01.20 [facility] [address] [place] [id number] [address] [place] [address] 03 Dec, 2016 Encounter for well woman exa m with routine gynecological exam Z01.419 ; Encounter for screening for malignant neoplasm of cervix Z12.4 ; Encounter for screening breast examination Z12.39 ; Screen for STD (sexually transmitted disease) Z11.3 and Encounter for prescription of oral contraceptives Z30.011 [facility] [address] [facility] [id number] [address] [place] [phone] Nov, Dental examination Z01.20 [facility] [address] [place] [id number] [place] [phone] Oct, Abnormal CBC R79.89 [facility] [address] [place] [id number] [place] [phone] 12 Oct, 2016 Routine health maintenance Z 00.00 ; History of renal calculi Z87.442 ; Obesity (BMI 30.0-34.9) E66.9 and Family history of diabetes mellitus Z83.3 [facility] [address] [place] [id number] [place] [address] 08 Oct, 2016 Routine health maintenance Z 00.00 ; History of renal calculi Z87.442 ; Obesity (BMI 30.0-34.9) E66.9 and Family history of diabetes mellitus Z83.3 [facility] [address] [place] [id number] [address] [place] [phone] Jul, Irritable bowel syndrome wit h diarrhea K58.0 [facility] [address] [id number] [place] [phone] Jun, Dental examination Z01.20 [facility] [address] [id number] [address] [place] [address] [phone] Apr, Dental caries K02.9 [facility] [address] [id number] [address] [place] [address] [phone] March, Dental examination Z01.20 IMMUNIZATIONS Vaccine Route Administration Date Status DEPO PROVERA (150 MG/ML) IM Intramuscular Jan 11, 2018 Admini stered SOCIAL HISTORY Never Assessed REASON FOR VISIT Annual physical (female)--tjanssenMA, --normal pap last year, control refi ll , --eats vietnamese foods then has the episodes of sob, itching all over body an d dizziness. PLAN OF CARE Activity Details Follow Up 3 Months, prn Reason: VITAL SIGNS Height 61 in 2018-01-11 Weight 177.7 lbs 2018-01-11 Temperature 98.0 degrees Fahrenheit 2018-01-11 Heart Rate 78 bpm 2018-01-11 Respiratory Rate 20 2018-01-11 BMI 33.57 kg/m2 2018-01-11 Blood pressure systolic 112 mmHg 2018-01-11 Blood pressure diastolic 74 mmHg 2018-01-11 MEDICATIONS Medication Instructions Dosage Frequency Start Date End Date Duration S bradley Mononessa 0.25-35 MG- Orally Once a day 1 tablet 24h 28 Not-Taking Multi For Her - Active Metformin HCl 500 mg Orally 2 times a day 1 tablet 12h Oct, 90 days Active Mononessa 0.25-35 MG-MCG Orally Once a day 1 tablet 24h 03 Dec, 2016 28 day(s) Active RESULTS No Results PROCEDURES Procedure Date Ordered Result Body Site URINE TEST Jan 11, 2018 No Charge Jan 11, 2018 THER/PROPH/DIAG INJ, SC/IM Jan 11, 2018 Bacterial Vaginosis In House Jan 11, 2018 TRICHOMONAS ASSAY W/OPTIC Jan 11, 2018 DEPO PROVERA (150 MG/ML) Jan 11, 2018 CULTURE, BACTERIA, OTHER Jan 11, 2018 INSTRUCTIONS MEDICATIONS ADMINISTERED No Known Medications MEDICAL (GENERAL) HISTORY Type Description Date Medical History ERCP Medical History Renal calculi Medical History Migraines Surgical History kidney stone removed Hospitalization History kidney stones Hospitalization History ER visit- itching all over b harvinder, blurry vision, SOB dxd migraine 11/2017
--- OUTSIDE RECORDS SUMMARY | 2020-05-30 13:10 | XMS REPORT ---
Author Author Rakel MACEDO Organization [facility] Address Unknown Care Team Providers Care Cane Weigher Helper Name Role Phone LOLA MACEDO Unavailable PROBLEMS Type Condition ICD9-CM Code GCI72-AQ Code Onset Dates Condition S tatus SNOMED Code Problem Pre-diabetes R73.03 Active 1007786 02 Problem Abnormal CBC measurement R79.89 Activ e 507279426 Problem Family history of diabetes mellitus Z83.3 Active 052825655 Problem Obesity (BMI 30.0-34.9) E66.9 Active 293501014235189 Problem Dental examination Z01.20 Active 1 40443476 Problem Hyperinsulinemia E16.1 Active 834 28329 Problem History of renal calculi Z87.442 Activ e 810417018 Problem Routine health maintenance Z00.00 Act shayla 097979694 ALLERGIES Unknown Allergies SOCIAL HISTORY No smoking Hx information available PLAN OF CARE VITAL SIGNS MEDICATIONS Unknown Medications RESULTS No Results PROCEDURES Procedure Date Ordered Related Diagnosis Body Site Billing Notes on claim Dec 04, 2016 IMMUNIZATIONS No Known Immunizations
--- OUTSIDE RECORDS SUMMARY | 2020-05-30 13:10 | XMS REPORT ---
Author Author Rakel HOFFMAN Organization [facility] Address [address] [place] [address] Care Team Providers Care Patent Examiner Name Role Phone HOFFMANBRENDA ElizaldeELE Unavailable PROBLEMS Type Condition ICD9-CM Code VIF91-RJ Code Onset Dates Condition S tatus SNOMED Code Problem Obesity (BMI 30.0-34.9) E66.9 Active 461588329999280 Problem Abnormal CBC measurement R79.89 Activ e 426662861 Problem Other obesity due to excess calories E66.09 Active 509724144 Problem Primary insomnia F51.01 Active 397 2004 Problem Iron deficiency anemia secondary to inadequate d ietary iron intake D50.8 Active 014669911 Problem Migraine without aura and without status migrain osus, not intractable G43.009 Active 576576337 Problem Chronic fatigue R53.82 Active 8422 9001 Problem Body mass index (BMI) of 34.0-34.9 in adult Z68.34 Active 561116201 ALLERGIES No Known Allergies ENCOUNTERS Encounter Location Date Diagnosis [facility] [address] [place] [id number] [address] [place] [phone] March, Iron deficiency anemia secon singh to inadequate dietary iron intake D50.8 ; Migraine without aura and without status migrainosus, not intractable G43.009 ; Other obesity due to excess calories E66.09 ; Body mass index (BMI) of 34.0-34.9 in adult Z68.34 ; Elevated fasting glucose R73.01 ; Primary insomnia F51.01 and Chronic fatigue R53.82 [facility] [address] [facility] [id number] [address] [place] [phone] March, Encounter for Depo-Provera c ontraception Z30.42 [facility] [address] [facility] [id number] [address] [place] [phone] Dec, Encounter for well woman exa m Z01.419 ; Encounter for Depo-Provera contraception Z30.42 ; Obesity (BMI 30.0-34.9) E66.9 and Hyperinsulinemia E16.1 [place] [address] [address] Nov, Hyperinsulinemia E16.1 [place] [address] [address] Nov, Hyperinsulinemia E16.1 [place] [address] [address] Nov, Hyperinsulinemia E16.1 ; Tomas katie without aura and without status migrainosus, not intractable G43.009 ; Obesity (BMI 30.0-34.9) E66.9 and Iron deficiency anemia secondary to inadequate dietary iron intake D50.8 [place] [address] [address] Oct, Hyperinsulinemia E16.1 ; Tomas katie without aura and without status migrainosus, not intractable G43.009 ; Obesity (BMI 30.0-34.9) E66.9 ; Iron deficiency anemia secondary to inadequate dietary iron intake D50.8 ; Oral contraceptive pill surveillance Z30.41 and Dysuria R30.0 [facility] [address] [address] 15 Oct, 2017 Abnormal CBC R79.89 [facility] [address] [address] 17 Sep, 2017 Tachycardia R00.0 [facility] [address] [address] Sep, [place] [address] [address] Jul, Hyperinsulinemia E16.1 ; Obe sity (BMI 30.0-34.9) E66.9 and Migraine without aura and without status migrainosus, not intractable G43.009 [place] [address] [place] [address] Jun, [facility] [address] [place] [id number] [address] [place] [phone] Jun, Acute non-recurrent maxillar y sinusitis J01.00 [facility] [address] [id number] [address] [place] [address] [phone] Apr, Dental examination Z01.20 [facility] [address] [place] [id number] [place] [phone] March, Dental examination Z01.20 [facility] [address] [place] [id number] [address] [place] [phone] 03 Dec, 2016 Encounter for well woman exa m with routine gynecological exam Z01.419 ; Encounter for screening for malignant neoplasm of cervix Z12.4 ; Encounter for screening breast examination Z12.39 ; Screen for STD (sexually transmitted disease) Z11.3 and Encounter for prescription of oral contraceptives Z30.011 [facility] [address] [facility] [id number] [address] [place] [phone] Nov, Dental examination Z01.20 [facility] [address] [place] [id number] [address] [place] [phone] Oct, Abnormal CBC R79.89 [facility] [address] [place] [id number] [address] [place] [phone] 12 Oct, 2016 Routine health maintenance Z 00.00 ; History of renal calculi Z87.442 ; Obesity (BMI 30.0-34.9) E66.9 and Family history of diabetes mellitus Z83.3 [facility] [address] [place] [id number] [address] [place] [phone] 08 Oct, 2016 Routine health maintenance Z 00.00 ; History of renal calculi Z87.442 ; Obesity (BMI 30.0-34.9) E66.9 and Family history of diabetes mellitus Z83.3 [facility] [address] [place] [id number] [address] [place] [phone] Jul, Irritable bowel syndrome wit h diarrhea K58.0 [facility] [address] [id number] [address] [place] [phone] Jun, Dental examination Z01.20 [facility] [address] [id number] [address] [place] [address] [phone] Apr, Dental caries K02.9 [facility] [address] [id number] [address] [place] [phone] March, Dental examination Z01.20 IMMUNIZATIONS No Known Immunizations SOCIAL HISTORY Never Assessed REASON FOR VISIT Diabetes fu -- renate camarena PLAN OF CARE Activity Details Follow Up 3 Months Reason:[facility] VITAL SIGNS Height 61 in 2017-11-05 Weight 176.0 lbs 2017-11-05 Temperature 98 degrees Fahrenheit 2017-11-05 Heart Rate 80 bpm 2017-11-05 Respiratory Rate 20 2017-11-05 BMI 33.25 kg/m2 2017-11-05 Blood pressure systolic 122 mmHg 2017-11-05 Blood pressure diastolic 66 mmHg 2017-11-05 MEDICATIONS Medication Instructions Dosage Frequency Start Date End Date Duration S bradley Alvarado For Her - Active Metformin HCl 500 mg Orally 2 times a day 1 tablet 12h 19 Oct, 2016 90 days Active Mononessa 0.25-35 MG-MCG Orally Once a day 1 tablet 24h Dec, 28 day(s) Active RESULTS Name Result Date Reference Range A1C (IN HOUSE) 2017-11-05 A1C IN HOUSE 5.3 4.3 - 5.6 % Previous A1c 5.8 Lot [id number] Exp date 01/2019 TEST, URINE (IN HOUSE) 2017-11-05 RESULTS neg Lot # [id number] Control + Exp date 02/19/2019 UA LONG DIP (IN HOUSE) 2017-11-05 Lot # [id number] Exp date 08/21/2018 Clarity Clear Color Yellow Odor None GLU Negative LINA Negative KET Negative SG 1.010 BLO Negative pH 5.0 Protein Negative URO 0.2 NIT Negative RADHA Negative Lot # Exp date PROCEDURES Procedure Date Ordered Result Body Site GLYCATED HEMOGLOBIN TEST Nov 05, 2017 URINE TEST Nov 05, 2017 URINALYSIS, AUTO, W/O SCOPE Nov 05, 2017 INSTRUCTIONS MEDICATIONS ADMINISTERED No Known Medications MEDICAL (GENERAL) HISTORY Type Description Date Medical History ERCP Medical History Renal calculi Medical History Migraines Surgical History kidney stone removed Hospitalization History kidney stones Hospitalization History ER visit- itching all over b harvinder, blurry vision, SOB dxd migraine 11/2017
--- OUTSIDE RECORDS SUMMARY | 2020-05-30 13:10 | XMS REPORT ---
Author Author Rakel HOFFMAN Organization [facility] Address [address] [place] [address] Care Team Providers Care Muffle Worker Name Role Phone YASMINBRENDASOTO Unavailable PROBLEMS Type Condition ICD9-CM Code [id number] Code Onset Dates Condition S tatus SNOMED Code Problem Obesity (BMI 30.0-34.9) E66.9 Active [id number] Problem Abnormal CBC measurement R79.89 Activ e 598165266 Problem Other obesity due to excess calories E66.09 Active 581508553 Problem Primary insomnia F51.01 Active 397 2004 Problem Iron deficiency anemia secondary to inadequate d ietary iron intake D50.8 Active 285852721 Problem Migraine without aura and without status migrain osus, not intractable G43.009 Active 413802019 Problem Chronic fatigue R53.82 Active 8422 9001 Problem Body mass index (BMI) of 34.0-34.9 in adult Z68.34 Active 429977026 ALLERGIES No Information ENCOUNTERS Encounter Location Date Diagnosis [facility] [address] [place] [id number] [address] [place] [phone] March, Iron deficiency anemia secon singh to inadequate dietary iron intake D50.8 ; Migraine without aura and without status migrainosus, not intractable G43.009 ; Other obesity due to excess calories E66.09 ; Body mass index (BMI) of 34.0-34.9 in adult Z68.34 ; Elevated fasting glucose R73.01 ; Primary insomnia F51.01 and Chronic fatigue R53.82 [facility] [address] [facility] [id number] [address] [place] [phone] March, Encounter for Depo-Provera c ontraception Z30.42 [facility] [address] [facility] [id number] [address] [place] [phone] Dec, Encounter for well woman exa m Z01.419 ; Encounter for Depo-Provera contraception Z30.42 ; Obesity (BMI 30.0-34.9) E66.9 and Hyperinsulinemia E16.1 [place] [address] [address] Nov, Hyperinsulinemia E16.1 [place] [address] [address] Nov, Hyperinsulinemia E16.1 [place] [address] [address] Nov, Hyperinsulinemia E16.1 ; Tomas katie without aura and without status migrainosus, not intractable G43.009 ; Obesity (BMI 30.0-34.9) E66.9 and Iron deficiency anemia secondary to inadequate dietary iron intake D50.8 [place] [address] [address] Oct, Hyperinsulinemia E16.1 ; Tomas katie without aura and without status migrainosus, not intractable G43.009 ; Obesity (BMI 30.0-34.9) E66.9 ; Iron deficiency anemia secondary to inadequate dietary iron intake D50.8 ; Oral contraceptive pill surveillance Z30.41 and Dysuria R30.0 [facility] [address] [phone] 15 Oct, 2017 Abnormal CBC R79.89 [facility] [address] [address] 17 Sep, 2017 Tachycardia R00.0 [facility] [address] [address] 17 Sep, 2017 [place] [address] [address] Jul, Hyperinsulinemia E16.1 ; Obe sity (BMI 30.0-34.9) E66.9 and Migraine without aura and without status migrainosus, not intractable G43.009 [place] [address] [place] [address] Jun, [facility] [address] [place] [id number] [address] [place] [phone] Jun, Acute non-recurrent maxillar y sinusitis J01.00 [facility] [address] [facility] [id number] [address] [place] [phone] Apr, Dental examination Z01.20 [facility] [address] [place] [id number] [place] [phone] March, Dental examination Z01.20 [facility] [address] [id number] [address] [place] [address] 03 Dec, 2016 Encounter for well woman exa m with routine gynecological exam Z01.419 ; Encounter for screening for malignant neoplasm of cervix Z12.4 ; Encounter for screening breast examination Z12.39 ; Screen for STD (sexually transmitted disease) Z11.3 and Encounter for prescription of oral contraceptives Z30.011 [facility] [address] [facility] [id number] [address] [place] [phone] Nov, Dental examination Z01.20 [facility] [address] [place] [id number] [address] [place] [phone] Oct, Abnormal CBC R79.89 [facility] [address] [id number] [address] [place] [phone] 12 Oct, 2016 Routine health maintenance Z 00.00 ; History of renal calculi Z87.442 ; Obesity (BMI 30.0-34.9) E66.9 and Family history of diabetes mellitus Z83.3 [facility] [address] [id number] [address] [place] [phone] 08 Oct, 2016 Routine health maintenance Z 00.00 ; History of renal calculi Z87.442 ; Obesity (BMI 30.0-34.9) E66.9 and Family history of diabetes mellitus Z83.3 [facility] [address] [id number] [address] [place] [phone] Jul, Irritable bowel syndrome wit h diarrhea K58.0 [facility] [address] [id number] [place] [phone] Jun, Dental examination Z01.20 [facility] [address] [id number] [address] [place] [phone] Apr, Dental caries K02.9 [facility] [address] [id number] [address] [place] [phone] March, Dental examination Z01.20 IMMUNIZATIONS No Known Immunizations SOCIAL HISTORY Never Assessed REASON FOR VISIT Lab (walk-in)--[facility] PLAN OF CARE VITAL SIGNS MEDICATIONS No Known Medications RESULTS Name Result Date Reference Range INSULIN LEVEL 2017-11-30 INSULIN 7.9 2.0-19.6 PROCEDURES Procedure Date Ordered Result Body Site ASSAY OF INSULIN Nov 30, 2017 VENIPUNCT, ROUTINE* Nov 30, 2017 INSTRUCTIONS MEDICATIONS ADMINISTERED No Known Medications MEDICAL (GENERAL) HISTORY Type Description Date Medical History ERCP Medical History Renal calculi Medical History Migraines Surgical History kidney stone removed Hospitalization History kidney stones Hospitalization History ER visit- itching all over b harvinder, blurry vision, SOB dxd migraine 11/2017
--- NOTE | 2020-05-30 13:25 | NUR ---
PT UPDATED THAT 4TH FLOOR STAFF WOULD BE HERE SOON TO TAKE HER UPSTAIRS.
[2020-05-30] MEDS ORDERED: CATHETER FLUSH 10 ML SYR IV PRN (13:45)
--- NOTE | 2020-05-30 13:45 | NUR ---
PT ADMITTED TO ROOM 424, FOR BILATERAL PNA, HYPOKALEMIA AND COVID PUI. PT A/O X4, ORIENTED TO ROOM/CALL LIGHT. VSS. OXYGEN 96% ON ROOM AIR. PT REPORTS DYSPNEA WITH MOVEMENT. ASSESSMENT AND HISTORY COMPLETED. CALL LIGHT WITHIN REACH.
[2020-05-30 14:13] VITALS: BP 129/78
[2020-05-30] MEDS: CATHETER FLUSH 10 ML SYR IV SCH ×2 (14:27→19:45)
[2020-05-30] MEDS: inSUlin ASPART (NovoLOG) 1 UNIT/0.01 ML (CHARGE PER UNIT) SC SCH ×2 (14:33→19:45)
[2020-05-30] MEDS: ACETAMINOPHEN 500 MG TAB (TYLENOL) PO PRN ×2 (14:39→19:44)
--- OUTSIDE RECORDS SUMMARY | 2020-05-30 15:28 | XMS REPORT | Continuity of Care Document ---
[...] 12/29/2017 NATALIE ROBERTS MD Ot Z79. 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 1 ALLERGY STATUS TO OTHER ANTIBIOTIC AGENT 12/29/2017 Ot 285.9 ANEM IA NOS 12/29/2017 Ot 648.23 ANE MICHELE-ANTEPARTUM 12/29/2017 Ot 649.63 [place] RINE SIZE DATE DISCREPANCY, ANTEPARTU 12/29/2017 CHASIDY [...] Ot 648.23 ANE MICHELE-ANTEPARTUM 12/30/2017 Ot 649.63 [place] RINE SIZE DATE DISCREPANCY, ANTEPARTU 12/30/2017 CHASIDY [...] R51 HEADACHE 12/31/2017 NATALIE ROBERTS MD Ot Z79. 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 1 ALLERGY STATUS TO OTHER ANTIBIOTIC AGENT 04/30/2018 Ot 649.63 [place] RINE SIZE DATE DISCREPANCY, ANTEPARTU 04/30/2018 CHASIDY [...] FEM GENITAL SYMPTOMS NOS 06/09/2018 Ot 649.63 [place] RINE SIZE DATE DISCREPANCY, ANTEPARTU 06/09/2018 CHASIDY PIZANO MD Ot 649.6 3 UTERINE SIZE DATE DISCREPANCY, ANTEPARTU 06/09/2018 CHASIDY PIZANO MD Ot V28.8 9 OTHER SPECIFIED SCREENING 06/09/2018 HARINDER BRAVO, CHASIDY Flores Ot 592.0 CALCULUS OF KIDNEY 06/09/2018 CHASIDY PIZANO MD Ot 789.0 9 ABDOMINAL PAIN, OTHER SPECIFIED SITE 06/09/2018 CHASIDY PIZANO MD Ot 620.2 OVARIAN CYST NEC/NOS 06/09/2018 HARINDER BRAVO, CHASIDY [place] Ot 625.9 FEM GENITAL SYMPTOMS NOS 06/10/2018 JONAH MAHER Ot K38.1 APPENDICULAR CONCRETIONS 06/10/2018 DEBBIE HAAS MD Ot E11.9 TYPE 2 DIABETES MELLITUS WITHOUT COMPLIC 06/10/2018 DEBBIE HAAS MD Ot K35.80 UNSPECIFIED ACUTE APPENDICITIS 06/10/2018 DEBBIE HAAS MD Ot Z79.84 CUSTODIAL (CURRENT) USE OF ORAL HYPOGLYC 06/16/2018 JONAH MAHER Ot K38.1 APPENDICULAR CONCRETIONS 06/16/2018 DEBBIE HAAS MD Ot E11.9 TYPE 2 DIABETES MELLITUS WITHOUT COMPLIC 06/16/2018 DEBBIE HAAS MD Ot K35.80 UNSPECIFIED ACUTE APPENDICITIS 06/16/2018 DEBBIE HAAS MD Ot 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 06/17/2018 DEBBIE HAAS MD Ot E11.9 TYPE 2 DIABETES MELLITUS WITHOUT COMPLIC 06/17/2018 DEBBIE HAAS MD Ot K35.80 UNSPECIFIED ACUTE APPENDICITIS 06/17/2018 DEBBIE HAAS MD Ot Z79.84 CUSTODIAL (CURRENT) USE OF ORAL HYPOGLYC 07/28/2018 JONAH MAHER Ot K38.1 APPENDICULAR CONCRETIONS Procedures Code Description Performed By Per formed On 73.4 MEDIC AL INDUCTION LABOR 03/30/2013 73.59 MANU AL ASSIST DELIV NEC 03/30/2013 [id number] RE SECTION OF APPENDIX, PERCUTANEOUS ENDO 06/10/2018 [...] NR STATEMENT OF ADEQUACY: NR INTERPRETATION/RESULT: NR MACHINERY RIGGER: NRG HPV mRNA E6/E7, SUREPATH VIAL Not [...] Status Pt. Type Provider Facility Loc./Unit Complaint [id number] 05/20/2020 17:40:00 05/20/2020 23:59:5 9 CLS Outpatient [facility] [id number] 02/29/2020 08:20:00 Document Registration [id number] 05/11/2019 08:20:00 Document Registration [id number] 03/10/2019 08:40:00 Document Registration [id number] 02/09/2019 11:00:00 Document Registration [id number] 08/02/2018 09:00:00 Document Registration [id number] 01/11/2018 15:40:00 Document Registration [id number] 11/30/2017 12:20:00 Document Registration [id number] 11/26/2017 08:20:00 Document Registration [id number] 11/05/2017 09:00:00 Document Registration [id number] 06/09/2018 17:45:00 018 15:58:00 DIS Outpatient DEBBIE HAAS MD [facility] SDC RULE OUT APPENDICITIS [id number] 06/09/2018 09:53:00 018 23:59:59 CLS Outpatient JONAH MHAER [facility] RAD RLQ ABD PAIN [id number] 12/29/2017 15:44:00 018 17:40:00 DIS Emergency NATALIE ROBERTS MD [facility] ER LOSS OF VISION, COLD, S HAKING - PRE DIABETIC [id number] 04/12/2014 15:22:00 014 23:59:59 CLS Outpatient CHASIDY PIZANO MD [facility] RAD PELVIC PAIN LEFT OVARIA N CYST [id number] 12/27/2013 12:00:00 014 15:30:00 DIS Outpatient CHASIDY PIZANO MD [facility] SDC KIDNEY STONE [id number] 12/12/2013 09:11:00 014 23:59:59 CLS Outpatient CHASIDY PIZANO MD [facility] RAD KIDNEY STONE,FLANK PAIN [id number] 09/29/2013 17:06:00 23:59:59 CLS Outpatient [id number] 09/29/2013 18:20:00 013 21:29:00 DIS Emergency MARCO A DE LA CRUZ [facility] ER R SIDE ABDOMINAL PAIN KIDNEY STONES [id number] 03/30/2013 12:36:00 013 13:30:00 DIS Inpatient CHASIDY PIZANO MD [facility] WS INDUCTION [id number] 03/16/2013 12:52:00 23:59:59 CLS Outpatient CHASIDY PIZANO MD [facility] RAD POSITION, HE ARTRATE [id number] 05/30/2020 12:10:00 Document Registration [id number] 01/02/2013 10:08:00 Document Registration [id number] 10/27/2012 11:32:00 Document Registration
[2020-05-30 15:45] VITALS: BP 134/84
[2020-05-30 17:53] VITALS: BP 116/69
--- NOTE | 2020-05-30 18:04 | NUR ---
PT REPORTING CONTINUED PAIN IN CHEST/ACROSS DIAPHRAGM. RESP 40, OXYGEN 93% ON RA. 2LNC APPLIED. DR MERCHANT NOTIFIED ORDER RECEIVED FOR MORPHINE 1MG Q2HRS.
[2020-05-30] MEDS: morphine INJ 4 MG/ML 1 ML (VIAL/SYRINGE) IVP PRN (18:44)
[2020-05-30 20:00] VITALS: BP 116/69
[2020-05-30] MEDS: RX-ALBUTEROL INHALER (VENTOLIN HFA) 18 GM IH SCH (21:57)
[2020-05-30 23:43] VITALS: BP 116/68
[2020-05-31] MEDS: RX-ALBUTEROL INHALER (VENTOLIN HFA) 18 GM IH SCH ×7 (02:30→21:37)
[2020-05-31 04:18] VITALS: BP 114/71
[2020-05-31] MEDS: ACETAMINOPHEN 500 MG TAB (TYLENOL) PO PRN ×3 (04:24→21:36)
[2020-05-31] MEDS: inSUlin ASPART (NovoLOG) 1 UNIT/0.01 ML (CHARGE PER UNIT) SC SCH ×4 (04:26→21:36)
[2020-05-31] MEDS: CATHETER FLUSH 10 ML SYR IV SCH ×3 (04:26→21:37)
[2020-05-31 08:11] VITALS: BP 112/68
[2020-05-31] MEDS: morphine INJ 4 MG/ML 1 ML (VIAL/SYRINGE) IVP PRN (08:22)
[2020-05-31] MEDS ORDERED: AZITHROMYCIN 250 MG TAB (ZITHROMAX) PO SCH (09:00)
[2020-05-31] MEDS ORDERED: REMDESIVIR INJ (NON-FORMULARY) 200 MG in NS (IVPB) 210 ML IV NR (11:00)
--- NOTE | 2020-05-31 11:38 | History & Physical-Hospitalist ---
History of Present Illness HPI/Chief Complaint Rakel Ceballos is a 34-year-old female with past medical history of prediabetes and obesity who presented with shortness of breath. She says that her symptoms started on Wednesday. She reports having fevers. She reports a dry cough. She reports having some pleuritic chest pain. She denies any abdominal pain, nausea, vomiting, or diarrhea. She denies tobacco use. Her only medication is metformin. Source: patient Exam Limitations: no limitations Date Seen 05/31/20 Time Seen by a Provider: 09:45 Attending Physician Amy Weiss MD PCP Center/[facility] Referring Physician Date of Admission May 30, 2020 at 12:39 Home Medications & Allergies Home Medications Reviewed patient Home Medication Reconciliation performed by pharmacy medication reconciliations statistical technician and/or nursing. Patients Allergies have been reviewed. Allergies Allergies Coded Allergies NKANo Known Allergies (Verified Allergy, Unknown, 05/11/06) Past Beatsht-Hnmcak-Fvgvnq Hx Past Med/Social Hx: Reviewed Nursing Past Med/Soc Hx Patient Social History Alcohol Use: Denies Use Recreational Drug Use: No Smoking Status: Never a Smoker Recent Foreign Travel: No Contact w/other who traveled: No Recent Hopitalizations: Yes Recent Infectious Disease Expo: No Immunizations Up To Date Tetanus Booster (TDap): Less than 5yrs Date of Influenza Vaccine: Oct 26, 2013 Past Medical History Surgeries: Appendectomy Reproductive: No Sexually Transmitted Disease: No HIV/AIDS: No Female Reproductive Disorders: Denies Genitourinary: Kidney Infection, Kidney Stones Endocrine: Diabetes, Non-Insulin dep Loss of Vision: Denies Hearing Impairment: Denies History of Blood Disorders: Yes (ANEMIA WITH Previous ) Adverse Reaction to Blood Morrison: No Family History Reviewed Nursing Family Hx Diabetes mellitus No Pertinent Family Hx Review of Systems Constitutional: no symptoms reported EENTM: no symptoms reported Respiratory: no symptoms reported Cardiovascular: no symptoms reported Gastrointestinal: no symptoms reported Genitourinary: no symptoms reported Musculoskeletal: no symptoms reported Skin: no symptoms reported Psychiatric/Neurological: No Symptoms Reported Physical Exam Physical Exam Vital Signs Vital Signs - First Documented 05/30/20 05/30/20 05/30/20 11:30 15:45 18:47 Temp 37.8 Pulse 111 Resp 16 B/P (MAP) 134/84 (101) Pulse Ox 95 O2 Delivery Room Air O2 Flow Rate 2.00 FiO2 21 Capillary Refill : Less Than 3 SecondsLess Than 3 Seconds Height, Weight, BMI Height: 5'1.00" Weight: 180lbs. 0.0oz. 81.736425ta; 34.74 BMI Method:Stated General Appearance: No Apparent Distress HEENT: PERRL/EOMI, Pharynx Normal Neck: Normal Inspection, Supple Respiratory: Lungs Clear, Normal Breath Sounds, Other (Tachypnea) Cardiovascular: Regular Rate, Rhythm, No Edema, No Murmur Gastrointestinal: Normal Bowel Sounds, Non Tender, Soft Extremity: Normal Inspection, Non Tender, No Pedal Edema Neurologic/Psychiatric: Alert, Oriented x3, No Motor/Sensory Deficits, Normal Mood/Affect Skin: Normal Color, Diaphoresis Results Results/Procedures Labs Laboratory Tests 05/30/20 11:40 Patient resulted labs reviewed. Imaging: Reviewed Imaging Report Assessment/Plan Admission Diagnosis Acute respiratory failure with hypoxia Admission Status: Inpatient Order (span 2 midnights) Reason for Inpatient Admission: Bilateral pneumonia COVID PUI Assessment and Plan COVID-19 Acute respiratory failure with hypoxia Bilateral pneumonia Tachypnea and hypoxia Chest x-ray with bilateral infiltrates COVID PCR positive Begin Remdesivir Start Decadron Procalcitonin normal, discontinue antibiotics Hypokalemia Continue to monitor and replace as needed Prediabetes Sliding scale insulin Obesity Clinically significant, no acute management needs DVT prophylaxis: Lovenox Diagnosis/Problems Diagnosis/Problems (1) COVID-19 Status: Acute (2) Acute respiratory failure with hypoxia Status: Acute (3) Prediabetes Status: Chronic (4) Obesity Status: Chronic (5) Bilateral pneumonia Status: Acute Qualifiers: Pneumonia type: due to unspecified organism Lung location: lower lobe of lung Qualified Codes: J18.1 - Lobar pneumonia, unspecified organism (6) Hypokalemia Status: Acute Clinical Quality Measures DVT/VTE Risk/Contraindication: Risk Factor Score Per Nursin RFS Level Per Nursing on Admit: 1=Low/No VTE PPX AMY WEISS MD May 31, 2020 11:38
[2020-05-31 11:44] VITALS: BP 118/83
--- NOTE | 2020-05-31 11:44 | NUR ---
DR WEISS NOTIFIED PT OF POSITIVE COVID RESULTS. PT MOVED FROM PUI ROOM TO [facility].
[2020-05-31] MEDS: DEXAMETHASONE 10 MG/ML (DECADRON) 1 ML VIAL IV SCH (11:48)
[2020-05-31] MEDS: ENOXAPARIN 40 MG/0.4 ML (LOVENOX) SYR SC SCH (11:48)
[2020-05-31] MEDS ORDERED: cefTRIAXone 1,000 MG/SWFI 10 ML IV PUSH IV SCH ×2 (12:00)
[2020-05-31] MEDS: ONDANSETRON 4 MG/2 ML (SDV) Z0FRAN IV PRN (12:00)
[2020-05-31 12:52] LABS: BASOPHILS % (AUTO) 0 % (0-10); EOSINOPHILS % (AUTO) 0 % (0-10); HEMATOCRIT 32 % (35-52); HEMOGLOBIN 10.8 G/DL (11.5-16.0); LYMPHOCYTES # (AUTO) 1.1 X 10^3 (1.0-4.0); LYMPHOCYTES % (AUTO) 20 % (12-44); MEAN CORPUSCULAR HEMOGLOBIN 27 PG (25-34); MEAN CORPUSCULAR HGB CONC 33 G/DL (32-36); MEAN CORPUSCULAR VOLUME 81 FL (80-99); MEAN PLATELET VOLUME 10.6 FL (7.4-10.4); MONOCYTES # (AUTO) 0.3 X 10^3 (0.0-1.0); MONOCYTES % (AUTO) 5 % (0-12); NEUTROPHILS % (AUTO) 75 % (42-75); PLATELET COUNT 230 10^3/uL (130-400); RED CELL DISTRIBUTION WIDTH 14.6 % (10.0-14.5); WHITE BLOOD COUNT 5.4 10^3/uL (4.3-11.0)
[2020-05-31 13:00] LABS: ALBUMIN 3.7 GM/DL (3.2-4.5); CHLORIDE 109 MMOL/L (98-107); SODIUM 140 MMOL/L (135-145)
[2020-05-31 13:01] LABS: CALCIUM 8.6 MG/DL (8.5-10.1)
[2020-05-31 13:02] LABS: GLUCOSE 147 MG/DL (70-105); TOTAL PROTEIN 7.3 GM/DL (6.4-8.2)
[2020-05-31 13:03] LABS: CARBON DIOXIDE 20 MMOL/L (21-32)
[2020-05-31 13:04] LABS: BILIRUBIN,TOTAL 0.3 MG/DL (0.1-1.0)
[2020-05-31 13:05] LABS: ALKALINE PHOSPHATASE 80 U/L (40-136)
[2020-05-31 13:06] LABS: GFR ESTIMATED > 60
[2020-05-31 13:07] LABS: BUN/CREATININE RATIO 7
[2020-05-31 13:09] LABS: ALANINE AMINOTRANSFERASE 25 U/L (0-55)
--- NOTE | 2020-05-31 13:11 | NUR ---
PT INDICATED TO THE DR THAT SHE JUST TAKES METFORMIN. I CALLED [facility] AND THEY FILLED METFORMIN 500MG ON 05-07-2020 #60/30DS. I HAVE ENTERED THIS ON THE MED REC
[2020-05-31 17:00] VITALS: BP 118/70
[2020-05-31] MEDS: POTASSIUM CL 10MEQ/50ML IVPB 50 ML IV SCH (17:53)
[2020-05-31] MEDS: KCL 20 MEQ TAB (K-DUR) PO SCH ×3 (17:53→21:34)
[2020-05-31 20:00] VITALS: BP 135/82
[2020-06-01] VITALS: BP 120/80
[2020-06-01] MEDS: RX-ALBUTEROL INHALER (VENTOLIN HFA) 18 GM IH SCH ×6 (02:46→22:35)
[2020-06-01 04:00] VITALS: BP 130/80
[2020-06-01 05:35] LABS: BASOPHILS % (AUTO) 0 % (0-10); EOSINOPHILS % (AUTO) 0 % (0-10); HEMATOCRIT 31 % (35-52); HEMOGLOBIN 10.4 G/DL (11.5-16.0); LYMPHOCYTES # (AUTO) 0.6 X 10^3 (1.0-4.0); LYMPHOCYTES % (AUTO) 18 % (12-44); MEAN CORPUSCULAR HEMOGLOBIN 27 PG (25-34); MEAN CORPUSCULAR HGB CONC 34 G/DL (32-36); MEAN CORPUSCULAR VOLUME 81 FL (80-99); MEAN PLATELET VOLUME 10.1 FL (7.4-10.4); MONOCYTES # (AUTO) 0.3 X 10^3 (0.0-1.0); MONOCYTES % (AUTO) 10 % (0-12); NEUTROPHILS # (AUTO) 2.4 X 10^3 (1.8-7.8); NEUTROPHILS % (AUTO) 72 % (42-75); PLATELET COUNT 252 10^3/uL (130-400); RED CELL DISTRIBUTION WIDTH 14.4 % (10.0-14.5); WHITE BLOOD COUNT 3.3 10^3/uL (4.3-11.0)
[2020-06-01 05:45] LABS: ALBUMIN 3.6 GM/DL (3.2-4.5)
[2020-06-01 05:46] LABS: CHLORIDE 108 MMOL/L (98-107); POTASSIUM 3.9 MMOL/L (3.6-5.0); SODIUM 138 MMOL/L (135-145)
[2020-06-01 05:47] LABS: CALCIUM 8.9 MG/DL (8.5-10.1)
[2020-06-01 05:48] LABS: GLUCOSE 256 MG/DL (70-105)
[2020-06-01 05:49] LABS: CARBON DIOXIDE 18 MMOL/L (21-32)
[2020-06-01 05:50] LABS: BILIRUBIN,TOTAL 0.2 MG/DL (0.1-1.0)
[2020-06-01 05:51] LABS: ALKALINE PHOSPHATASE 80 U/L (40-136)
[2020-06-01 05:52] LABS: CREATININE SERUM 0.65 MG/DL (0.60-1.30); GFR ESTIMATED > 60
[2020-06-01 05:53] LABS: BUN/CREATININE RATIO 12
[2020-06-01] MEDS: POTASSIUM CL 10MEQ/50ML IVPB 50 ML IV SCH (05:53)
[2020-06-01] MEDS: MAGNESIUM 1 GM/100 ML IVPB 100 ML IV SCH (05:53)
[2020-06-01] MEDS: KCL 20 MEQ TAB (K-DUR) PO SCH (05:54)
[2020-06-01 05:55] LABS: ALANINE AMINOTRANSFERASE 24 U/L (0-55)
[2020-06-01] MEDS: inSUlin ASPART (NovoLOG) 1 UNIT/0.01 ML (CHARGE PER UNIT) SC SCH ×4 (06:31→20:01)
[2020-06-01] MEDS: CATHETER FLUSH 10 ML SYR IV SCH ×3 (06:31→20:01)
[2020-06-01 08:28] VITALS: BP 112/66
[2020-06-01] MEDS: DEXAMETHASONE 10 MG/ML (DECADRON) 1 ML VIAL IV SCH (08:32)
[2020-06-01] MEDS: ACETAMINOPHEN 500 MG TAB (TYLENOL) PO PRN ×2 (10:58→20:01)
[2020-06-01] MEDS: REMDESIVIR INJ (NON-FORMULARY) 100 MG in NS (IVPB) 230 ML IV SCH (10:58)
[2020-06-01] MEDS: ENOXAPARIN 40 MG/0.4 ML (LOVENOX) SYR SC SCH (10:58)
--- NOTE | 2020-06-01 11:31 | Progress Note - Hospitalist ---
Subjective HPI/CC On Admission Date Seen by Provider: Jun 01, 2020 Time Seen by Provider: 10:20 Rakel Ceballos is a 34-year-old female with past medical history of prediabetes and obesity who presented with shortness of breath. She says that her symptoms started on Wednesday. She reports having fevers. She reports a dry cough. She reports having some pleuritic chest pain. She denies any abdominal pain, nausea, vomiting, or diarrhea. She denies tobacco use. Her only medication is metformin. Subjective/Events-last exam she continues to feel short of breath. She continues to have a cough. She de nies any fevers. She has pleuritic chest pain in the center of her chest. She denies any abdominal pain, nausea, or vomiting. She has been eating and drinking without issue. She had oatmeal this morning. Focused Exam Lactate Level 05/30/20 11:40: Lactic Acid Level 1.34 Objective Exam Vital Signs Vital Signs Date Time Temp Pulse Resp B/P (MAP) Pulse Ox O2 Delivery O2 Flow Rate FiO2 06/01/20 08:28 37.4 90 25 112/66 (81) 91 Nasal Cannula 1.00 05/30/20 15:45 21 Capillary Refill : Less Than 3 SecondsLess Than 3 Seconds General Appearance: No Apparent Distress, WD/WN HEENT: PERRL/EOMI, Pharynx Normal Neck: Normal Inspection, Supple Respiratory: Lungs Clear, Normal Breath Sounds, No Respiratory Distress Cardiovascular: Regular Rate, Rhythm, No Edema, No Murmur Gastrointestinal: Normal Bowel Sounds, Non Tender, Soft Extremity: Normal Inspection, Non Tender, No Pedal Edema Neurologic/Psychiatric: Alert, Oriented x3, No Motor/Sensory Deficits, Normal Mood/Affect Skin: Normal Color, Warm/Dry Results/Procedures Lab Laboratory Tests 05/31/20 12:20 06/01/20 05:10 Patient resulted labs reviewed. Imaging: Reviewed Imaging Report Assessment/Plan Assessment and Plan Assess & Plan/Chief Complaint COVID-19 Acute respiratory failure with hypoxia Bilateral pneumonia COVID PCR positive continue Remdesivir and Decadron continue oxygen supplementation, wean as able Hypokalemia Continue to monitor and replace as needed Prediabetes Sliding scale insulin Obesity Clinically significant, no acute management needs DVT prophylaxis: Lovenox Diagnosis/Problems Diagnosis/Problems (1) COVID-19 Status: Acute (2) Acute respiratory failure with hypoxia Status: Acute (3) Prediabetes Status: Chronic (4) Obesity Status: Chronic (5) Bilateral pneumonia Status: Acute Qualifiers: Pneumonia type: due to unspecified organism Lung location: lower lobe of lung Qualified Codes: J18.1 - Lobar pneumonia, unspecified organism (6) Hypokalemia Status: Acute Clinical Quality Measures DVT/VTE Risk/Contraindication: Risk Factor Score Per Nursin RFS Level Per Nursing on Admit: 1=Low/No VTE PPX ROCIO WEISS MD Jun 01, 2020 11:31
[2020-06-01 12:04] VITALS: BP 128/85
[2020-06-01 16:13] VITALS: BP 128/81
[2020-06-01 20:00] VITALS: BP 122/78
[2020-06-02 00:32] VITALS: BP 132/78
[2020-06-02] MEDS: RX-ALBUTEROL INHALER (VENTOLIN HFA) 18 GM IH SCH ×6 (02:38→22:00)
[2020-06-02 04:01] VITALS: BP 114/78
[2020-06-02] MEDS: inSUlin ASPART (NovoLOG) 1 UNIT/0.01 ML (CHARGE PER UNIT) SC SCH ×5 (04:38→21:09)
[2020-06-02] MEDS: CATHETER FLUSH 10 ML SYR IV SCH ×3 (04:38→21:05)
[2020-06-02 05:58] LABS: CHLORIDE 111 MMOL/L (98-107)
[2020-06-02 05:59] LABS: POTASSIUM 3.7 MMOL/L (3.6-5.0); SODIUM 139 MMOL/L (135-145)
[2020-06-02 06:00] LABS: CALCIUM 7.6 MG/DL (8.5-10.1)
[2020-06-02] MEDS: KCL 20 MEQ TAB (K-DUR) PO SCH (06:00)
[2020-06-02] MEDS: MAGNESIUM 1 GM/100 ML IVPB 100 ML IV SCH (06:00)
[2020-06-02] MEDS: POTASSIUM CL 10MEQ/50ML IVPB 50 ML IV SCH (06:00)
[2020-06-02 06:01] LABS: GLUCOSE 252 MG/DL (70-105); TOTAL PROTEIN 5.9 GM/DL (6.4-8.2)
[2020-06-02 06:02] LABS: CARBON DIOXIDE 16 MMOL/L (21-32)
[2020-06-02 06:03] LABS: BILIRUBIN,TOTAL 0.2 MG/DL (0.1-1.0)
[2020-06-02 06:04] LABS: ALKALINE PHOSPHATASE 63 U/L (40-136)
[2020-06-02 06:05] LABS: CREATININE SERUM 0.56 MG/DL (0.60-1.30); GFR ESTIMATED > 60
[2020-06-02 06:06] LABS: BUN/CREATININE RATIO 20
[2020-06-02 06:07] LABS: ALANINE AMINOTRANSFERASE 17 U/L (0-55)
[2020-06-02 08:01] VITALS: BP 120/78
[2020-06-02] MEDS: REMDESIVIR INJ (NON-FORMULARY) 100 MG in NS (IVPB) 230 ML IV SCH (08:03)
[2020-06-02] MEDS: DEXAMETHASONE 10 MG/ML (DECADRON) 1 ML VIAL IV SCH (08:03)
[2020-06-02] MEDS: ONDANSETRON 4 MG/2 ML (SDV) Z0FRAN IV PRN (08:12)
[2020-06-02] MEDS: ENOXAPARIN 40 MG/0.4 ML (LOVENOX) SYR SC SCH (11:26)
--- NOTE | 2020-06-02 12:59 | Progress Note - Hospitalist ---
Subjective HPI/CC On Admission Date Seen by Provider: Jun 02, 2020 Time Seen by Provider: 10:30 Rakel Ceballos is a 34-year-old female with past medical history of prediabetes and obesity who presented with shortness of breath. She says that her symptoms started on Wednesday. She reports having fevers. She reports a dry cough. She reports having some pleuritic chest pain. She denies any abdominal pain, nausea, vomiting, or diarrhea. She denies tobacco use. Her only medication is metformin. Subjective/Events-last exam She continues to have shortness of breath and cough. She denies any fevers and chills. She denies any nausea and vomiting. She is still requiring supplemental oxygen. She is sitting in her bedside chair. She has been eating and drinking without issue. Objective Exam Vital Signs Vital Signs Date Time Temp Pulse Resp B/P (MAP) Pulse Ox O2 Delivery O2 Flow Rate FiO2 06/02/20 10:45 93 Nasal Cannula 2.00 06/02/20 08:01 36.7 83 18 120/78 (92) 05/30/20 15:45 21 Capillary Refill : Less Than 3 SecondsLess Than 3 Seconds General Appearance: No Apparent Distress, Obese Respiratory: Lungs Clear, Normal Breath Sounds, No Respiratory Distress Cardiovascular: Regular Rate, Rhythm, No Edema, No Murmur Gastrointestinal: Normal Bowel Sounds, Non Tender, Soft Extremity: Normal Inspection, Non Tender, No Pedal Edema Neurologic/Psychiatric: Alert, Oriented x3, No Motor/Sensory Deficits, Normal Mood/Affect Skin: Normal Color, Warm/Dry Results/Procedures Lab Laboratory Tests 06/02/20 04:30 Patient resulted labs reviewed. Imaging: Reviewed Imaging Report Assessment/Plan Assessment and Plan Assess & Plan/Chief Complaint COVID-19 Acute respiratory failure with hypoxia Bilateral pneumonia COVID PCR positive continue Remdesivir and Decadron continue oxygen supplementation, wean as able Prediabetes Steroid-induced hyperglycemia Sliding scale insulin Add Levemir 10 units nightly Obesity Clinically significant, no acute management needs DVT prophylaxis: Lovenox Hypokalemia, resolved Diagnosis/Problems Diagnosis/Problems (1) COVID-19 Status: Acute (2) Acute respiratory failure with hypoxia Status: Acute (3) Prediabetes Status: Chronic (4) Obesity Status: Chronic (5) Bilateral pneumonia Status: Acute Qualifiers: Pneumonia type: due to unspecified organism Lung location: lower lobe of lung Qualified Codes: J18.1 - Lobar pneumonia, unspecified organism (6) Hypokalemia Status: Resolved Resolution Date/Time: 06/02/20 @ 12:59 (7) Steroid-induced hyperglycemia Status: Acute Clinical Quality Measures DVT/VTE Risk/Contraindication: Risk Factor Score Per Nursin RFS Level Per Nursing on Admit: 1=Low/No VTE PPX ROCIO WEISS MD Jun 02, 2020 12:59
[2020-06-02 13:00] VITALS: BP 129/60
[2020-06-02 17:00] VITALS: BP 124/68
[2020-06-02] MEDS: ACETAMINOPHEN 500 MG TAB (TYLENOL) PO PRN (17:15)
--- NOTE | 2020-06-02 17:22 | NUR ---
PTS BLOOD SUGAR 440. DR WEISS NOTIFIED AND SAID TO SWITCH TO S/S C.
[2020-06-02 20:00] VITALS: BP 128/82
[2020-06-03] VITALS (7 sets, daily range): BP systolic 104–126; BP diastolic 61–80
[2020-06-03] MEDS: RX-ALBUTEROL INHALER (VENTOLIN HFA) 18 GM IH SCH ×3 (02:40→14:06)
[2020-06-03 05:47] LABS: ALBUMIN 3.6 GM/DL (3.2-4.5); CHLORIDE 104 MMOL/L (98-107); POTASSIUM 4.3 MMOL/L (3.6-5.0); SODIUM 137 MMOL/L (135-145)
[2020-06-03 05:49] LABS: CALCIUM 8.9 MG/DL (8.5-10.1)
[2020-06-03 05:50] LABS: GLUCOSE 249 MG/DL (70-105); TOTAL PROTEIN 6.7 GM/DL (6.4-8.2)
[2020-06-03 05:51] LABS: CARBON DIOXIDE 21 MMOL/L (21-32)
[2020-06-03 05:52] LABS: BILIRUBIN,TOTAL 0.3 MG/DL (0.1-1.0)
[2020-06-03 05:53] LABS: ALKALINE PHOSPHATASE 73 U/L (40-136)
[2020-06-03 05:54] LABS: CREATININE SERUM 0.78 MG/DL (0.60-1.30); GFR ESTIMATED > 60
[2020-06-03 05:55] LABS: BUN/CREATININE RATIO 21
[2020-06-03 05:56] LABS: ALANINE AMINOTRANSFERASE 20 U/L (0-55)
[2020-06-03] MEDS: POTASSIUM CL 10MEQ/50ML IVPB 50 ML IV SCH (06:20)
[2020-06-03] MEDS: MAGNESIUM 1 GM/100 ML IVPB 100 ML IV SCH (06:20)
[2020-06-03] MEDS: KCL 20 MEQ TAB (K-DUR) PO SCH (06:21)
[2020-06-03] MEDS: inSUlin ASPART (NovoLOG) 1 UNIT/0.01 ML (CHARGE PER UNIT) SC SCH ×4 (06:36→20:42)
[2020-06-03] MEDS: CATHETER FLUSH 10 ML SYR IV SCH ×3 (06:36→20:42)
[2020-06-03] MEDS: DEXAMETHASONE 10 MG/ML (DECADRON) 1 ML VIAL IV SCH (07:29)
[2020-06-03] MEDS: ENOXAPARIN 40 MG/0.4 ML (LOVENOX) SYR SC SCH (10:07)
[2020-06-03] MEDS: REMDESIVIR INJ (NON-FORMULARY) 100 MG in NS (IVPB) 230 ML IV SCH (10:35)
--- NOTE | 2020-06-03 14:17 | Progress Note - Hospitalist ---
Subjective HPI/CC On Admission Date Seen by Provider: Jun 03, 2020 Time Seen by Provider: 14:13 Rakel Ceballos is a 34-year-old female with past medical history of prediabetes and obesity who presented with shortness of breath. She says that her symptoms started on Wednesday. She reports having fevers. She reports a dry cough. She reports having some pleuritic chest pain. She denies any abdominal pain, nausea, vomiting, or diarrhea. She denies tobacco use. Her only medication is metformin. Subjective/Events-last exam Pt reports feeling better today. Breathing improving. Less shortness of breath. Objective Exam Vital Signs Vital Signs Date Time Temp Pulse Resp B/P (MAP) Pulse Ox O2 Delivery O2 Flow Rate FiO2 06/03/20 14:06 93 Nasal Cannula 2.00 06/03/20 13:38 36.4 87 28 06/03/20 12:00 20 122/80 (94) Capillary Refill : Less Than 3 SecondsLess Than 3 Seconds General Appearance: No Apparent Distress, WD/WN Respiratory: Lungs Clear, No Respiratory Distress Cardiovascular: Regular Rate, Rhythm, No Murmur Neurologic/Psychiatric: Alert, Oriented x3 Results/Procedures Lab Laboratory Tests 06/03/20 05:15 Patient resulted labs reviewed. Imaging: Reviewed Imaging Report Assessment/Plan Assessment and Plan Assess & Plan/Chief Complaint COVID-19 Acute respiratory failure with hypoxia Bilateral pneumonia COVID PCR positive continue Remdesivir day 4/5 and Decadron continue oxygen supplementation, wean as able Prediabetes Steroid-induced hyperglycemia Sliding scale insulin Continue Levemir 10 units nightly Obesity Clinically significant, no acute management needs DVT prophylaxis: Lovenox Hypokalemia, resolved Diagnosis/Problems Diagnosis/Problems (1) COVID-19 Status: Acute (2) Hypokalemia Status: Resolved Resolution Date/Time: 06/02/20 @ 12:59 (3) Steroid-induced hyperglycemia Status: Acute (4) Acute respiratory failure with hypoxia Status: Acute (5) Prediabetes Status: Chronic (6) Obesity Status: Chronic Qualifiers: Body mass index: BMI 34.0-34.9 Clinical Quality Measures DVT/VTE Risk/Contraindication: Risk Factor Score Per Nursin RFS Level Per Nursing on Admit: 1=Low/No VTE PPX FRANKIE BEEBE MD Jun 03, 2020 14:17
[2020-06-03] MEDS: RT-ALBUTEROL INHALER HFA (VENTOLIN HFA) 18 GM IH SCH (22:22)
[2020-06-04] VITALS: BP 116/63
[2020-06-04] MEDS: RT-ALBUTEROL INHALER HFA (VENTOLIN HFA) 18 GM IH SCH ×3 (03:18→15:05)
[2020-06-04 04:00] VITALS: BP 110/74
[2020-06-04 05:58] LABS: ALBUMIN 3.4 GM/DL (3.2-4.5); CHLORIDE 107 MMOL/L (98-107); POTASSIUM 4.2 MMOL/L (3.6-5.0); SODIUM 136 MMOL/L (135-145)
[2020-06-04 05:59] LABS: CALCIUM 8.6 MG/DL (8.5-10.1)
[2020-06-04 06:00] LABS: GLUCOSE 176 MG/DL (70-105); TOTAL PROTEIN 6.4 GM/DL (6.4-8.2)
[2020-06-04 06:01] LABS: CARBON DIOXIDE 17 MMOL/L (21-32)
[2020-06-04 06:02] LABS: BILIRUBIN,TOTAL 0.3 MG/DL (0.1-1.0)
[2020-06-04 06:04] LABS: ALKALINE PHOSPHATASE 68 U/L (40-136); GFR ESTIMATED > 60
[2020-06-04 06:05] LABS: BUN/CREATININE RATIO 23
[2020-06-04 06:06] LABS: MAGNESIUM 2.1 MG/DL (1.6-2.4)
[2020-06-04 06:07] LABS: ALANINE AMINOTRANSFERASE 18 U/L (0-55)
[2020-06-04] MEDS: MAGNESIUM 1 GM/100 ML IVPB 100 ML IV SCH (06:15)
[2020-06-04] MEDS: KCL 20 MEQ TAB (K-DUR) PO SCH (06:15)
[2020-06-04] MEDS: POTASSIUM CL 10MEQ/50ML IVPB 50 ML IV SCH (06:15)
[2020-06-04] MEDS: CATHETER FLUSH 10 ML SYR IV SCH (06:15)
[2020-06-04] MEDS: inSUlin ASPART (NovoLOG) 1 UNIT/0.01 ML (CHARGE PER UNIT) SC SCH ×3 (06:16→15:10)
[2020-06-04] MEDS: DEXAMETHASONE 10 MG/ML (DECADRON) 1 ML VIAL IV SCH (07:32)
[2020-06-04 08:23] VITALS: BP 120/56
[2020-06-04] MEDS: ACETAMINOPHEN 500 MG TAB (TYLENOL) PO PRN (09:50)
--- NOTE | 2020-06-04 11:48 | NUR ---
RESPIRATORY NOTIFIED OF HOME
[2020-06-04 12:30] VITALS: BP 128/77
[2020-06-04] MEDS: REMDESIVIR INJ (NON-FORMULARY) 100 MG in NS (IVPB) 230 ML IV SCH (12:31)
[2020-06-04] MEDS: ENOXAPARIN 40 MG/0.4 ML (LOVENOX) SYR SC SCH (12:31)
--- NOTE | 2020-06-04 13:04 | Discharge Inst-Simple/Standard ---
Discharge Inst-Standard Reconcile Patient Problems Problems Reviewed?: Yes Patient Instructions/Follow Up Plan of Care/Instructions/FU: Please continue to take your medications as written. Please followup with your primary care doctor within in the next week to follow up your hospital stay. Activity as Tolerated: Yes Discharge Diet: ADA Diet Return to The Hospital For: Chest pain, shortness of breath, fever, if you feel you are getting worse. FRANKIE BEEBE MD Jun 04, 2020 13:04
--- NOTE | 2020-06-04 13:13 | Discharge Summary ---
Diagnosis/Chief Complaint Date of Admission May 30, 2020 at 12:39 Date of Discharge Discharge Date: Jun 04, 2020 Admission Diagnosis Acute respiratory failure with hypoxia [facility] Discharge Diagnosis (1) Bilateral pneumonia Status: Acute (2) Hypokalemia Status: Resolved (3) Steroid-induced hyperglycemia Status: Acute (4) Acute respiratory failure with hypoxia Status: Acute (5) Prediabetes Status: Chronic (6) Obesity Status: Chronic Discharge Summary Discharge Physical Exam Allergies: Coded Allergies: NKANo Known Allergies (Verified Allergy, Unknown, 05/11/06) Vitals & I&Os Vital Signs Date Time Temp Pulse Resp B/P (MAP) Pulse Ox O2 Delivery O2 Flow Rate FiO2 06/04/20 12:30 36.7 72 24 128/77 (94) 94 Room Air 06/04/20 04:00 2.00 06/03/20 13:38 28 General Appearance: No Apparent Distress, WD/WN Respiratory: Lungs Clear, No Respiratory Distress Cardiovascular: Regular Rate, Rhythm, No Murmur Gastrointestinal: Normal Bowel Sounds, Soft Neurologic/Psychiatric: Alert, Oriented x3 Hospital Course Pt was admitted due hypoxic respiratory failure from COVID19. She was treated with decadron and Remdesivir and did very well. She was titrated off oxygen and did well. She was discharged home in stable condition to follow up with her primary care doctor in the next week. Labs (last 24 hrs) Laboratory Tests 06/03/20 15:05: Glucometer 337H 06/03/20 20:36: Glucometer 384H 06/04/20 05:30: Sodium Level 136, Potassium Level 4.2, Chloride Level 107, Carbon Dioxide Level 17L, Anion Gap 12, Blood Urea Nitrogen 16, Creatinine 0.70, Estimat Glomerular Filtration Rate > 60, BUN/Creatinine Ratio 23, Glucose Level 176H, Calcium Level 8.6, Corrected Calcium 9.1, Magnesium Level 2.1, Total Bilirubin 0.3, Aspartate Amino Transf (AST/SGOT) 11, Alanine Aminotransferase (ALT/SGPT) 18, Alkaline Phosphatase 68, Total Protein 6.4, Albumin 3.4 06/04/20 09:50: Glucometer 213H Microbiology 05/30/20 Blood Culture - Preliminary, Resulted Staph, Coag Neg (RN DIABETES) Patient resulted labs reviewed. Pending Labs Laboratory Tests 06/04/20 05:30: Sodium Level 136, Potassium Level 4.2, Chloride Level 107, Carbon Dioxide Level 17, Anion Gap 12, Blood Urea Nitrogen 16, Creatinine 0.70, Estimat Glomerular Filtration Rate > 60, BUN/Creatinine Ratio 23, Glucose Level 176, Calcium Level 8.6, Corrected Calcium 9.1, Magnesium Level 2.1, Total Bilirubin 0.3, Aspartate Amino Transf (AST/SGOT) 11, Alanine Aminotransferase (ALT/SGPT) 18, Alkaline Phosphatase 68, Total Protein 6.4, Albumin 3.4 06/04/20 09:50: Glucometer 213 Imaging: Reviewed Imaging Report Discussion & Recommendations Discharge Planning: >30 minutes discharge planning Discharge Home Medications: Active Scripts Active Reported Metformin HCl 500 Mg Tablet 500 Mg PO BID WITH MEALS Instructions to patient/family Please see electronic discharge instructions given to patient. Clinical Quality Measures DVT/VTE Risk/Contraindication: Risk Factor Score Per Nursin RFS Level Per Nursing on Admit: 1=Low/No VTE PPX Problem Qualifiers (1) Obesity: Body mass index: BMI 34.0-34.9 FRANKIE BEEBE MD Jun 04, 2020 13:13
--- NOTE | 2020-06-04 16:46 | NUR ---
pts saturation was 95% on RA. pt began walking. pt did not desaturate in the 6 minutes of walking. Pt o2 saturation ended on 90% after 6 minutes of walking. pt does not qualify for O2 at home. Addendum: 06/04/20 at 1648 by LON ROMAN RT Amended: Links added.
[2020-06-04 18:30] VITALS: BP 128/77
== END 2020-06-04 18:30 | disposition home or self-care (01) ==
LOC: EDUNIT# 11:17 → ER 11:19 → 4TH 12:39
PROVIDERS: ADMIT Family Medicine; ATTEND Internal Medicine
DX: U07.1 COVID-19 (principal); J96.01 Acute respiratory failure with hypoxia; J18.1 Lobar pneumonia, unspecified organism; E11.9 Type 2 diabetes mellitus without complications; D64.9 Anemia, unspecified; E87.6 Hypokalemia; E66.9 Obesity, unspecified; Z68.34 Body mass index [BMI] 34.0-34.9, adult; Z79.4 Long term (current) use of insulin; Z87.442 Personal history of urinary calculi
CPT/HCPCS: 71045; 80053 ×6; 81000; 82962 ×6; 83605; 83615; 83735 ×2; 84145 ×2; 84703; 85025 ×3; 85379 ×2; 85652; 86141 ×2; 87040; 94640 ×6; 94664; 94760 ×3; 94761; 96361; 96365; 96375; 99284; U0002; 36415; 87635

== ENCOUNTER → 2021-04-02 | Outpatient (CLI) | payer OTHER ==
[~2021-04-02] MED LIST changes: +RT-ALBUTEROL SULF 2.5 MG/3 ML PRE-MIX VIAL INH ONE
== END ==
LOC: RT 15:30
PROVIDERS: ATTEND Nurse Practitioner Family
DX: J45.20 Mild intermittent asthma, uncomplicated (principal); Z86.16 Personal history of COVID-19
CPT/HCPCS: 94060; 94726; 94729